=== PATIENT | female | born 1940 | race Caucasian/White ===

== ENCOUNTER 2016-12-29 12:46 | Inpatient (IN) | payer MEDICARE, OTHER ==
[2016-12-29] MEDS ORDERED: SODIUM CHLORIDE 0.9% 1,000 ML IV ONE ×2 (13:45→21:03)
--- NOTE | 2016-12-29 13:56 | ED Physician Documentation ---
PD HPI ALTERED MENTAL STATUS - Stated complaint Stated Complaint: WEAKNESS,SHAKEY - Chief complaint Chief Complaint: Neuro - History obtained from History obtained from: Patient, Family - History of Present Illness Timing - onset: Other (76-year-old woman with small cell lung cancer, recurrent and metastatic. Most recently she is on oral topotecan last taken December 13- .She presents with a week worth of worsening fatigue and breathlessnessNeutropenia, 100, and thrombocytopenia, 10,000 and they were concerned for potential infection. She does have hypotension on check-in, but these are close to her blood pressure numbers at home. There is no fever. No cough. No urinary complaints. No black or tarry stools.) Review of Systems Ten Systems: 10 systems reviewed and negative Constitutional: reports: Fatigue. denies: Fever, Chills Nose: denies: Rhinorrhea / runny nose, Congestion Cardiac: denies: Chest pain / pressure, Palpitations Respiratory: reports: Dyspnea. denies: Cough GI: denies: Abdominal Pain, Nausea, Vomiting, Diarrhea PD PAST MEDICAL HISTORY - Past Medical History Cardiovascular: Congestive heart failure, Hypertension Respiratory: Shortness of breath, Other Neuro: None Endocrine/Autoimmune: Type 2 diabetes GI: GERD, Other : None HEENT: Chronic vision loss Psych: None Musculoskeletal: Osteoarthritis, Osteoporosis, Chronic back pain Derm: None Other Past Medical History: Lung cancer - Past Surgical History Past Surgical History: Yes General: EGD, Colonoscopy Ortho: Other HEENT: Cataracts, Tonsil/Adenoidectomy - Present Medications Home Medications: Ambulatory Orders Medication Instructions Recorded Confirmed Metoprolol Tartrate [Lopressor] 25 mg PO BID 12/11/12 12/29/16 Acetaminophen [Tylenol] 650 mg PO BID PRN 12/10/13 12/29/16 Furosemide 20 mg PO DAILY 01/10/15 12/29/16 Lidocaine Patch 5% [Lidoderm Patch] 1 each TOP DAILY PRN 06/02/15 12/29/16 Cholecalciferol (Vitamin D3) 2,000 units PO DAILY 04/05/16 12/29/16 [Vitamin D3] Loperamide HCl [Imodium A-D] 2 mg PO QID PRN 04/12/16 12/29/16 Loratadine [Claritin] 10 mg PO QPM 08/30/16 12/29/16 - Allergies Allergies/Adverse Reactions: Allergies Allergy/AdvReac Type Severity Reaction Status Date / Time gluten Allergy Intermediate Cramps Verified 07/21/15 13:44 Sulfa (Sulfonamide Allergy Intermediate Rash Verified 07/21/15 13:44 Antibiotics) - Social History Does the pt smoke?: Yes Smoking Status: Current every day smoker Does the pt drink ETOH?: No Does the pt have substance abuse?: No - Immunizations Immunizations are current?: Yes - POLST Patient has POLST: No PD ED PE NORMAL - Vitals Vital signs reviewed: Yes - General General: Alert and oriented X 3, No acute distress - HEENT HEENT: PERRL, EOMI - Neck Neck: Supple, no meningeal sign, No bony TTP - Cardiac Cardiac: Other (Irregularly irregular, no murmur. There is a port in the left chest without tenderness or redness.) - Respiratory Respiratory: No respiratory distress, Clear bilaterally - Abdomen Abdomen: Non tender - Derm Derm: No rash - Extremities Extremities: No edema, No calf tenderness / cord - Neuro Neuro: Alert and oriented X 3, Normal speech - Psych Psych: Normal mood, Normal affect Results - Vitals Vitals: Vital Signs - 24 hr 12/29/16 12/29/16 12/29/16 12:52 14:53 15:44 Temperature 37.2 C Heart Rate 101 H 106 H 108 H Respiratory 18 14 16 Rate Blood Pressure 88/52 L 103/62 107/68 O2 Saturation 98 97 96 12/29/16 12/29/16 12/29/16 17:29 19:00 19:11 Temperature Heart Rate 104 H 110 H 104 H Respiratory 15 16 13 Rate Blood Pressure 141/61 H 85/67 L 110/52 L O2 Saturation 97 96 99 12/29/16 19:30 Temperature Heart Rate 114 H Respiratory 18 Rate Blood Pressure 128/61 O2 Saturation 97 Oxygen O2 Source [With Activity] Room air O2 Source [Without Activity] Room air O2 Source Room air - EKG (time done) 1410 Rate: Rate (enter#) (92) Rhythm: Atrial fibrillation [place]: Normal Ischemia: Normal ST segments. No: ST elevation c/w ischemia Computer interpretation: Agree with computer - Labs Labs: Laboratory Tests 12/29/16 12/29/16 12/29/16 13:58 13:58 13:58 WBC 0.4 L* RBC 2.89 L Hgb 9.9 L Hct 29.5 L MCV 101.9 H MCH 34.4 H MCHC 33.7 RDW 14.0 Plt Count 10 L* MPV 9.4 Neut # 0.1 L* Lymph # 0.2 L [place] # 0.1 Eos # 0.0 Baso # 0.0 Absolute Nucleated RBC 0.00 Band Neuts % (Manual) Not Reportable Neutrophils # (Manual) FARE COLLECTOR Nucleated RBCs 0.1 Differential Comment MANUAL=AUTO DIFF RBC Morph Micro Appear 1+ MACROCYTOSIS Sodium 134 L Potassium 3.8 Chloride 103 Carbon Dioxide 22 Anion Gap 9.0 BUN 28 H Creatinine 1.0 Estimated GFR (MDRD) 54 L Glucose 110 H Lactic Acid Calcium 8.9 Magnesium 1.4 L Total Bilirubin 0.4 AST 20 ALT 13 Alkaline Phosphatase 63 Troponin I < 0.04 Total Protein 6.4 L Albumin 3.1 L Globulin 3.3 Albumin/Globulin Ratio 0.9 L Lipase 17 L Urine Color Urine Clarity Urine pH Ur Specific [place] Urine Protein Urine Glucose (UA) Urine Ketones Urine Occult Blood Urine Nitrite Urine Bilirubin Urine Urobilinogen Ur Leukocyte Esterase Urine RBC Urine WBC Ur Squamous Epith Cells Urine Bacteria Ur Microscopic Review Urine Culture Comments Blood Type 12/29/16 12/29/16 12/29/16 13:58 14:19 16:40 WBC RBC Hgb Hct MCV MCH MCHC RDW Plt Count MPV Neut # Lymph # [place] # Eos # Baso # Absolute Nucleated RBC Band Neuts % (Manual) Neutrophils # (Manual) Nucleated RBCs Differential Comment RBC Morph Micro Appear Sodium Potassium Chloride Carbon Dioxide Anion Gap BUN Creatinine Estimated GFR (MDRD) Glucose Lactic Acid 1.6 Calcium Magnesium Total Bilirubin AST ALT Alkaline Phosphatase Troponin I Total Protein Albumin Globulin Albumin/Globulin Ratio Lipase Urine Color YELLOW Urine Clarity CLEAR Urine pH 5.5 Ur Specific [place] 1.010 Urine Protein NEGATIVE Urine Glucose (UA) NEGATIVE Urine Ketones NEGATIVE Urine Occult Blood SMALL H Urine Nitrite NEGATIVE Urine Bilirubin NEGATIVE Urine Urobilinogen 0.2 (NORMAL) Ur Leukocyte Esterase NEGATIVE Urine RBC 0-5 Urine WBC 0-3 Ur Squamous Epith Cells MANY Squamous H Urine Bacteria Moderate H Ur Microscopic Review INDICATED Urine Culture Comments NOT INDICATED Blood Type O NEGATIVE - Rads (name of study) CT PA Radiology: EMP read contemporaneously (No PE, chronic lung dz, lung base lensions, IVC reflux.) PD MEDICAL DECISION MAKING - ED course ED course: 76-year-old woman presents with fatigue and breathlessness undergoing oral chemotherapy for recurrent small cell lung cancer. She has new pancytopenia without evidence of bleeding and there is no clinical evidence of infection or fever. I was concerned for PE given active cancer and breathlessness, however this was not found on CT pulmonary angiogram. I spoke with Dr. Huizar, on- call for Dr. Almaguer who felt there was no specific need for admission but the patient was counseled on returning immediately for fever and I also spoke with the head of the [facility] (Lillie Orellana). It took some time to get platelets and they were transfused. About 8 PM she became more severely ill with heart rates up to 200 and A. fib with rigors and acute confusion. She was administered divided doses of metoprolol and then diltiazem IV with some borderline hypotensive episodes which were treated with fluids and calcium IV. At 9:30 PM she was noted to have a fever, 100.3, the blood cultures and lactate were repeated, and she was administered cefepime and vancomycin IV for now neutropenic fever. Spoke with Dr. Nolan for admission at 9:31 PM. - Critical Care Time(min): 52 Time Includes: Direct patient care, Review records, Reassess patient, Document care, Coordinate care, Medical consult, Family consult for tx dec Data interpretation: Labs Procedures included in critical care time: Peripheral IV Procedures excluded from critical care time: EKG Departure - Departure Disposition: 66 [facility] DC/Xfer Clinical Impression: Pancytopenia, Neutropenic fever Small cell lung cancer Qualifiers: Laterality: unspecified laterality Qualified Code(s): C34.90 - Malignant neoplasm of unspecified part of unspecified bronchus or lung Dyspnea Qualifiers: Dyspnea type: unspecified Qualified Code(s): R06.00 - Dyspnea, unspecified Fatigue Qualifiers: Fatigue type: unspecified Qualified Code(s): R53.83 - Other fatigue Condition: Stable Record reviewed to determine appropriate education?: Yes
[2016-12-29 14:21] LABS: ALBUMIN/GLOBULIN RATIO 0.9 (1.0-2.2); BILIRUBIN,TOTAL 0.4 mg/dL (0.2-1.0); CALCIUM 8.9 mg/dL (8.5-10.3); MAGNESIUM 1.4 mg/dL (1.7-2.8); POTASSIUM 3.8 mmol/L (3.5-5.0); TOTAL PROTEIN 6.4 g/dL (6.7-8.2)
[2016-12-29 14:26] LABS: BASOPHILS % (AUTO) 0.2 %; EOSINOPHILS % (AUTO) 0.3 %; HCT - HEMATOCRIT 29.5 % (37.0-47.0); HGB - HEMOGLOBIN 9.9 g/dL (12.0-16.0); LYMPHOCYTES # (AUTO) 0.2 10^3/uL (1.5-3.5); LYMPHOCYTES % (AUTO) 53.7 %; MEAN CORPUSCULAR HEMOGLOBIN 34.4 pg (27.0-31.0); MEAN CORPUSCULAR HGB CONC 33.7 g/dL (32.0-36.0); MEAN CORPUSCULAR VOLUME 101.9 fL (81.0-99.0); MEAN PLATELET VOLUME 9.4 fL (7.9-10.8); MONOCYTES # (AUTO) 0.1 10^3/uL (0.0-1.0); MONOCYTES % (AUTO) 14.4 %; NEUTROPHILS % (AUTO) 31.4 %; NUCLEATED RED BLOOD CELLS AUTO 0.1 /100WBC; RED BLOOD COUNT 2.89 10^6/uL (4.20-5.40); UNCORRECTED WHITE BLOOD COUNT 0.4 x10^3/uL
[2016-12-29 14:28] LABS: NEUTROPHILS # (AUTO) 0.1 10^3/uL (1.5-6.6); WHITE BLOOD COUNT 0.4 x10^3/uL (4.8-10.8)
[2016-12-29 14:51] LABS: NP AUTO DIFFERENTIAL? NO; NP MAN DIFFERENTIAL? YES
[2016-12-29] MEDS ORDERED: IOPAMIDOL-300 100 ML VIAL IVP ONE (15:41)
--- NOTE | 2016-12-29 16:00 | CT Preliminary Report ---
Exam: CT Chest Angio (PE) IMPRESSION: 1. Negative for pulmonary embolism at this time. Unremarkable aorta. 2. Localized rounded densities in both lung bases with associated infiltrative density and extensive underlying chronic lung disease. Inflammatory lesions are likely. Follow-up is recommended to confirm complete clearing. 3. Marked IVC reflux indicating right heart dysfunction. Dilation of right and left atria. [facility] SITE ID: [id number]
--- NOTE | 2016-12-29 16:02 | CT Report ---
EXAM: CT ANGIOGRAM CHEST EXAM DATE: 12/29/2016 03:40 PM. CLINICAL HISTORY: Dyspnea, [facility]. COMPARISON: 23 August 2016. TECHNIQUE: Routine helical imaging was performed through the chest in the pulmonary arterial phase. I V Contrast: 80 cc Isovue 300. Reconstructions: Sagittal, coronal, and 3-D MIP. In accordance with CT protocol optimization, one or more of the following dose reduction techniques w ere utilized for this exam: automated exposure control, adjustment of mA and/or KV based on patient s ize, or use of iterative reconstructive technique. FINDINGS: Pulmonary Arteries: Diagnostic quality: Adequate through the segmental arteries. No evidence for acute or chronic pulmona ry emboli. RV/LV is within normal limits. There is no interventricular septal bowing. There is marked reflux of contrast material in the IVC indicating right heart dysfunction. Lungs/Pleura: Diffuse emphysematous changes with numerous blebs and small bullae especially in the ap ices. Scarring and scattered fibrotic changes. Mild bronchiectasis. Continued decrease of left lower lobe nodule now measuring about 1.5 x 1.1 cm area of new posterior left lower lobe density measuring about 2.1 x 1.6 cm on series 5 image 107. Similar ill-defined density in right base measuring 1.2 cm in diameter on image 122. Mild hazy increased density in the same area. No effusion or pneumothorax. Mediastinum: Normal overall heart size. Enlarged right and left atria. No pericardial effusion. At le ast three-vessel coronary artery calcification. No lymphadenopathy. Thoracic Aorta: Unremarkable. Upper Abdomen: Unremarkable. Other: Osteopenia. Degenerative changes. Left Port-A-Cath. IMPRESSION: 1. Negative for pulmonary embolism at this time. Unremarkable aorta. 2. Localized rounded densities in both lung bases with associated infiltrative density and extensive underlying chronic lung disease. Inflammatory lesions are likely. Follow-up is recommended to confirm complete clearing. 3. Marked IVC reflux indicating right heart dysfunction. Dilation of right and left atria. [facility] Referring Provider Line: [phone] SITE ID: [id number]
[2016-12-29 16:54] LABS: BILIRUBIN,URINE NEGATIVE (NEGATIVE); PH,URINE 5.5 PH (5.0-7.5)
[2016-12-29 16:55] LABS: UA w/ MICROSCOPIC CHARGE YES
[2016-12-29 17:00] LABS: UR CULTURE IF IND NOT INDICATED; WBC,URINE 0-3 /HPF (0-5)
[2016-12-29] MEDS ORDERED: METOPROLOL 5 MG/5 ML VIAL IVP STA (20:39)
[2016-12-29] MEDS ORDERED: METOPROLOL TARTRATE 50 MG TABLET PO STA ×2 (20:39→22:59)
[2016-12-29] MEDS ORDERED: METOPROLOL TARTRATE 25 MG TABLET ONE ×2 (20:45→22:45)
[2016-12-29] MEDS ORDERED: METOPROLOL 5 MG/5 ML VIAL IVP ONE (20:45)
[2016-12-29] MEDS ORDERED: CALCIUM GLUCONATE 1000 MG/10 ML VIAL IVP STA (21:03)
[2016-12-29] MEDS ORDERED: diltiaZEM INJ 5 MG/ML VIAL IVP STA (21:03)
[2016-12-29] MEDS ORDERED: CALCIUM GLUCONATE 1000 MG/10 ML VIAL ONE (21:13)
[2016-12-29] MEDS ORDERED: diltiaZEM INJ 5 MG/ML VIAL ONE (21:14)
[2016-12-29] MEDS ORDERED: ACETAMINOPHEN 1,000 MG/100 ML 100 ML IV STA (21:32)
[2016-12-29] MEDS ORDERED: CEFEPIME 1 GM in SODIUM CHLORIDE 0.9% MINIBAG 100 ML IV STA (21:32)
[2016-12-29] MEDS ORDERED: VANCOMYCIN INJ 1 GM in SODIUM CHLORIDE 0.9% 250 ML IV STA (21:32)
[2016-12-29] MEDS ORDERED: ACETAMINOPHEN 1,000 MG/100 ML 100 ML IV ONE (21:40)
[2016-12-29] MEDS ORDERED: HYDROcod/ACETAM 5/325 MG TABLET PO PRN (22:00)
[2016-12-29] MEDS ORDERED: ONDANSETRON ODT 4 MG TABLET TL PRN (22:00)
[2016-12-29] MEDS ORDERED: ACETAMINOPHEN 325 MG TABLET PO PRN (22:00)
[2016-12-29] MEDS ORDERED: ONDANSETRON 4 MG/2 ML VIAL IVP PRN (22:00)
[2016-12-29] MEDS ORDERED: LOPERAMIDE 2 MG CAPSULE PO PRN (22:02)
[2016-12-29] MEDS ORDERED: LIDOCAINE PATCH 5% TOP PRN (22:02)
[2016-12-29] MEDS ORDERED: VANCOMYCIN 1 GM VIAL ONE (22:46)
[2016-12-29] MEDS ORDERED: VANCOMYCIN PER PHARMACY 1 GM in SODIUM CHLORIDE 0.9% 250 ML IV SCH (23:00)
--- NOTE | 2016-12-29 23:33 | ADVANCE CARE PLANNING NOTE ---
Advance Care Planning - Date/Time Date: 12/29/16 Time: 22:00 - Purpose of encounter Text: Establish wishes for ongoing treatment of potentially teminal cancer in the face of acute severe illness - Parties in attendance Parties in attendance: patient, , daughter and granddaughter with admitting Hospitalist - Decisional capacity Decisional capacity of: patient is impaired. 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 She didn't think she would live beyond 2014 and has been grateful and happy to be living now. she relies on her for everything and has an in home support person come by once a week to bath her. They also have someone help cleaning the house. Treatment was rough and she had two admission for pneumonia/infection in early 2013, a hip fracture after a fall, and an admit for a heart attack in 2014. After her treatment the first time ended in September 2013, she gained weight. Had energy for family gatherings and loved to visit and be visited by friends, family, temple acquaintances. She had definite memory problems but family and worked around those deficits and feel she's had a good quality of life. She was tolerating her first line chemotherapy well and had little side effects other that being more tired than usual and eating less. Food tasted good. No severe diarrhea and no mucositis. She describes still being very content with life. Then the tumor progressed and she was switched to second line chemotherapy early this month. She hasn't done well. Food tastes bad and she has no appetite whatsoever. weight loss is occurring and her fatigue has become severe. she is so short of breath that just getting out of bed to go the bathroom to urinate is completely exhausting. she's sad because she doesn't have the energy to talk to her visitors and she misses that. so sad, a little lonely without all the company. - Objective/Medical story Objective/Medical Story: Small cell lung cancer, limited, 03/2013, with 4 cycles of etoposide and cysplatinin. Treatment completed 09/2013 with prophylactic whole brain radiation. complications were neutropenic fever with 2 admits for pneumonia, iron deficiency requiring infusion, memory loss, mucositis, weight loss. But she recovered and stabilized and only other problems were the fall with hip fracture and the afib with RVR troponin to 5 and subsequent catheterization. Stable for 2 years until recurrent small cell to left lung diagnosed 03/2016. First line with iritotecan failed and progression of tumor occurred. Switched to topotecan early this month and has had 1 treatment with profound pancytopenia as a result. PMH: chronic atrial fib, no longer on coumadin HTN COPD and current smoker memory loss dependent on for bills, house, etc. prolapsed bladder and uterus with ongoing incontinence Type 2 DM diet controlled HPL allergic rhinitis - Goals of Care Goals of care determinations: She wants to live as long as possible but only if she can participate in life with friends and family. If she is reduced to being bed bound, can no longer visit, talk to people, she may want to consider treatment. But for now, her current quality of life even though she is completely dependent on , is good for her. If she has a cardiopulmonary arrest from ND, arrhythmia, respiratory failure: do not resuscitate and do not intubate. - Plan Plan: admit for current episode of sepsis and treat with IV antibiotics, IVF, pressors , blood products as necessary. If she stabilizes and leaves, will probably want to continue therapy as guided by Dr. Almaguer from Oncology as long as her quality of life defined by socialization continues. - Code Status Code Status: Do Not Attempt Resuscitation - Time Spent on Advance Care Planning Time spent on advance care plannin minutes
[2016-12-30] MEDS: METOPROLOL TARTRATE 50 MG TABLET PO SCH ×4 (00:37→20:47)
[2016-12-30] MEDS: SODIUM CHLORIDE FLUSH 0.9% 10 ML SYRINGE IVP SCH ×4 (00:38→22:42)
[2016-12-30] MEDS: SODIUM CHLORIDE 0.9% 1,000 ML IV SCH ×3 (00:39→16:07)
[2016-12-30] MEDS ORDERED: SODIUM CHLORIDE 0.9% 500 ML IV ONE (00:47)
[2016-12-30] MEDS ORDERED: SODIUM CHLORIDE 0.9% 500 ML IV SCH (01:51)
[2016-12-30 02:27] LABS: BILIRUBIN,URINE NEGATIVE (NEGATIVE); PH,URINE 5.5 PH (5.0-7.5)
[2016-12-30 02:33] LABS: UR CULTURE IF IND NOT INDICATED; WBC,URINE 0-3 /HPF (0-5)
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
[2016-12-30] MEDS ORDERED: CEFEPIME 1 GM in SODIUM CHLORIDE 0.9% MINIBAG 100 ML IV SCH (03:00)
[2016-12-30] MEDS: DOPamine 800 MG/500 ML 500 ML IV SCH (03:43)
[2016-12-30] MEDS: SODIUM CHLORIDE FLUSH 0.9% 10 ML SYRINGE IVP PRN ×3 (05:50→20:52)
[2016-12-30 06:17] LABS: CALCIUM 8.2 mg/dL (8.5-10.3); POTASSIUM 3.2 mmol/L (3.5-5.0)
[2016-12-30] MEDS ORDERED: POTASSIUM CHLORIDE 20 MEQ TABLET PO ONE (08:00)
[2016-12-30 08:28] LABS: BASOPHILS % (AUTO) 0.3 %; EOSINOPHILS % (AUTO) 0.5 %; HCT - HEMATOCRIT 28.8 % (37.0-47.0); HGB - HEMOGLOBIN 9.6 g/dL (12.0-16.0); LYMPHOCYTES # (AUTO) 0.1 10^3/uL (1.5-3.5); LYMPHOCYTES % (AUTO) 30.2 %; MEAN CORPUSCULAR HEMOGLOBIN 33.8 pg (27.0-31.0); MEAN CORPUSCULAR HGB CONC 33.2 g/dL (32.0-36.0); MEAN CORPUSCULAR VOLUME 101.7 fL (81.0-99.0); MEAN PLATELET VOLUME 8.1 fL (7.9-10.8); MONOCYTES % (AUTO) 8.5 %; NEUTROPHILS % (AUTO) 60.5 %; NUCLEATED RED BLOOD CELLS AUTO 1.4 /100WBC; RED BLOOD COUNT 2.83 10^6/uL (4.20-5.40); RED CELL DISTRIBUTION WIDTH 14.4 % (12.0-15.0); UNCORRECTED WHITE BLOOD COUNT 0.3 x10^3/uL
[2016-12-30 08:34] LABS: NEUTROPHILS # (AUTO) 0.2 10^3/uL (1.5-6.6); WHITE BLOOD COUNT 0.3 x10^3/uL (4.8-10.8)
[2016-12-30] MEDS: NEUTRA-PHOS 250 MG TABLET PO SCH ×2 (08:38→10:58)
[2016-12-30] MEDS: MAGNESIUM SULFATE 2 GRAM 50 ML IV SCH ×2 (08:38→09:51)
[2016-12-30 09:01] LABS: PLATELET ESTIMATE, MANUAL DECREASED (<130,000) (NORMAL)
[2016-12-30] MEDS: POLYETHYLENE GLYCOL 3350 17 GM PACKET PO SCH (09:02)
[2016-12-30] MEDS ORDERED: SODIUM CHLORIDE FLUSH 0.9% 10 ML SYRINGE IVP ONE (09:44)
[2016-12-30] MEDS ORDERED: SODIUM CHLORIDE 0.9% 1,000 ML IV ONE (15:09)
--- NOTE | 2016-12-30 15:22 | PROVIDER PROGRESS NOTE ---
Assessment/Plan - Problem List (1) Septic shock Assessment/Plan: Patient presented to the ER for a platelet transfusion but while in the ER she spiked a fever of 38.3 and was neutropenic with a ANC of 100 Work up showed possible pneumonia on CT chest Once patient arrived on floor she became hypotensive with BP down to 70/45 and tachycardic despite several liters of IVF Patient was then transferred to ICU and placed on a dobutamine drip Patients lactic acid was elevated to 8.4 Other possible source is infection of the port with bacteremia but port does not appear infected Plan: Wean off dopamine Echo to look for possible cardiogenic shock as patient has elevated troponin IVFs IV Vanco and cefepime Monitor lactic acid down to 1.9 this am Neutropenic percautions Monitor closely in ICU Blood cultures pending (2) Neutropenic fever Assessment/Plan: Patient presented with ANC of 100 as she is on chemo for recurrence of small cell lung ca and was found to have fever in ER up to 38.3 Patient went into septic shock and admitted to ICU on a dopamine drip Source appears to be pneumonia Plan: Monitor neutrophil count IV abx with Vanco and cefepime Monitor for fevers Awaiting blood cultures (3) HCAP (healthcare-associated pneumonia) Assessment/Plan: Neutropenic fever with septic shock likely secondary to HCAP as patient is on chemotherapy and CT chest shows rounded densities with associated infiltrative density which could be secondary to infectious process Patient is on 2 L of O2 Plan: IV vanco and cefepime Blood cx pending Supplemental O2 Monitor closely (4) Elevated troponin Assessment/Plan: Troponin elevated at 0.78 This is most likely secondary to septic shock with lactic acid also being 8.4 However Echo shows EF of 25% which is huge decline from past Echo in 2015 with 50% There is global hypokinesis without regional wall motion abnormalities Patient will need cardiology evaluation but currently is too sick to be evaluated Plan: Start lipitor, metoprolol and lisinopril Patient cannot get ASA as Plt count is only 18 No heparin as patients plts are 18K too high of a risk of bleeding Trend Trop (5) Systolic heart failure Qualifiers: Heart failure chronicity: unspecified heart failure chronicity Qualified Code(s): I50.20 - Unspecified systolic (congestive) heart failure Assessment/Plan: Echo shows EF of 25% which appears acute normal EF in 2015 Patient also with elevated Trop this could be secondary to stress from current infection or shock to the myocardium vs myocardial ischemia from [place] which is unlikely given lack of chest pain or EKG changes Patient hypoxic but does not appear volume overloaded on exam or on CT Patients hypotension maybe a result of new onset heart failure or shock to the myocardium Plan: Optimal treatment for systolic heart failure Metoprolol, lisinopril and consider aldactone once patient more stable and off pressors Will need cardiology evaluation once more stable Monitor Tele (6) Pancytopenia Assessment/Plan: Secondary to chemotherapy Patients neutropenic with ANC of 100, anemic with Hb of 9.9 and thrombocytopenic with Plt count of 18 Patient presented with plt count of 10 and received 6 pack Plt transfusion Monitor CBC daily Transfuse if hb less than 7 plts less than 10 or bleeding (7) Small cell lung cancer Qualifiers: Laterality: unspecified laterality Qualified Code(s): C34.90 - Malignant neoplasm of unspecified part of unspecified bronchus or lung Assessment/Plan: Recurrent Small Cell Lung Ca On chemo Pancytopenic Has a port Will need to hold off on chemo till she is over current infection (8) Hypokalemia Assessment/Plan: Replace K Monitor (9) Hypophosphatemia Assessment/Plan: Replace Phos Monitor (10) Hypomagnesemia Assessment/Plan: Replace Mg Monitor (11) Chronic atrial fibrillation Assessment/Plan: In a fib on EKG Rate is elevated secondary to sepsis Not on coumadin Monitor on tele Will start metoprolol once patients BP is improved and no longer in shock - Current Meds Current Meds: Current Medications Generic Name Dose Route Start Last Admin Trade Name Freq PRN Reason Stop Dose Admin Sodium Chloride 1,000 mls @ 100 mls/hr 12/29/16 22:00 12/30/16 05:49 Normal Saline 0.9% IV 100 mls/hr .Q10H HENRIETTA Administration Dopamine HCl/Dextrose 500 mls @ 2.753 mls/hr 12/30/16 03:00 12/30/16 08:30 Dopamine IV 0 mcg/kg/min .Q72H HENRIETTA Titration Protocol 2 MCG/KG/MIN Metoprolol Tartrate 25 mg 12/29/16 23:00 12/30/16 09:02 Lopressor PO Not Given BID HENRIETTA Polyethylene Glycol 17 gm 12/30/16 09:00 12/30/16 09:02 Miralax PO Not Given DAILY HENRIETTA Sodium Chloride 10 ml 12/29/16 22:00 12/30/16 05:50 Normal Saline Flush 0.9% IVP 10 ml Q8HR HENRIETTA Administration Sodium Chloride 10 ml 12/29/16 22:00 12/30/16 11:03 Normal Saline Flush 0.9% IVP 10 ml PRN PRN Administration NEEDED PER PROVIDER ORDERS - Lab Result Lab results reviewed: Yes Fish Bone Diagrams: 12/30/16 08:17 12/30/16 05:42 Other Lab Results: Laboratory Results WBC 0.3 x10^3/uL (4.8-10.8) L* 12/30/16 08: RBC 2.83 10^6/uL (4.20-5.40) L 12/30/16 08: Hgb 9.6 g/dL (12.0-16.0) L 12/30/16 08:17 Hct 28.8 % (37.0-47.0) L 12/30/16 08:17 MCV 101.7 fL (81.0-99.0) H 12/30/16 08:17 MCH 33.8 pg (27.0-31.0) H 12/30/16 08: MCHC 33.2 g/dL (32.0-36.0) 12/30/16 08: RDW 14.4 % (12.0-15.0) 12/30/16 08:17 Plt Count 18 10^3/uL (130-450) L* 12/30/16 08: MPV 8.1 fL (7.9-10.8) 12/30/16 08:17 Neut # 0.2 10^3/uL (1.5-6.6) L* 12/30/16 08:17 Lymph # 0.1 10^3/uL (1.5-3.5) L 12/30/16 08:17 Tucker # 0.0 10^3/uL (0.0-1.0) 12/30/16 08:17 Eos # 0.0 10^3/uL (0.0-0.7) 12/30/16 08: Baso # 0.0 10^3/uL (0.0-0.1) 12/30/16 08:17 Absolute Nucleated RBC 0.00 x10^3/uL 12/30/16 08:17 Band Neuts % (Manual) Not Reportable 12/29/16 13:58 Neutrophils # (Manual) CUSTOMER QUALITY ENGINEER 12/29/16 13:58 Nucleated RBCs 1.4 /100WBC 12/30/16 08:17 Differential Comment MANUAL=AUTO DIFF 12/29/16 13:58 Manual Slide Review Indicated 12/30/16 08: Platelet Estimate DECREASED (<130,000) (NORMAL) 12/30/16 08:17 RBC Morph Micro Appear 2+ ANISOCYTOSIS (NORMAL) 1+ MACROCYTOSIS (NORMAL) 12/30/16 08: RBC Morph Micro Appear 2+ ANISOCYTOSIS (NORMAL) 1+ MACROCYTOSIS (NORMAL) 12/30/16 08:17 Sodium 137 mmol/L (135-145) 12/30/16 05:42 Potassium 3.2 mmol/L (3.5-5.0) L 12/30/16 05:42 Chloride 109 mmol/L (101-111) 12/30/16 05:42 Carbon Dioxide 19 mmol/L (21-32) L 12/30/16 05:42 Anion Gap 9.0 (6-13) 12/30/16 05:42 BUN 26 mg/dL (6-20) H 12/30/16 05:42 Creatinine 1.0 mg/dL (0.4-1.0) 12/30/16 05:42 Estimated GFR (MDRD) 54 (>89) L 12/30/16 05:42 Glucose 111 mg/dL (70-100) H 12/30/16 05:42 Lactic Acid 1.9 mmol/L (0.5-2.2) 12/30/16 08:17 Calcium 8.2 mg/dL (8.5-10.3) L 12/30/16 05:42 Phosphorus 2.4 mg/dL (2.5-4.6) L 12/30/16 05:42 Magnesium 2.7 mg/dL (1.7-2.8) 12/30/16 14:35 Total Bilirubin 0.4 mg/dL (0.2-1.0) 12/29/16 13:58 AST 20 IU/L (10-42) 12/29/16 13:58 ALT 13 IU/L (10-60) 12/29/16 13:58 Alkaline Phosphatase 63 IU/L (42-121) 12/29/16 13:58 Troponin I 0.55 ng/mL (<0.49) H* 12/30/16 14:35 Total Protein 6.4 g/dL (6.7-8.2) L 12/29/16 13:58 Albumin 3.1 g/dL (3.2-5.5) L 12/30/16 08:17 Globulin 3.3 g/dL (2.1-4.2) 12/29/16 13:58 Albumin/Globulin Ratio 0.9 (1.0-2.2) L 12/29/16 13:58 Lipase 17 U/L (22-51) L 12/29/16 13:58 Urine Color YELLOW 12/30/16 02:10 Urine Clarity CLEAR (CLEAR) 12/30/16 02:10 Urine pH 5.5 PH (5.0-7.5) 12/30/16 02:10 Ur Specific [place] <=1.005 (1.002-1.030) 12/30/16 02:10 Urine Protein NEGATIVE mg/dL (NEGATIVE) 12/30/16 02:10 Urine Glucose (UA) NEGATIVE mg/dL (NEGATIVE) 12/30/16 02:10 Urine Ketones NEGATIVE mg/dL (NEGATIVE) 12/30/16 02:10 Urine Occult Blood SMALL (NEGATIVE) H 12/30/16 02:10 Urine Nitrite NEGATIVE (NEGATIVE) 12/30/16 02:10 Urine Bilirubin NEGATIVE (NEGATIVE) 12/30/16 02:10 Urine Urobilinogen 0.2 (NORMAL) E.U./dL (NORMAL) 12/30/16 02:10 Ur Leukocyte Esterase NEGATIVE (NEGATIVE) 12/30/16 02:10 Urine RBC 0-5 /HPF (0-5) 12/30/16 02:10 Urine WBC 0-3 /HPF (0-5) 12/30/16 02:10 Ur Squamous Epith Cells FEW Squamous (<= Few) 12/30/16 02:10 Urine Bacteria Few /HPF (None Seen) 12/30/16 02:10 Ur Microscopic Review INDICATED 12/29/16 16:40 Urine Culture Comments NOT INDICATED 12/30/16 02:10 Last Dose Date UNK 12/29/16 22:02 Last Dose Time UNK 12/29/16 22:02 Digoxin < 0.2 ng/mL 12/29/16 22:02 Blood Type O NEGATIVE 12/29/16 14:19 - EKG Results EKG Interpreted Independently: Yes EKG Findings: Atrial fibrillation - Diagnostic Imaging Results Diagnostic Imaging Results: Final report reviewed - Additional Planning Condition/Complexity: Critical My Orders: My Active Orders 12/30/16 11:00 Echo Transthoracic Complete [ECHO] Stat 12/30/16 15:09 Sodium Chloride 0.9% [Normal Saline 0.9%] 1,000 ml IV ONCE 12/30/16 20:30 TROPONIN I [IAI] Q6H 12/30/16 Lunch Regular Diet [DIET] 01/03/17 03:30 VANCOMYCIN TROUGH [CHEM] Timed Plan Discussed with:: Patient, Family Time Spent: 31-60 minutes Subjective - Subjective Patient Reports: Feeling Better (She feels better this morning. No fever since last night. She was eating states her appetite is not bad. She is not nauseated or vomiting. She denies any chest pain. She denies any cough.) Nursing Reports: No Complaints Objective Vital Signs: Vital Signs - 24 hr 12/29/16 12/29/16 12/29/16 22:06 22:30 23:00 Temperature 100.1 C H 38.2 C H Heart Rate 128 H 130 H Heart Rate [ Brachial] Heart Rate [ Monitoring electrodes] Respiratory 16 27 H Rate Blood Pressure 108/51 L 98/57 L Blood Pressure [Left Brachial artery] Blood Pressure [Right Brachial artery] O2 Saturation 94 95 12/29/16 12/29/16 12/30/16 23:01 23:30 00:35 Temperature 38.3 C H Heart Rate Heart Rate [ 72 115 H Brachial] Heart Rate [ Monitoring electrodes] Respiratory 20 Rate Blood Pressure 98/57 L Blood Pressure 86/70 L [Left Brachial artery] Blood Pressure 70/45 L [Right Brachial artery] O2 Saturation 95 12/30/16 12/30/16 12/30/16 00:37 01:24 02:21 Temperature Heart Rate Heart Rate [ 113 H 93 Brachial] Heart Rate [ Monitoring electrodes] Respiratory Rate Blood Pressure 70/45 L Blood Pressure 78/51 L [Left Brachial artery] Blood Pressure 77/42 L 75/49 L [Right Brachial artery] O2 Saturation 12/30/16 12/30/16 12/30/16 03:08 03:32 03:40 Temperature 36.9 C Heart Rate Heart Rate [ 94 110 H 121 H Brachial] Heart Rate [ Monitoring electrodes] Respiratory 20 18 Rate Blood Pressure Blood Pressure [Left Brachial artery] Blood Pressure 87/49 L 97/58 L 90/64 [Right Brachial artery] O2 Saturation 96 98 12/30/16 12/30/16 12/30/16 03:45 03:50 03:55 Temperature Heart Rate Heart Rate [ 107 H 113 H 114 H Brachial] Heart Rate [ Monitoring electrodes] Respiratory Rate Blood Pressure Blood Pressure [Left Brachial artery] Blood Pressure 88/57 L 96/47 L 93/59 L [Right Brachial artery] O2 Saturation 12/30/16 12/30/16 12/30/16 04:00 04:15 04:30 Temperature Heart Rate Heart Rate [ 105 H 103 H 104 H Brachial] Heart Rate [ Monitoring electrodes] Respiratory 14 Rate Blood Pressure Blood Pressure [Left Brachial artery] Blood Pressure 105/72 93/58 L 89/52 L [Right Brachial artery] O2 Saturation 91 L 12/30/16 12/30/16 12/30/16 04:37 04:40 04:45 Temperature Heart Rate Heart Rate [ Brachial] Heart Rate [ 96 98 106 H Monitoring electrodes] Respiratory Rate Blood Pressure Blood Pressure [Left Brachial artery] Blood Pressure 102/50 L 94/57 L 114/63 [Right Brachial artery] O2 Saturation 12/30/16 12/30/16 12/30/16 04:50 04:55 05:00 Temperature Heart Rate Heart Rate [ Brachial] Heart Rate [ 92 90 99 Monitoring electrodes] Respiratory 18 Rate Blood Pressure Blood Pressure [Left Brachial artery] Blood Pressure 110/58 L 113/65 120/60 [Right Brachial artery] O2 Saturation 95 12/30/16 12/30/16 12/30/16 05:15 05:30 06:00 Temperature Heart Rate Heart Rate [ Brachial] Heart Rate [ 93 97 124 H Monitoring electrodes] Respiratory 20 Rate Blood Pressure Blood Pressure [Left Brachial artery] Blood Pressure 125/63 128/73 107/85 H [Right Brachial artery] O2 Saturation 98 12/30/16 12/30/16 12/30/16 06:05 06:10 06:15 Temperature Heart Rate Heart Rate [ Brachial] Heart Rate [ 130 H 133 H 136 H Monitoring electrodes] Respiratory Rate Blood Pressure Blood Pressure [Left Brachial artery] Blood Pressure 120/93 H 107/75 109/61 [Right Brachial artery] O2 Saturation 12/30/16 12/30/16 12/30/16 06:30 07:00 07:30 Temperature 36.5 C Heart Rate Heart Rate [ Brachial] Heart Rate [ 105 H 100 101 H Monitoring electrodes] Respiratory 28 H 23 Rate Blood Pressure Blood Pressure [Left Brachial artery] Blood Pressure 110/61 127/69 128/68 [Right Brachial artery] O2 Saturation 100 96 12/30/16 12/30/16 12/30/16 08:00 08:51 09:02 Temperature 36.2 C L Heart Rate Heart Rate [ Brachial] Heart Rate [ 150 H 118 H Monitoring electrodes] Respiratory 25 H 21 Rate Blood Pressure 118/72 Blood Pressure [Left Brachial artery] Blood Pressure 110/68 109/72 [Right Brachial artery] O2 Saturation 98 100 12/30/16 12/30/16 12/30/16 10:00 10:47 11:05 Temperature 36.3 C L Heart Rate Heart Rate [ Brachial] Heart Rate [ 94 92 108 H Monitoring electrodes] Respiratory 19 14 16 Rate Blood Pressure Blood Pressure [Left Brachial artery] Blood Pressure 103/73 111/62 105/91 H [Right Brachial artery] O2 Saturation 98 100 99 12/30/16 12/30/16 12/30/16 11:51 12:00 12:55 Temperature 36.8 C 37.4 C Heart Rate Heart Rate [ Brachial] Heart Rate [ 100 100 104 H Monitoring electrodes] Respiratory 17 18 15 Rate Blood Pressure Blood Pressure [Left Brachial artery] Blood Pressure 97/57 L 93/65 99/57 L [Right Brachial artery] O2 Saturation 100 98 96 12/30/16 12/30/16 12/30/16 13:44 13:55 14:56 Temperature Heart Rate Heart Rate [ Brachial] Heart Rate [ 97 91 111 H Monitoring electrodes] Respiratory 15 17 19 Rate Blood Pressure Blood Pressure [Left Brachial artery] Blood Pressure 98/60 98/60 114/84 H [Right Brachial artery] O2 Saturation 100 98 93 12/30/16 15:00 Temperature Heart Rate Heart Rate [ Brachial] Heart Rate [ 114 H Monitoring electrodes] Respiratory 17 Rate Blood Pressure Blood Pressure [Left Brachial artery] Blood Pressure 117/82 H [Right Brachial artery] O2 Saturation 98 Oxygen O2 Source Nasal cannula I&O (Last 24 Hrs): Intake and Output Totals x24h 12/28/16 12/29/16 12/30/16 23:59 23:59 23:59 Intake Total 500 1540 Output Total 1100 Balance 500 440 General: Alert, Oriented x3, Cooperative, Other (Cachectic looking female with alopecia) HEENT: Atraumatic, PERRLA, EOMI, Other (Very dry mucus membranes) Neck: Supple, No JVD, No thyromegaly, +2 carotid pulse wo bruit, No LAD Lymphatic: no adenopathy Neuro: Alert, Non Focal, CN 2-12 Grossly Intact, Oriented Times 3 Cardiovascular: Other (Irregular, tachycardic, S3) Respiratory: Chest non-tender, Rhonchi (Coarse breath sounds bilaterally) Abdomen: Normal bowel sounds, Soft, No tenderness Extremities: No clubbing, No cyanosis, No edema, Normal pulses Skin: No rashes, No breakdown - Results Results: Laboratory Results WBC 0.3 x10^3/uL (4.8-10.8) L* 12/30/16 08: RBC 2.83 10^6/uL (4.20-5.40) L 12/30/16 08:17 Hgb 9.6 g/dL (12.0-16.0) L 12/30/16 08: Hct 28.8 % (37.0-47.0) L 12/30/16 08:17 MCV 101.7 fL (81.0-99.0) H 12/30/16 08:17 MCH 33.8 pg (27.0-31.0) H 12/30/16 08:17 MCHC 33.2 g/dL (32.0-36.0) 12/30/16 08:17 RDW 14.4 % (12.0-15.0) 12/30/16 08:17 Plt Count 18 10^3/uL (130-450) L* 12/30/16 08:17 MPV 8.1 fL (7.9-10.8) 12/30/16 08:17 Neut # 0.2 10^3/uL (1.5-6.6) L* 12/30/16 08:17 Lymph # 0.1 10^3/uL (1.5-3.5) L 12/30/16 08:17 Tucker # 0.0 10^3/uL (0.0-1.0) 12/30/16 08:17 Eos # 0.0 10^3/uL (0.0-0.7) 12/30/16 08:17 Baso # 0.0 10^3/uL (0.0-0.1) 12/30/16 08:17 Absolute Nucleated RBC 0.00 x10^3/uL 12/30/16 08:17 Band Neuts % (Manual) Not Reportable 12/29/16 13:58 Neutrophils # (Manual) CUSTOMER QUALITY ENGINEER 12/29/16 13:58 Nucleated RBCs 1.4 /100WBC 12/30/16 08:17 Differential Comment MANUAL=AUTO DIFF 12/29/16 13:58 Manual Slide Review Indicated 12/30/16 08: Platelet Estimate DECREASED (<130,000) (NORMAL) 12/30/16 08:17 RBC Morph Micro Appear 2+ ANISOCYTOSIS (NORMAL) 1+ MACROCYTOSIS (NORMAL) 12/30/16 08:17 RBC Morph Micro Appear 2+ ANISOCYTOSIS (NORMAL) 1+ MACROCYTOSIS (NORMAL) 12/30/16 08:17 Sodium 137 mmol/L (135-145) 12/30/16 05:42 Potassium 3.2 mmol/L (3.5-5.0) L 12/30/16 05:42 Chloride 109 mmol/L (101-111) 12/30/16 05:42 Carbon Dioxide 19 mmol/L (21-32) L 12/30/16 05:42 Anion Gap 9.0 (6-13) 12/30/16 05:42 BUN 26 mg/dL (6-20) H 12/30/16 05:42 Creatinine 1.0 mg/dL (0.4-1.0) 12/30/16 05:42 Estimated GFR (MDRD) 54 (>89) L 12/30/16 05:42 Glucose 111 mg/dL (70-100) H 12/30/16 05:42 Lactic Acid 1.9 mmol/L (0.5-2.2) 12/30/16 08:17 Calcium 8.2 mg/dL (8.5-10.3) L 12/30/16 05:42 Phosphorus 2.4 mg/dL (2.5-4.6) L 12/30/16 05:42 Magnesium 2.7 mg/dL (1.7-2.8) 12/30/16 14:35 Total Bilirubin 0.4 mg/dL (0.2-1.0) 12/29/16 13:58 AST 20 IU/L (10-42) 12/29/16 13:58 ALT 13 IU/L (10-60) 12/29/16 13:58 Alkaline Phosphatase 63 IU/L (42-121) 12/29/16 13:58 Troponin I 0.55 ng/mL (<0.49) H* 12/30/16 14:35 Total Protein 6.4 g/dL (6.7-8.2) L 12/29/16 13:58 Albumin 3.1 g/dL (3.2-5.5) L 12/30/16 08:17 Globulin 3.3 g/dL (2.1-4.2) 12/29/16 13:58 Albumin/Globulin Ratio 0.9 (1.0-2.2) L 12/29/16 13:58 Lipase 17 U/L (22-51) L 12/29/16 13:58 Urine Color YELLOW 12/30/16 02:10 Urine Clarity CLEAR (CLEAR) 12/30/16 02:10 Urine pH 5.5 PH (5.0-7.5) 12/30/16 02:10 Ur Specific [place] <=1.005 (1.002-1.030) 12/30/16 02:10 Urine Protein NEGATIVE mg/dL (NEGATIVE) 12/30/16 02:10 Urine Glucose (UA) NEGATIVE mg/dL (NEGATIVE) 12/30/16 02:10 Urine Ketones NEGATIVE mg/dL (NEGATIVE) 12/30/16 02:10 Urine Occult Blood SMALL (NEGATIVE) H 12/30/16 02:10 Urine Nitrite NEGATIVE (NEGATIVE) 12/30/16 02:10 Urine Bilirubin NEGATIVE (NEGATIVE) 12/30/16 02:10 Urine Urobilinogen 0.2 (NORMAL) E.U./dL (NORMAL) 12/30/16 02:10 Ur Leukocyte Esterase NEGATIVE (NEGATIVE) 12/30/16 02:10 Urine RBC 0-5 /HPF (0-5) 12/30/16 02:10 Urine WBC 0-3 /HPF (0-5) 12/30/16 02:10 Ur Squamous Epith Cells FEW Squamous (<= Few) 12/30/16 02:10 Urine Bacteria Few /HPF (None Seen) 12/30/16 02:10 Ur Microscopic Review INDICATED 12/29/16 16:40 Urine Culture Comments NOT INDICATED 12/30/16 02:10 Last Dose Date UNK 12/29/16 22:02 Last Dose Time UNK 12/29/16 22:02 Digoxin < 0.2 ng/mL 12/29/16 22:02 Blood Type O NEGATIVE 12/29/16 14:19 - Procedures Procedures: Procedures INSERTION OF TOTALLY IMPLANTABLE VASC ACCESS DEVIC (05/21/13) PACKED CELL TRANSFUSION (01/10/15) PARTIAL HIP REPLACEMENT (01/10/15) REPLACEMENT OF LEFT LENS WITH SYNTH SUB, PERC APPROACH (08/12/15) REPLACEMENT OF RIGHT LENS WITH SYNTH SUB, PERC APPROACH (07/22/15)
[2016-12-30] MEDS: LORATADINE 10 MG TABLET PO SCH (20:51)
[2016-12-30] MEDS: ATORVASTATIN 40 MG TABLET PO SCH (20:51)
[2016-12-30] MEDS: CEFEPIME 1 GM in SODIUM CHLORIDE 0.9% MINIBAG 100 ML IV SCH (22:42)
[2016-12-31] MEDS: METOPROLOL 5 MG/5 ML VIAL IVP PRN ×3 (01:59→10:50)
[2016-12-31] MEDS: SODIUM CHLORIDE 0.9% 1,000 ML IV SCH ×2 (02:33→13:39)
[2016-12-31] MEDS: VANCOMYCIN INJ 500 MG in SODIUM CHLORIDE 0.9% MINIBAG 100 ML IV SCH (04:09)
[2016-12-31 06:37] LABS: BASOPHILS % (AUTO) 0.2 %; EOSINOPHILS % (AUTO) 1.3 %; HGB - HEMOGLOBIN 8.2 g/dL (12.0-16.0); LYMPHOCYTES % (AUTO) 46.5 %; MEAN CORPUSCULAR HEMOGLOBIN 33.6 pg (27.0-31.0); MEAN CORPUSCULAR HGB CONC 32.6 g/dL (32.0-36.0); MEAN PLATELET VOLUME 9.1 fL (7.9-10.8); MONOCYTES % (AUTO) 13.9 %; NEUTROPHILS % (AUTO) 38.1 %; RED BLOOD COUNT 2.43 10^6/uL (4.20-5.40); RED CELL DISTRIBUTION WIDTH 14.3 % (12.0-15.0); UNCORRECTED WHITE BLOOD COUNT 0.8 x10^3/uL
[2016-12-31] MEDS: SODIUM CHLORIDE FLUSH 0.9% 10 ML SYRINGE IVP SCH ×3 (06:42→22:12)
[2016-12-31 06:50] LABS: CALCIUM 7.6 mg/dL (8.5-10.3)
[2016-12-31 06:53] LABS: CALCIUM 7.8 mg/dL (8.5-10.3); CREATININE 0.6 mg/dL (0.4-1.0); PHOSPHORUS 2.5 mg/dL (2.5-4.6)
[2016-12-31 07:03] LABS: CALCIUM, IONIZED 1.11 mmol/L (1.15-1.33); VBG PH 7.28 (7.31-7.41)
[2016-12-31 07:09] LABS: WHITE BLOOD COUNT 0.8 x10^3/uL (4.8-10.8)
[2016-12-31 07:24] LABS: BAND NEUTROPHILS % (MANUAL) 6 %; LYMPHOCYTES % (MANUAL) 52 %; NEUTROPHILS % (MANUAL) 27 %; TOTAL CELLS COUNTED 33
[2016-12-31 07:25] LABS: PLATELET ESTIMATE, MANUAL DECREASED (<130,000) (NORMAL); PLATELET MORPHOLOGY NORMAL APPEARANCE (NORMAL)
[2016-12-31 07:26] LABS: NP AUTO DIFFERENTIAL? YES; NP MAN DIFFERENTIAL? NO
[2016-12-31] MEDS ORDERED: METOPROLOL TARTRATE 50 MG TABLET PO SCH ×2 (07:54→21:00)
[2016-12-31] MEDS ORDERED: DIGOXIN 500 MCG/2 ML AMP IVP ONE (08:25)
[2016-12-31] MEDS: DIGOXIN 125 MCG TABLET PO SCH (09:27)
[2016-12-31] MEDS: LISINOPRIL 5 MG TABLET PO SCH (09:27)
[2016-12-31] MEDS: POLYETHYLENE GLYCOL 3350 17 GM PACKET PO SCH (09:29)
[2016-12-31] MEDS: NEUTRA-PHOS 250 MG TABLET PO SCH ×2 (11:24→14:42)
[2016-12-31] MEDS ORDERED: diltiaZEM INJ 5 MG/ML VIAL IVP ONE (13:15)
[2016-12-31] MEDS: FUROSEMIDE 20 MG/2 ML VIAL IVP ONE ×2 (14:28→18:52)
--- NOTE | 2016-12-31 15:06 | XRAY Preliminary Report ---
Exam: XR Chest 1 View IMPRESSION: Developing infiltrate seen in the right mid/upper lung and addition to the lung bases, in a possible pulmonary edema pattern. Developing small bilateral effusions. [facility] SITE ID: [id number]
--- NOTE | 2016-12-31 15:09 | XRAY Report ---
EXAM: CHEST RADIOGRAPHY EXAM DATE: 12/31/2016 02:40 PM. CLINICAL HISTORY: Hypoxia, tachycardia, respiratory distress. COMPARISON: Chest CT from 12/29/2016. TECHNIQUE: 1 view. FINDINGS: Lungs/Pleura: There are developing infiltrates seen in the right mid/upper lung, in addition to the l blake bases. Possible pulmonary edema pattern. Small bilateral effusions seen. Mediastinum: Within exam limitations, cardiomediastinal contour is normal. Port-A-Cath catheter is in place, terminating in the distal SVC. Other: None. IMPRESSION: Developing infiltrate seen in the right mid/upper lung and addition to the lung bases, in a possible pulmonary edema pattern. Developing small bilateral effusions. [facility] Referring Provider Line: [phone] SITE ID: [id number]
[2016-12-31] MEDS: DIGOXIN 500 MCG/2 ML AMP IVP SCH (16:45)
--- NOTE | 2016-12-31 17:27 | PROVIDER PROGRESS NOTE ---
Assessment/Plan - Problem List (1) Septic shock Assessment/Plan: Patient presented to the ER for a platelet transfusion but while in the ER she spiked a fever of 38.3 and was neutropenic with a ANC of 100 Work up showed possible pneumonia on CT chest Once patient arrived on floor she became hypotensive with BP down to 70/45 and tachycardic despite several liters of IVF Patient was then transferred to ICU and placed on a dobutamine drip Patients lactic acid was elevated to 8.4 Other possible source is infection of the port with bacteremia but port does not appear infected Off dopamine since yesterday with stable BPs No more fevers Blood cx negative Continue IV Vanco and Cefepime day 2 Lactic acid now normal Echo to look for possible cardiogenic shock as patient has elevated troponin Resolved (2) Atrial fibrillation with rapid ventricular rate Assessment/Plan: Patient went into a fib with rvr last night with HR in the 160s up to 180s this am Patient given IV metoprolol overnight Restarted on PO metoprolol yesterday Started a digoxin load this am Patient became hypoxic, tachypnic and had respiratory distress this afternoon likely secondary to pulmonary edema due to rapid a fib in conjunction with her systolic HF with reduced EF Patient give lasix and improved Patient given Dilt 20 mg IV and HR improved Will continue Dig load IV and start PO dig in am and continue PO metoprolol which was increased to 50 mg this am Monitor closely on tele will consider dilt drip if HR goes back up and will continue to titrate PO metoprolol Tele monitoring (3) Systolic heart failure with exacerbation Qualifiers: Heart failure chronicity: unspecified heart failure chronicity Qualified Code(s): I50.20 - Unspecified systolic (congestive) heart failure Assessment/Plan: Echo shows EF of 25% which appears acute normal EF in 2015 Patient also with elevated Trop this could be secondary to stress from current infection or shock to the myocardium vs myocardial ischemia from [place] which is unlikely given lack of chest pain or EKG changes Today patient went into CHF exacerbation likely secondary to rapid a fib with HR in the 160s to 180s despite IV metoprolol and digoxin IV Chest xray showed pulmonary edema Patient given IV lasix with some improvement Will continue to monitor as patient may need more lasix tonight Repeat CXR in the morning monitor BNP daily Strict I and O Tele monitoring Discontinue IVFs (4) Neutropenic fever Assessment/Plan: Patient presented with ANC of 100 as she is on chemo for recurrence of small cell lung ca and was found to have fever in ER up to 38.3 Patient went into septic shock and admitted to ICU on a dopamine drip Source appears to be pneumonia On IV vanco and cefepime day 2 No fevers last 24 hours ANC improved to 300 this am Improving (5) HCAP (healthcare-associated pneumonia) Assessment/Plan: Neutropenic fever with septic shock likely secondary to HCAP as patient is on chemotherapy and CT chest shows rounded densities with associated infiltrative density which could be secondary to infectious process Patient is on 3 L of O2 but developed pulmonary edema with a fib rvr and required lasix Continue IV vanco and cefepime day 2 ANC improved to 300 no fevers last 24 hours Blood cx negative Continue supplemental O2 Monitor closely (6) Elevated troponin Assessment/Plan: Troponin elevated at 0.78 This is most likely secondary to septic shock with lactic acid also being 8.4 However Echo shows EF of 25% which is huge decline from past Echo in 2015 with 50% There is global hypokinesis without regional wall motion abnormalities Patient will need cardiology evaluation but currently is too sick to be evaluated Continue lipitor, metoprolol and lisinopril Patient cannot get ASA as Plt count is only 12 No heparin as patients plts are 12K too high of a risk of bleeding Troponin trended down to 0.43 Will talk to patients staffing assistant Dr Mahajan prior to discharge (7) Pancytopenia Assessment/Plan: Secondary to chemotherapy Patients neutropenic with ANC up to 300, anemic with Hb down 8.2 and thrombocytopenic with Plt count of 12 Patient presented with plt count of 10 and received 6 pack Plt transfusion Monitor CBC daily Transfuse if hb less than 7 plts less than 10 or bleeding (8) Small cell lung cancer Qualifiers: Laterality: unspecified laterality Qualified Code(s): C34.90 - Malignant neoplasm of unspecified part of unspecified bronchus or lung Assessment/Plan: Recurrent Small Cell Lung Ca On chemo Pancytopenic Has a port Will need to hold off on chemo till she is over current infection (9) Hypokalemia Assessment/Plan: Resolved (10) Hypophosphatemia Assessment/Plan: Resolved (11) Hypomagnesemia Assessment/Plan: Resolved (11) Hypocalcemia Assessment/Plan: Ionized calcium 1.11 Replace with IV calcium - Current Meds Current Meds: Current Medications Generic Name Dose Route Start Last Admin Trade Name Daltonq PRN Reason Stop Dose Admin Atorvastatin Calcium 40 mg 12/30/16 21:00 12/30/16 20:51 Lipitor PO 40 mg QPM HENRIETTA Administration Digoxin 100 mcg 12/31/16 17:00 12/31/16 16:45 Lanoxin Inj IVP 01/01/17 01:01 100 mcg Q8H HENRIETTA Administration Digoxin 125 mcg 12/31/16 09:00 12/31/16 09:27 Lanoxin PO 125 mcg DAILY HENRIETTA Administration Sodium Chloride 1,000 mls @ 100 mls/hr 12/29/16 22:00 12/31/16 13:39 Normal Saline 0.9% IV 100 mls/hr .Q10H HENRIETTA Administration Cefepime HCl 1 gm/ Sodium 100 mls @ 200 mls/hr 12/30/16 22:00 12/30/16 22:42 Chloride IV 200 mls/hr Q24H HENRIETTA Administration Vancomycin HCl 500 mg/ Sodium 100 mls @ 100 mls/hr 12/31/16 04:00 12/31/16 04: 09 Chloride IV 100 mls/hr Q36H HENRIETTA Administration Dopamine HCl/Dextrose 500 mls @ 2.753 mls/hr 12/30/16 03:00 12/30/16 08:30 Dopamine IV 0 mcg/kg/min .Q72H HENRIETTA Titration Protocol 2 MCG/KG/MIN Lisinopril 5 mg 12/31/16 09:00 12/31/16 09:27 Zestril PO 5 mg DAILY HENRIETTA Administration Loratadine 10 mg 12/30/16 21:00 12/30/16 20:51 Claritin PO 10 mg QPM HENRIETTA Administration Metoprolol Tartrate 5 mg 12/31/16 01:51 12/31/16 10:50 Lopressor Inj IVP 5 mg BID PRN Administration HR >120 Metoprolol Tartrate 50 mg 12/31/16 07:54 12/31/16 09:29 Lopressor PO 50 mg BID HENRIETTA Administration Polyethylene Glycol 17 gm 12/30/16 09:00 12/31/16 09:29 Miralax PO Not Given DAILY HENRIETTA Sodium Chloride 10 ml 12/29/16 22:00 12/31/16 16:50 Normal Saline Flush 0.9% IVP 10 ml Q8HR HENRIETTA Administration Sodium Chloride 10 ml 12/29/16 22:00 12/30/16 20:52 Normal Saline Flush 0.9% IVP 30 ml PRN PRN Administration NEEDED PER PROVIDER ORDERS - Lab Result Lab results reviewed: Yes Fish Bone Diagrams: 12/31/16 05:12 12/31/16 05:12 - EKG Results EKG Interpreted Independently: Yes - Diagnostic Imaging Results Diagnostic Imaging Results: Final report reviewed - Additional Planning Condition/Complexity: Critical My Orders: My Active Orders 12/30/16 21:00 Atorvastatin [Lipitor] 40 mg PO QPM 12/31/16 07:54 Metoprolol Tartrate [Lopressor] 50 mg PO BID 12/31/16 09:00 Digoxin [Lanoxin] 125 mcg PO DAILY Lisinopril [Zestril] 5 mg PO DAILY 12/31/16 13:00 Dextrose 5% [D5w] 100 ml [id number] INJ [Cardizem Inj] 125 mg IV 5 mg/hr 12/31/16 17:00 Digoxin Inj [Lanoxin Inj] 100 mcg IVP Q8H 01/01/17 05:00 DIGOXIN [CHEM] DAILYLAB 01/02/17 05:00 DIGOXIN [CHEM] DAILYLAB 01/03/17 03:30 VANCOMYCIN TROUGH [CHEM] Timed 01/03/17 05:00 DIGOXIN [CHEM] DAILYLAB 01/04/17 05:00 DIGOXIN [CHEM] DAILYLAB Plan Discussed with:: Patient, Family Time Spent: Greater than 60 minutes Subjective - Subjective Patient Reports: Other (Patient always states she is feeling well. She did get very short of breath and had respiratory distress when she got up in the afternoon. She denies any chest pain or cough. She denies any fevers. She has poor appetite but eating as much as she can.) Nursing Reports: Shortness of Breath Objective Vital Signs: Vital Signs - 24 hr 12/30/16 12/30/16 12/30/16 18:00 19:11 20:05 Temperature 36.4 C L Heart Rate Heart Rate [ 90 105 H 98 Monitoring electrodes] Respiratory 17 21 20 Rate Blood Pressure Blood Pressure 106/74 118/78 102/89 H [Right Brachial artery] O2 Saturation 93 96 97 12/30/16 12/30/16 12/30/16 20:47 21:14 22:04 Temperature 36.5 C Heart Rate Heart Rate [ 121 H 101 H Monitoring electrodes] Respiratory 20 21 Rate Blood Pressure 117/100 H Blood Pressure 117/100 H 118/91 H [Right Brachial artery] O2 Saturation 97 98 12/30/16 12/30/16 12/31/16 23:08 23:54 01:00 Temperature 36.6 C Heart Rate Heart Rate [ 113 H 107 H 131 H Monitoring electrodes] Respiratory 21 19 18 Rate Blood Pressure Blood Pressure 122/78 119/73 131/78 H [Right Brachial artery] O2 Saturation 97 98 97 12/31/16 12/31/16 12/31/16 01:59 02:00 02:29 Temperature Heart Rate Heart Rate [ 155 H Monitoring electrodes] Respiratory 20 Rate Blood Pressure 115/91 H 126/88 H Blood Pressure 115/91 H [Right Brachial artery] O2 Saturation 97 12/31/16 12/31/16 12/31/16 03:00 04:00 05:00 Temperature 36.7 C Heart Rate Heart Rate [ 116 H 127 H 126 H Monitoring electrodes] Respiratory 16 18 20 Rate Blood Pressure Blood Pressure 116/78 121/86 H 131/99 H [Right Brachial artery] O2 Saturation 98 97 96 12/31/16 12/31/16 12/31/16 06:00 06:57 07:29 Temperature 37 C Heart Rate Heart Rate [ 132 H 128 H 163 H Monitoring electrodes] Respiratory 20 22 20 Rate Blood Pressure Blood Pressure 119/85 H 120/74 [Right Brachial artery] O2 Saturation 97 98 92 12/31/16 12/31/16 12/31/16 07:32 07:38 07:45 Temperature 37.4 C Heart Rate Heart Rate [ 165 H 153 H Monitoring electrodes] Respiratory 25 H 20 Rate Blood Pressure Blood Pressure 134/84 H 134/84 H 133/81 H [Right Brachial artery] O2 Saturation 97 94 96 12/31/16 12/31/16 12/31/16 07:47 07:50 07:55 Temperature Heart Rate Heart Rate [ 144 H 130 H Monitoring electrodes] Respiratory 22 20 Rate Blood Pressure 133/81 H Blood Pressure 121/79 121/73 [Right Brachial artery] O2 Saturation 98 97 12/31/16 12/31/16 12/31/16 08:00 08:17 08:20 Temperature Heart Rate 128 H Heart Rate [ 121 H Monitoring electrodes] Respiratory 20 Rate Blood Pressure 110/73 Blood Pressure 114/101 H [Right Brachial artery] O2 Saturation 97 12/31/16 12/31/16 12/31/16 08:58 09:29 09:57 Temperature Heart Rate Heart Rate [ 144 H 144 H Monitoring electrodes] Respiratory 22 22 Rate Blood Pressure 130/79 Blood Pressure 123/75 131/85 H [Right Brachial artery] O2 Saturation 99 98 12/31/16 12/31/16 12/31/16 10:50 10:51 11:20 Temperature 37.0 C Heart Rate Heart Rate [ 126 H Monitoring electrodes] Respiratory 23 Rate Blood Pressure 119/80 124/54 L Blood Pressure 119/80 [Right Brachial artery] O2 Saturation 96 12/31/16 12/31/16 12/31/16 11:51 12:00 13:00 Temperature Heart Rate Heart Rate [ 121 H 110 H 131 H Monitoring electrodes] Respiratory 23 23 20 Rate Blood Pressure Blood Pressure 122/73 116/96 H 129/74 [Right Brachial artery] O2 Saturation 97 98 98 12/31/16 12/31/16 12/31/16 13:07 13:18 14:00 Temperature Heart Rate Heart Rate [ 67 70 Monitoring electrodes] Respiratory 29 H 27 H Rate Blood Pressure 127/88 H Blood Pressure 113/54 L 144/55 H [Right Brachial artery] O2 Saturation 93 93 12/31/16 12/31/16 12/31/16 15:00 16:00 17:00 Temperature 37.4 C 36.7 C Heart Rate Heart Rate [ 83 103 H 105 H Monitoring electrodes] Respiratory 25 H 25 H 23 Rate Blood Pressure Blood Pressure 135/66 H 119/73 142/73 H [Right Brachial artery] O2 Saturation 93 93 95 12/31/16 17:02 Temperature Heart Rate Heart Rate [ 95 Monitoring electrodes] Respiratory 25 H Rate Blood Pressure Blood Pressure 142/73 H [Right Brachial artery] O2 Saturation 96 Oxygen O2 Source Nasal cannula I&O (Last 24 Hrs): Intake and Output Totals x24h 12/29/16 12/30/16 12/31/16 23:59 23:59 23:59 Intake Total 500 3725 2122 Output Total 1100 1891 Balance 500 2625 231 General: Alert, Oriented x3, Cooperative, Moderate distress (tachypnic, respiratory distress), Other (Elderly, frail, cachectic with alopecia) HEENT: Atraumatic, PERRLA, EOMI, Mucous membr. moist/pink Neck: Supple, No thyromegaly, +2 carotid pulse wo bruit, No LAD, Other ( Positive JVD) Lymphatic: no adenopathy Neuro: Alert, Non Focal, CN 2-12 Grossly Intact, Oriented Times 3 Cardiovascular: No murmurs, Other (Irregular and tachycardic) Respiratory: Rales (BIlateral up 1/3 of the lung), Rhonchi (Right lung) Abdomen: Normal bowel sounds, Soft, No tenderness, No hepatospenomegaly Extremities: No clubbing, No cyanosis, Normal pulses, Other (BIlateral LE edema) Skin: No rashes, No breakdown - Results Results: Laboratory Results WBC 0.8 x10^3/uL (4.8-10.8) L* 12/31/16 05:12 RBC 2.43 10^6/uL (4.20-5.40) L 12/31/16 05:12 Hgb 8.2 g/dL (12.0-16.0) L 12/31/16 05:12 Hct 25.0 % (37.0-47.0) L 12/31/16 05:12 MCV 103.0 fL (81.0-99.0) H 12/31/16 05:12 MCH 33.6 pg (27.0-31.0) H 12/31/16 05:12 MCHC 32.6 g/dL (32.0-36.0) 12/31/16 05:12 RDW 14.3 % (12.0-15.0) 12/31/16 05:12 Plt Count 12 10^3/uL (130-450) L* 12/31/16 05:12 MPV 9.1 fL (7.9-10.8) 12/31/16 05:12 Neut # P[employer]TE[employer]CE [employer] 12/31/16 05:12 Lymph # Not Reportable 12/31/16 05:12 [place] # Not Reportable 12/31/16 05:12 Eos # Not Reportable 12/31/16 05:12 Baso # Not Reportable 12/31/16 05:12 Absolute Nucleated RBC Not Reportable 12/31/16 05:12 Total Counted 33 12/31/16 05:12 Band Neuts % (Manual) 6 % (0-10) 12/31/16 05:12 Reactive Lymphs % (Man) 9 % 12/31/16 05:12 Neutrophils # (Manual) 0.3 10^3/uL (1.5-6.6) L* 12/31/16 05:12 Lymphocytes # (Manual) 0.5 10^3/uL (1.5-3.5) L 12/31/16 05:12 Monocytes # (Manual) 0.0 10^3/uL (0.0-1.0) 12/31/16 05:12 Nucleated RBCs Not Reportable 12/31/16 05:12 Differential Comment MANUAL DIFFERENTIAL 12/31/16 05:12 Manual Slide Review Indicated 12/30/16 08: Platelet Estimate DECREASED (<130,000) (NORMAL) 12/31/16 05:12 Platelet Morphology NORMAL APPEARANCE (NORMAL) 12/31/16 05:12 RBC Morph Micro Appear 2+ ANISOCYTOSIS (NORMAL) 1+ MACROCYTOSIS (NORMAL) 12/30/16 08:17 RBC Morph Micro Appear 1+ MACROCYTOSIS (NORMAL) 12/31/16 05:12 VBG pH 7.280 (7.31-7.41) L 12/31/16 05:12 Ionized Calcium 1.11 mmol/L (1.15-1.33) L 12/31/16 05:12 Sodium 139 mmol/L (135-145) 12/31/16 05:12 Potassium 4.0 mmol/L (3.5-5.0) 12/31/16 05:12 Chloride 114 mmol/L (101-111) H 12/31/16 05:12 Carbon Dioxide 18 mmol/L (21-32) L 12/31/16 05:12 Anion Gap 7.0 (6-13) 12/31/16 05:12 BUN 18 mg/dL (6-20) 12/31/16 05:12 Creatinine 0.6 mg/dL (0.4-1.0) 12/31/16 05:12 Estimated GFR (MDRD) 97 (>89) 12/31/16 05:12 Glucose 111 mg/dL (70-100) H 12/31/16 05:12 Lactic Acid 1.9 mmol/L (0.5-2.2) 12/30/16 08:17 Calcium 7.6 mg/dL (8.5-10.3) L 12/31/16 05:12 Ionized Calcium YES 12/31/16 05:12 Phosphorus 2.5 mg/dL (2.5-4.6) 12/31/16 05:12 Magnesium 2.0 mg/dL (1.7-2.8) 12/31/16 05:12 Total Bilirubin 0.4 mg/dL (0.2-1.0) 12/29/16 13:58 AST 20 IU/L (10-42) 12/29/16 13:58 ALT 13 IU/L (10-60) 12/29/16 13:58 Alkaline Phosphatase 63 IU/L (42-121) 12/29/16 13:58 Troponin I 0.43 ng/mL (<0.49) 12/30/16 20:45 Total Protein 6.4 g/dL (6.7-8.2) L 12/29/16 13:58 Albumin 2.6 g/dL (3.2-5.5) L 12/31/16 05:12 Globulin 3.3 g/dL (2.1-4.2) 12/29/16 13:58 Albumin/Globulin Ratio 0.9 (1.0-2.2) L 12/29/16 13:58 Lipase 17 U/L (22-51) L 12/29/16 13:58 Urine Color YELLOW 12/30/16 02:10 Urine Clarity CLEAR (CLEAR) 12/30/16 02:10 Urine pH 5.5 PH (5.0-7.5) 12/30/16 02:10 Ur Specific Cable <=1.005 (1.002-1.030) 12/30/16 02:10 Urine Protein NEGATIVE mg/dL (NEGATIVE) 12/30/16 02:10 Urine Glucose (UA) NEGATIVE mg/dL (NEGATIVE) 12/30/16 02:10 Urine Ketones NEGATIVE mg/dL (NEGATIVE) 12/30/16 02:10 Urine Occult Blood SMALL (NEGATIVE) H 12/30/16 02:10 Urine Nitrite NEGATIVE (NEGATIVE) 12/30/16 02:10 Urine Bilirubin NEGATIVE (NEGATIVE) 12/30/16 02:10 Urine Urobilinogen 0.2 (NORMAL) E.U./dL (NORMAL) 12/30/16 02:10 Ur Leukocyte Esterase NEGATIVE (NEGATIVE) 12/30/16 02:10 Urine RBC 0-5 /HPF (0-5) 12/30/16 02:10 Urine WBC 0-3 /HPF (0-5) 12/30/16 02:10 Ur Squamous Epith Cells FEW Squamous (<= Few) 12/30/16 02:10 Urine Bacteria Few /HPF (None Seen) 12/30/16 02:10 Ur Microscopic Review INDICATED 12/29/16 16:40 Urine Culture Comments NOT INDICATED 12/30/16 02:10 Last Dose Date UNK 12/29/16 22:02 Last Dose Time UNK 12/29/16 22:02 Digoxin < 0.2 ng/mL 12/29/16 22:02 Blood Type O NEGATIVE 12/29/16 14:19 - Procedures Procedures: Procedures INSERTION OF TOTALLY IMPLANTABLE VASC ACCESS DEVIC (05/21/13) PACKED CELL TRANSFUSION (01/10/15) PARTIAL HIP REPLACEMENT (01/10/15) REPLACEMENT OF LEFT LENS WITH SYNTH SUB, PERC APPROACH (08/12/15) REPLACEMENT OF RIGHT LENS WITH SYNTH SUB, PERC APPROACH (07/22/15)
[2016-12-31] MEDS: diltiaZEM INJ 125 MG in DEXTROSE 5% 100 ML IV SCH (18:49)
[2016-12-31] MEDS: ATORVASTATIN 40 MG TABLET PO SCH (21:02)
[2016-12-31] MEDS: LORATADINE 10 MG TABLET PO SCH (21:02)
[2016-12-31] MEDS: CEFEPIME 1 GM in SODIUM CHLORIDE 0.9% MINIBAG 100 ML IV SCH (22:12)
[2017-01-01] MEDS ORDERED: DIGOXIN 500 MCG/2 ML AMP IVP SCH (01:00)
[2017-01-01] MEDS: DIGOXIN 500 MCG/2 ML AMP IVP SCH (01:08)
[2017-01-01] MEDS: SODIUM CHLORIDE FLUSH 0.9% 10 ML SYRINGE IVP PRN ×4 (01:09→21:12)
[2017-01-01] MEDS: SODIUM CHLORIDE FLUSH 0.9% 10 ML SYRINGE IVP SCH ×3 (05:30→21:12)
[2017-01-01 06:43] LABS: BASOPHILS % (AUTO) 0.2 %; EOSINOPHILS % (AUTO) 0.5 %; HCT - HEMATOCRIT 23.7 % (37.0-47.0); HGB - HEMOGLOBIN 7.9 g/dL (12.0-16.0); LYMPHOCYTES % (AUTO) 36.2 %; MEAN CORPUSCULAR HEMOGLOBIN 34.1 pg (27.0-31.0); MEAN CORPUSCULAR HGB CONC 33.4 g/dL (32.0-36.0); MEAN CORPUSCULAR VOLUME 102.1 fL (81.0-99.0); MEAN PLATELET VOLUME 8.4 fL (7.9-10.8); MONOCYTES % (AUTO) 22.4 %; NEUTROPHILS % (AUTO) 40.7 %; RED BLOOD COUNT 2.32 10^6/uL (4.20-5.40); RED CELL DISTRIBUTION WIDTH 14.2 % (12.0-15.0); UNCORRECTED WHITE BLOOD COUNT 1.4 x10^3/uL
[2017-01-01 06:51] LABS: CALCIUM 7.9 mg/dL (8.5-10.3)
[2017-01-01 06:53] LABS: CALCIUM 7.9 mg/dL (8.5-10.3); CREATININE 0.8 mg/dL (0.4-1.0); MAGNESIUM 1.5 mg/dL (1.7-2.8); PHOSPHORUS 2.6 mg/dL (2.5-4.6)
[2017-01-01 07:02] LABS: WHITE BLOOD COUNT 1.4 x10^3/uL (4.8-10.8)
[2017-01-01 07:07] LABS: CALCIUM, IONIZED 1.11 mmol/L (1.15-1.33); VBG PH 7.373 (7.31-7.41)
[2017-01-01 07:24] LABS: BAND NEUTROPHILS % (MANUAL) 8 %; LYMPHOCYTES % (MANUAL) 42 %; NEUTROPHILS % (MANUAL) 36 %; TOTAL CELLS COUNTED 50
[2017-01-01 07:25] LABS: PLATELET ESTIMATE, MANUAL DECREASED (<130,000) (NORMAL)
[2017-01-01 07:26] LABS: NP AUTO DIFFERENTIAL? YES; NP MAN DIFFERENTIAL? NO
[2017-01-01] MEDS ORDERED: POTASSIUM CHLORIDE 20 MEQ TABLET PO ONE (08:00)
[2017-01-01] MEDS ORDERED: MAGNESIUM SULFATE 2 GRAM 50 ML IV ONE ×2 (08:30→13:00)
[2017-01-01] MEDS: FUROSEMIDE 40 MG/4 ML VIAL IVP SCH ×2 (08:50→14:33)
[2017-01-01] MEDS: METOPROLOL TARTRATE 50 MG TABLET PO SCH ×2 (08:51→21:12)
[2017-01-01] MEDS: LISINOPRIL 5 MG TABLET PO SCH (08:52)
[2017-01-01] MEDS: DIGOXIN 125 MCG TABLET PO SCH (09:03)
--- NOTE | 2017-01-01 09:59 | XRAY Report ---
EXAM: CHEST RADIOGRAPHY EXAM DATE: 01/01/2017 09:00 AM. CLINICAL HISTORY: Pulmonary edema and pneumonia . COMPARISON: 12/31/2016. 12/29/2016. TECHNIQUE: 1 view. FINDINGS: Lungs/Pleura: The costophrenic angles are blunted. There are persistent opacities in the mid and lowe r right lung. No pneumothorax. There are chronic lung opacities. Mediastinum: Within exam limitations, cardiomediastinal contour is normal. There is atherosclerotic c alcification in the aortic arch. Other: Left chest port. IMPRESSION: 1. Persistent opacities in the right lung superimposed on chronic lung disease. 2. Suspect small bilateral pleural effusions. [facility] Referring Provider Line: [phone] SITE ID: [id number]
--- NOTE | 2017-01-01 12:25 | PROVIDER PROGRESS NOTE ---
Assessment/Plan - Problem List (1) Septic shock Assessment/Plan: Patient presented to the ER for a platelet transfusion but while in the ER she spiked a fever of 38.3 and was neutropenic with a ANC of 100 Work up showed possible pneumonia on CT chest Once patient arrived on floor she became hypotensive with BP down to 70/45 and tachycardic despite several liters of IVF Patient was then transferred to ICU and placed on a dobutamine drip Patients lactic acid was elevated to 8.4 Other possible source is infection of the port with bacteremia but port does not appear infected Off dopamine since yesterday with stable BPs No more fevers Blood cx negative Continue IV Vanco and Cefepime day 3 Lactic acid now normal Resolved (2) Atrial fibrillation with rapid ventricular rate Assessment/Plan: Patient went into a fib with rvr with HR in the 160s up to 180s yesterday morning Patient given IV metoprolol, IV dilt and started on digoxin load yesterday Restarted on PO metoprolol and titrated up on dose to 100 mg BID Patient became hypoxic, tachypnic and had respiratory distress yesterday likely secondary to pulmonary edema due to rapid a fib in conjunction with her systolic HF with reduced EF Patient given lasix and improved Dig level slightly elevated this am will start PO dig today and continue to monitor level may need to adjust PO dose tomorrow if still elevated Tele monitoring HR better controlled today Continue to adjust metoprolol and digoxin as needed (3) Systolic heart failure Qualifiers: Heart failure chronicity: unspecified heart failure chronicity Qualified Code(s): I50.20 - Unspecified systolic (congestive) heart failure Assessment/Plan: Echo shows EF of 25% which appears acute normal EF in 2014 Patient also with elevated Trop this could be secondary to stress from current infection or shock to the myocardium vs myocardial ischemia from [place] which is unlikely given lack of chest pain or EKG changes Yesterday patient went into CHF exacerbation likely secondary to rapid a fib with HR in the 160s to 180s not allowing for adequate filling of LV in setting of decreased LV function Chest xray showed pulmonary edema and continues to show bilateral opacities today Patient given IV lasix with improvement Will continue IV lasix 40 mg BID for 1-2 more days as we wean patient off O2 BNP elevated to 3704 today will continue to monitor daily Strict I and O Tele monitoring (4) Neutropenic fever Assessment/Plan: Patient presented with ANC of 100 as she is on chemo for recurrence of small cell lung ca and was found to have fever in ER up to 38.3 Patient went into septic shock and admitted to ICU on a dopamine drip Source appears to be pneumonia On IV vanco and cefepime day 3 No fevers last 48 hours ANC improved to 600 this am Improving Will change to PO abx if patient continues to be afebrile with ANC greater than 500 tomorrow (5) HCAP (healthcare-associated pneumonia) Assessment/Plan: Neutropenic fever with septic shock likely secondary to HCAP as patient is on chemotherapy and CT chest shows rounded densities with associated infiltrative density which could be secondary to infectious process Patient is on 3 L of O2 but developed pulmonary edema with a fib rvr and required lasix Continue IV vanco and cefepime day 3 ANC improved to 600 no fevers last 48 hours Blood cx negative Continue supplemental O2 Monitor closely (6) Elevated troponin Assessment/Plan: Troponin elevated at 0.78 This is most likely secondary to septic shock with lactic acid also being 8.4 However Echo shows EF of 25% which is huge decline from past Echo in 2015 with 50% There is global hypokinesis without regional wall motion abnormalities Patient will need cardiology evaluation but currently is too sick to be evaluated Continue lipitor, metoprolol and lisinopril Patient cannot get ASA as Plt count is only 12 No heparin as patients plts are 12K too high of a risk of bleeding Troponin trended down to 0.43 Will talk to patients turbine room attendant Dr Mahajan prior to discharge (7) Pancytopenia Assessment/Plan: Secondary to chemotherapy Patients neutropenic with ANC up to 600, anemic with Hb down 7.9 and thrombocytopenic with Plt count of 17 Patient presented with plt count of 10 and received 6 pack Plt transfusion Monitor CBC daily Transfuse if hb less than 7 plts less than 10 or bleeding (8) Small cell lung cancer Qualifiers: Laterality: unspecified laterality Qualified Code(s): C34.90 - Malignant neoplasm of unspecified part of unspecified bronchus or lung Assessment/Plan: Recurrent Small Cell Lung Ca On chemo Pancytopenic Has a port Will need to hold off on chemo till she is over current infection (9) Hypokalemia Assessment/Plan: Resolved (10) Hypophosphatemia Assessment/Plan: Resolved (11) Hypomagnesemia Assessment/Plan: Mg 1.5 today Replace (12) Hypocalcemia Assessment/Plan: Ionized calcium 1.11 Replace with IV calcium - Current Meds Current Meds: Current Medications Generic Name Dose Route Start Last Admin Trade Name Daltonq PRN Reason Stop Dose Admin Atorvastatin Calcium 40 mg 12/30/16 21:00 12/31/16 21:02 Lipitor PO 40 mg QPM HENRIETTA Administration Digoxin 125 mcg 12/31/16 09:00 01/01/17 09:03 Lanoxin PO 125 mcg DAILY HENRIETTA Administration Furosemide 40 mg 01/01/17 08:00 01/01/17 08:50 Lasix Inj 40 Mg Vial IVP 40 mg BIDDIURETIC HENRIETTA Administration Heparin Sodium (Beef Lung) 30 - 50 unit 12/31/16 19:07 12/31/16 19:15 IVP 01/30/17 19:08 50 unit ONCE PRN Administration Port Protocol (<24 hours) Cefepime HCl 1 gm/ Sodium 100 mls @ 200 mls/hr 12/30/16 22:00 12/31/16 22:12 Chloride IV 200 mls/hr Q24H HENRIETTA Administration Vancomycin HCl 500 mg/ Sodium 100 mls @ 100 mls/hr 12/31/16 04:00 12/31/16 04: 09 Chloride IV 100 mls/hr Q36H HENRIETTA Administration Dopamine HCl/Dextrose 500 mls @ 2.753 mls/hr 12/30/16 03:00 12/30/16 08:30 Dopamine IV 0 mcg/kg/min .Q72H HENRIETTA Titration Protocol 2 MCG/KG/MIN Diltiazem HCl 125 mg/ Dextrose 125 mls @ 5 mls/hr 12/31/16 13:00 12/31/16 18:49 IV Not Given .Q25H HENRIETTA Protocol 5 MG/HR Lisinopril 5 mg 12/31/16 09:00 01/01/17 08:52 Zestril PO 5 mg DAILY HENRIETTA Administration Loratadine 10 mg 12/30/16 21:00 12/31/16 21:02 Claritin PO 10 mg QPM HENRIETTA Administration Metoprolol Tartrate 5 mg 12/31/16 01:51 12/31/16 10:50 Lopressor Inj IVP 5 mg BID PRN Administration HR >120 Metoprolol Tartrate 100 mg 01/01/17 08:15 01/01/17 08:51 Lopressor PO 100 mg BID HENRIETTA Administration Polyethylene Glycol 17 gm 12/30/16 09:00 12/31/16 09:29 Miralax PO Not Given DAILY HENRIETTA Sodium Chloride 10 ml 12/29/16 22:00 01/01/17 05:30 Normal Saline Flush 0.9% IVP 10 ml Q8HR HENRIETTA Administration Sodium Chloride 10 ml 12/29/16 22:00 01/01/17 08:52 Normal Saline Flush 0.9% IVP 10 ml PRN PRN Administration NEEDED PER PROVIDER ORDERS - Lab Result Lab results reviewed: Yes Fish Bone Diagrams: 01/01/17 05:28 01/01/17 05:28 - EKG Results EKG Interpreted Independently: Yes - Diagnostic Imaging Results Diagnostic Imaging Results: Final report reviewed - Additional Planning Condition/Complexity: Improved My Orders: My Active Orders 12/31/16 13:00 Dextrose 5% [D5w] 100 ml diltiaZEM INJ [Cardizem Inj] 125 mg IV 5 mg/hr 01/01/17 Evaluate and Treat PT [PT] Routine 01/01/17 08:00 FUROSEMIDE INJ 40mg VIAL [LASIX INJ 40 mg VIAL] 40 mg IVP BIDDIURETIC 01/01/17 08:15 Metoprolol Tartrate [Lopressor] 100 mg PO BID 01/02/17 05:00 BNP - B-NATRIURETIC PEPTIDE [IAI] DAILYLAB DIGOXIN [CHEM] DAILYLAB 01/02/17 08:00 Potassium Chloride [K-Dur] 40 meq PO DAILYWM 01/03/17 03:30 VANCOMYCIN TROUGH [CHEM] Timed 01/03/17 05:00 BNP - B-NATRIURETIC PEPTIDE [IAI] DAILYLAB DIGOXIN [CHEM] DAILYLAB 01/04/17 05:00 BNP - B-NATRIURETIC PEPTIDE [IAI] DAILYLAB DIGOXIN [CHEM] DAILYLAB 01/05/17 05:00 BNP - B-NATRIURETIC PEPTIDE [IAI] DAILYLAB Consult/Specialty: PT Plan Discussed with:: Patient, Family Time Spent: 31-60 minutes Subjective - Subjective Patient Reports: Feeling Better (She feels much better than yesterday. She states that her shortness of breath is improved. She denies any fevers. She has a better appetite. She denies any chest pain or cough. She is asking when she can go home. She still gets short of breath with exertion and is requiring 3L of oxygen.), Resting Comfortably Nursing Reports: No Complaints Objective Vital Signs: Vital Signs - 24 hr 12/31/16 12/31/16 12/31/16 13:00 13:07 13:18 Temperature Heart Rate [ 131 H 67 Monitoring electrodes] Respiratory 20 29 H Rate Blood Pressure 127/88 H Blood Pressure 129/74 113/54 L [Right Brachial artery] O2 Saturation 98 93 12/31/16 12/31/16 12/31/16 14:00 15:00 16:00 Temperature 37.4 C Heart Rate [ 70 83 103 H Monitoring electrodes] Respiratory 27 H 25 H 25 H Rate Blood Pressure Blood Pressure 144/55 H 135/66 H 119/73 [Right Brachial artery] O2 Saturation 93 93 93 12/31/16 12/31/16 12/31/16 17:00 17:02 18:06 Temperature 36.7 C Heart Rate [ 105 H 95 106 H Monitoring electrodes] Respiratory 23 25 H 24 Rate Blood Pressure Blood Pressure 142/73 H 142/73 H 138/81 H [Right Brachial artery] O2 Saturation 95 96 94 12/31/16 12/31/16 12/31/16 19:07 19:16 20:05 Temperature 37.2 C Heart Rate [ 104 H 112 H Monitoring electrodes] Respiratory 21 21 Rate Blood Pressure Blood Pressure 139/77 H 126/64 [Right Brachial artery] O2 Saturation 95 96 12/31/16 12/31/16 12/31/16 21:03 21:11 22:07 Temperature Heart Rate [ 94 98 Monitoring electrodes] Respiratory 22 16 Rate Blood Pressure 136/73 H Blood Pressure 136/73 H 139/72 H [Right Brachial artery] O2 Saturation 93 93 12/31/16 01/01/17 01/01/17 23:34 00:12 01:00 Temperature 36.8 C Heart Rate [ 80 85 103 H Monitoring electrodes] Respiratory 21 20 22 Rate Blood Pressure Blood Pressure 139/65 H 129/73 142/87 H [Right Brachial artery] O2 Saturation 93 93 94 01/01/17 01/01/17 01/01/17 02:00 03:00 04:00 Temperature 36.7 C Heart Rate [ 83 90 94 Monitoring electrodes] Respiratory 18 20 21 Rate Blood Pressure Blood Pressure 138/76 H 133/70 H 135/62 H [Right Brachial artery] O2 Saturation 93 94 93 08/01/01/17 01/01/17 05:00 05:59 07:00 Temperature Heart Rate [ 79 90 87 Monitoring electrodes] Respiratory 19 20 17 Rate Blood Pressure Blood Pressure 133/78 H 135/87 H 146/79 H [Right Brachial artery] O2 Saturation 94 94 93 01/01/17 01/01/17 01/01/17 07:55 08:00 08:51 Temperature Heart Rate [ 84 84 Monitoring electrodes] Respiratory 17 17 Rate Blood Pressure 125/67 Blood Pressure 132/74 H 122/75 [Right Brachial artery] O2 Saturation 91 L 93 01/01/17 01/01/17 01/01/17 09:00 10:00 11:00 Temperature 36.9 C Heart Rate [ 96 75 63 Monitoring electrodes] Respiratory 22 20 15 Rate Blood Pressure Blood Pressure 140/84 H 118/68 120/47 L [Right Brachial artery] O2 Saturation 100 92 93 01/01/17 11:55 Temperature 37.1 C Heart Rate [ 78 Monitoring electrodes] Respiratory 22 Rate Blood Pressure Blood Pressure 127/67 [Right Brachial artery] O2 Saturation 97 Oxygen O2 Source Nasal cannula I&O (Last 24 Hrs): Intake and Output Totals x24h 12/30/16 12/31/16 01/01/17 23:59 23:59 23:59 Intake Total 3725 2492 350 Output Total 1100 3276 0841 Balance 3762 -359 -1096 General: Alert, Oriented x3, Cooperative, No acute distress, Other (Elderly, cachectic female with alopecia) HEENT: Atraumatic, PERRLA, EOMI, Mucous membr. moist/pink Neck: Supple, No JVD, No thyromegaly, +2 carotid pulse wo bruit, No LAD Lymphatic: no adenopathy Neuro: Alert, Non Focal, CN 2-12 Grossly Intact, Oriented Times 3 Cardiovascular: Other (S3, irregular) Respiratory: Chest non-tender, No respiratory distress, Rales (Bilateral crackles slightly improved), Rhonchi (right lung) Abdomen: Normal bowel sounds, Soft, No tenderness Extremities: No clubbing, No cyanosis, No edema, Normal pulses Skin: No rashes, No breakdown - Results Results: Laboratory Results WBC 1.4 x10^3/uL (4.8-10.8) L* 01/01/17 05:28 RBC 2.32 10^6/uL (4.20-5.40) L 01/01/17 05:28 Hgb 7.9 g/dL (12.0-16.0) L 01/01/17 05:28 Hct 23.7 % (37.0-47.0) L 01/01/17 05:28 MCV 102.1 fL (81.0-99.0) H 01/01/17 05:28 MCH 34.1 pg (27.0-31.0) H 01/01/17 05:28 MCHC 33.4 g/dL (32.0-36.0) 01/01/17 05:28 RDW 14.2 % (12.0-15.0) 01/01/17 05:28 Plt Count 17 10^3/uL (130-450) L* 01/01/17 05:28 MPV 8.4 fL (7.9-10.8) 01/01/17 05:28 Neut # Not Reportable 01/01/17 05:28 Lymph # Not Reportable 01/01/17 05:28 [place] # Not Reportable 01/01/17 05:28 Eos # Not Reportable 01/01/17 05:28 Baso # Not Reportable 01/01/17 05:28 Absolute Nucleated RBC Not Reportable 01/01/17 05:28 Total Counted 50 01/01/17 05:28 Band Neuts % (Manual) 8 % (0-10) 01/01/17 05:28 Reactive Lymphs % (Man) 2 % 01/01/17 05:28 Neutrophils # (Manual) 0.6 10^3/uL (1.5-6.6) L 01/01/17 05:28 Lymphocytes # (Manual) 0.6 10^3/uL (1.5-3.5) L 01/01/17 05:28 Monocytes # (Manual) 0.2 10^3/uL (0.0-1.0) 01/01/17 05:28 Nucleated RBCs 2 % 01/01/17 05:28 Differential Comment MANUAL DIFFERENTIAL 01/01/17 05:28 Manual Slide Review Indicated 12/30/16 08:17 Platelet Estimate DECREASED (<130,000) (NORMAL) 01/01/17 05:28 Platelet Morphology NORMAL APPEARANCE (NORMAL) 12/31/16 05:12 RBC Morph Micro Appear 1+ MACROCYTOSIS (NORMAL) 12/31/16 05:12 RBC Morph Micro Appear 1+ MACROCYTOSIS (NORMAL) 01/01/17 05:28 VBG pH 7.373 (7.31-7.41) 01/01/17 05:28 Ionized Calcium 1.11 mmol/L (1.15-1.33) L 01/01/17 05:28 Sodium 138 mmol/L (135-145) 01/01/17 05:28 Potassium 3.0 mmol/L (3.5-5.0) L 01/01/17 05:28 Chloride 109 mmol/L (101-111) 01/01/17 05:28 Carbon Dioxide 21 mmol/L (21-32) 01/01/17 05:28 Anion Gap 8.0 (6-13) 01/01/17 05:28 BUN 18 mg/dL (6-20) 01/01/17 05:28 Creatinine 0.8 mg/dL (0.4-1.0) 01/01/17 05:28 Estimated GFR (MDRD) 69 (>89) L 01/01/17 05:28 Glucose 91 mg/dL (70-100) 01/01/17 05:28 Lactic Acid 1.9 mmol/L (0.5-2.2) 12/30/16 08: Calcium 7.9 mg/dL (8.5-10.3) L 01/01/17 05:28 Ionized Calcium YES 01/01/17 05:28 Phosphorus 2.6 mg/dL (2.5-4.6) 01/01/17 05:28 Magnesium 1.5 mg/dL (1.7-2.8) L 01/01/17 05:28 Total Bilirubin 0.4 mg/dL (0.2-1.0) 12/29/16 13:58 AST 20 IU/L (10-42) 12/29/16 13:58 ALT 13 IU/L (10-60) 12/29/16 13:58 Alkaline Phosphatase 63 IU/L (42-121) 12/29/16 13:58 Troponin I 0.43 ng/mL (<0.49) 12/30/16 20:45 B-Natriuretic Peptide 3704 pg/mL (5-100) H 01/01/17 05:28 Total Protein 6.4 g/dL (6.7-8.2) L 12/29/16 13:58 Albumin 2.6 g/dL (3.2-5.5) L 12/31/16 05:12 Globulin 3.3 g/dL (2.1-4.2) 12/29/16 13:58 Albumin/Globulin Ratio 0.9 (1.0-2.2) L 12/29/16 13:58 Lipase 17 U/L (22-51) L 12/29/16 13:58 Urine Color YELLOW 12/30/16 02:10 Urine Clarity CLEAR (CLEAR) 12/30/16 02:10 Urine pH 5.5 PH (5.0-7.5) 12/30/16 02:10 Ur Specific [place] <=1.005 (1.002-1.030) 12/30/16 02:10 Urine Protein NEGATIVE mg/dL (NEGATIVE) 12/30/16 02:10 Urine Glucose (UA) NEGATIVE mg/dL (NEGATIVE) 12/30/16 02:10 Urine Ketones NEGATIVE mg/dL (NEGATIVE) 12/30/16 02:10 Urine Occult Blood SMALL (NEGATIVE) H 12/30/16 02:10 Urine Nitrite NEGATIVE (NEGATIVE) 12/30/16 02:10 Urine Bilirubin NEGATIVE (NEGATIVE) 12/30/16 02:10 Urine Urobilinogen 0.2 (NORMAL) E.U./dL (NORMAL) 12/30/16 02:10 Ur Leukocyte Esterase NEGATIVE (NEGATIVE) 12/30/16 02:10 Urine RBC 0-5 /HPF (0-5) 12/30/16 02:10 Urine WBC 0-3 /HPF (0-5) 12/30/16 02:10 Ur Squamous Epith Cells FEW Squamous (<= Few) 12/30/16 02:10 Urine Bacteria Few /HPF (None Seen) 12/30/16 02:10 Ur Microscopic Review INDICATED 12/29/16 16:40 Urine Culture Comments NOT INDICATED 12/30/16 02:10 Last Dose Date 01/01/17 01/01/17 05:28 Last Dose Time 0108 01/01/17 05:28 Digoxin 2.8 ng/mL 01/01/17 05:28 Blood Type O NEGATIVE 12/29/16 14:19 - Procedures Procedures: Procedures INSERTION OF TOTALLY IMPLANTABLE VASC ACCESS DEVIC (05/21/13) PACKED CELL TRANSFUSION (01/10/15) PARTIAL HIP REPLACEMENT (01/10/15) REPLACEMENT OF LEFT LENS WITH SYNTH SUB, PERC APPROACH (08/12/15) REPLACEMENT OF RIGHT LENS WITH SYNTH SUB, PERC APPROACH (07/22/15)
[2017-01-01] MEDS ORDERED: CALCIUM GLUCONATE 2,000 MG in SODIUM CHLORIDE 0.9% 100ML 100 ML IV ONE (13:30)
[2017-01-01] MEDS: diltiaZEM INJ 125 MG in DEXTROSE 5% 100 ML IV SCH (14:15)
[2017-01-01] MEDS: POLYETHYLENE GLYCOL 3350 17 GM PACKET PO SCH (14:23)
[2017-01-01] MEDS: VANCOMYCIN INJ 500 MG in SODIUM CHLORIDE 0.9% MINIBAG 100 ML IV SCH (16:15)
[2017-01-01] MEDS: CEFEPIME 1 GM in SODIUM CHLORIDE 0.9% MINIBAG 100 ML IV SCH (21:11)
[2017-01-01] MEDS: LORATADINE 10 MG TABLET PO SCH (21:12)
[2017-01-01] MEDS: ATORVASTATIN 40 MG TABLET PO SCH (21:12)
[2017-01-02 04:30] LABS: BASOPHILS % (AUTO) 0.2 %; EOSINOPHILS % (AUTO) 0.5 %; HCT - HEMATOCRIT 24.7 % (37.0-47.0); HGB - HEMOGLOBIN 8.4 g/dL (12.0-16.0); LYMPHOCYTES % (AUTO) 19.8 %; MEAN CORPUSCULAR HEMOGLOBIN 33.9 pg (27.0-31.0); MEAN CORPUSCULAR HGB CONC 34.1 g/dL (32.0-36.0); MEAN CORPUSCULAR VOLUME 99.6 fL (81.0-99.0); MEAN PLATELET VOLUME 7.3 fL (7.9-10.8); NEUTROPHILS % (AUTO) 48.5 %; RED BLOOD COUNT 2.48 10^6/uL (4.20-5.40); RED CELL DISTRIBUTION WIDTH 14.1 % (12.0-15.0)
[2017-01-02] MEDS: DOPamine 800 MG/500 ML 500 ML IV SCH (04:32)
[2017-01-02 04:42] LABS: CALCIUM 7.8 mg/dL (8.5-10.3); MAGNESIUM 1.7 mg/dL (1.7-2.8)
[2017-01-02 04:49] LABS: CALCIUM, IONIZED 1.06 mmol/L (1.15-1.33); VBG PH 7.437 (7.31-7.41)
[2017-01-02 05:12] LABS: BAND NEUTROPHILS % (MANUAL) 6 %; LYMPHOCYTES % (MANUAL) 34 %; NEUTROPHILS % (MANUAL) 40 %; TOTAL CELLS COUNTED 50
[2017-01-02 05:13] LABS: NP AUTO DIFFERENTIAL? YES; NP MAN DIFFERENTIAL? NO; PLATELET ESTIMATE, MANUAL DECREASED (<130,000) (NORMAL); PLATELET MORPHOLOGY NORMAL APPEARANCE (NORMAL)
[2017-01-02] MEDS: FUROSEMIDE 40 MG/4 ML VIAL IVP SCH (06:21)
[2017-01-02] MEDS: SODIUM CHLORIDE FLUSH 0.9% 10 ML SYRINGE IVP PRN (06:21)
[2017-01-02] MEDS: SODIUM CHLORIDE FLUSH 0.9% 10 ML SYRINGE IVP SCH ×3 (06:21→20:32)
[2017-01-02 06:26] LABS: ALBUMIN/GLOBULIN RATIO 0.8 (1.0-2.2); BILIRUBIN,TOTAL 0.9 mg/dL (0.2-1.0); CREATININE 0.8 mg/dL (0.4-1.0); POTASSIUM 2.7 mmol/L (3.5-5.0); TOTAL PROTEIN 5.6 g/dL (6.7-8.2)
[2017-01-02] MEDS ORDERED: POTASSIUM CHLORIDE 20 MEQ TABLET PO SCH (08:00)
[2017-01-02] MEDS: MAGNESIUM OXIDE 400 MG TABLET PO SCH ×2 (08:22→14:01)
[2017-01-02] MEDS: POLYETHYLENE GLYCOL 3350 17 GM PACKET PO SCH (08:23)
[2017-01-02] MEDS: LISINOPRIL 5 MG TABLET PO SCH (09:54)
[2017-01-02] MEDS: DIGOXIN 125 MCG TABLET PO SCH (09:54)
[2017-01-02] MEDS: METOPROLOL TARTRATE 50 MG TABLET PO SCH ×2 (09:54→20:30)
[2017-01-02] MEDS: SODIUM CHLORIDE 0.9% 1,000 ML IV SCH (10:31)
[2017-01-02] MEDS: POTASSIUM CHLOR 10 MEQ/100 ML 100 ML IV SCH ×4 (11:45→15:00)
[2017-01-02] MEDS: POTASSIUM CHLORIDE 20 MEQ TABLET PO SCH ×2 (12:30→17:14)
--- NOTE | 2017-01-02 14:12 | PROVIDER PROGRESS NOTE ---
Assessment/Plan - Problem List (1) Septic shock Assessment/Plan: Patient presented to the ER for a platelet transfusion but while in the ER she spiked a fever of 38.3 and was neutropenic with a ANC of 100 Work up showed possible pneumonia on CT chest Once patient arrived on floor she became hypotensive with BP down to 70/45 and tachycardic despite several liters of IVF Patient was then transferred to ICU and placed on a dobutamine drip Patients lactic acid was elevated to 8.4 Other possible source is infection of the port with bacteremia but port does not appear infected Off dopamine since yesterday with stable BPs No more fevers Blood cx negative Continue IV Vanco and Cefepime day 4 with switch to PO levaquin at discharge to complete 7 days of treatment Lactic acid now normal Resolved (2) Atrial fibrillation with rapid ventricular rate Assessment/Plan: Patient went into a fib with rvr with HR in the 160s up to 180s on 12/31/16 morning Patient given IV metoprolol and given digoxin load Restarted on PO metoprolol and titrated up on dose to 100 mg BID Patient became hypoxic, tachypnic and had respiratory distress 12/31/16 likely secondary to pulmonary edema due to rapid a fib in conjunction with her systolic HF with reduced EF Patient given lasix and improved Dig level slightly low this am will on PO dig today and continue to monitor level may need to adjust PO dose Tele monitoring HR stable Continue to adjust metoprolol and digoxin as needed (3) Systolic heart failure Qualifiers: Heart failure chronicity: unspecified heart failure chronicity Qualified Code(s): I50.20 - Unspecified systolic (congestive) heart failure Assessment/Plan: Echo shows EF of 25% which appears acute normal EF in 2014 Patient also with elevated Trop this could be secondary to stress from current infection or shock to the myocardium vs myocardial ischemia from AR which is unlikely given lack of chest pain or EKG changes On 12/31/16 patient went into CHF exacerbation likely secondary to rapid a fib with HR in the 160s to 180s not allowing for adequate filling of LV in setting of decreased LV function Chest xray showed pulmonary edema and continues to show bilateral opacities today Patient given IV lasix with improvement Patient negative 4L yesterday BNP improved to 1786 from 3704 today will continue to monitor daily Change lasix to 40 mg IV daily Strict I and O Tele monitoring Transfer to Med/Surg Still on 2L of O2 wean down (4) Neutropenic fever Assessment/Plan: Patient presented with ANC of 100 as she is on chemo for recurrence of small cell lung ca and was found to have fever in ER up to 38.3 Patient went into septic shock and admitted to ICU on a dopamine drip Source appears to be pneumonia On IV vanco and cefepime day 4 No fevers last 72 hours ANC improved to 900 this am Improving Change to PO levaquin starting tomorrow (5) HCAP (healthcare-associated pneumonia) Assessment/Plan: Neutropenic fever with septic shock likely secondary to HCAP as patient is on chemotherapy and CT chest shows rounded densities with associated infiltrative density which could be secondary to infectious process Patient is on 2 L of O2 but developed pulmonary edema with a fib rvr and required lasix Continue IV vanco and cefepime day 4 switch to PO levaquin tomorrow ANC improved to 900 no fevers last 72 hours Blood cx negative Continue supplemental O2 wean down today Monitor closely (6) Elevated troponin Assessment/Plan: Troponin elevated at 0.78 This is most likely secondary to septic shock with lactic acid also being 8.4 However Echo shows EF of 25% which is huge decline from past Echo in 2015 with 50% There is global hypokinesis without regional wall motion abnormalities Patient will need cardiology evaluation but currently is too sick to be evaluated Continue lipitor, metoprolol and lisinopril Patient cannot get ASA as Plt count is only 12 No heparin as patients plts are 12K too high of a risk of bleeding Troponin trended down to 0.43 Patient will need to follow up with her senior program analyst Dr Mahajan (7) Pancytopenia Assessment/Plan: Secondary to chemotherapy Patients neutropenic with ANC up to 900, anemic with Hb up to 8.4 and thrombocytopenic with Plt count of 26 Patient presented with plt count of 10 and received 6 pack Plt transfusion Monitor CBC daily Transfuse if hb less than 7 plts less than 10 or bleeding (8) Small cell lung cancer Qualifiers: Laterality: unspecified laterality Qualified Code(s): C34.90 - Malignant neoplasm of unspecified part of unspecified bronchus or lung Assessment/Plan: Recurrent Small Cell Lung Ca On chemo Pancytopenic Has a port Will need to hold off on chemo till she is over current infection (9) Hypokalemia Assessment/Plan: K was 2.7 Give IV K and PO K TID (10) Hypophosphatemia Assessment/Plan: Resolved (11) Hypomagnesemia Assessment/Plan: Resolved (12) Hypocalcemia Assessment/Plan: Ionized calcium 1.06 Replace with IV calcium - Current Meds Current Meds: Current Medications Generic Name Dose Route Start Last Admin Trade Name Freq PRN Reason Stop Dose Admin Atorvastatin Calcium 40 mg 12/30/16 21:00 01/01/17 21:12 Lipitor PO 40 mg QPM HENRIETTA Administration Digoxin 125 mcg 12/31/16 09:00 01/02/17 09:54 Lanoxin PO 125 mcg DAILY HENRIETTA Administration Heparin Sodium (Beef Lung) 30 - 50 unit 12/31/16 19:07 12/31/16 19:15 IVP 01/30/17 19:08 50 unit ONCE PRN Administration Port Protocol (<24 hours) Cefepime HCl 1 gm/ Sodium 100 mls @ 200 mls/hr 12/30/16 22:00 01/01/17 21:11 Chloride IV 200 mls/hr Q24H HENRIETTA Administration Vancomycin HCl 500 mg/ Sodium 100 mls @ 100 mls/hr 12/31/16 04:00 01/01/17 16: 15 Chloride IV 100 mls/hr Q36H HENRIETTA Administration Dopamine HCl/Dextrose 500 mls @ 2.753 mls/hr 12/30/16 03:00 01/02/17 04:32 Dopamine IV Not Given .Q72H HENRIETTA Protocol 2 MCG/KG/MIN Potassium Chloride 100 mls @ 100 mls/hr 01/02/17 12:00 01/02/17 13:53 Potassium Chloride IV 01/02/17 15:59 100 mls/hr Q1H HENRIETTA Administration Lisinopril 5 mg 12/31/16 09:00 01/02/17 09:54 Zestril PO 5 mg DAILY HENRIETTA Administration Loratadine 10 mg 12/30/16 21:00 01/01/17 21:12 Claritin PO 10 mg QPM HENRIETTA Administration Magnesium Oxide 400 mg 01/02/17 08:00 01/02/17 08:22 Mag Ox PO 01/02/17 14:01 400 mg Q6H HENRIETTA Administration Protocol Metoprolol Tartrate 5 mg 12/31/16 01:51 12/31/16 10:50 Lopressor Inj IVP 5 mg BID PRN Administration HR >120 Metoprolol Tartrate 100 mg 01/01/17 08:15 01/02/17 09:54 Lopressor PO 100 mg BID HENRIETTA Administration Polyethylene Glycol 17 gm 12/30/16 09:00 01/02/17 08:23 Miralax PO 17 gm DAILY HENRIETTA Administration Potassium Chloride 40 meq 01/02/17 12:00 01/02/17 12:30 K-Dur PO 40 meq TIDWM HENRIETTA Administration Sodium Chloride 10 ml 12/29/16 22:00 01/02/17 11:45 Normal Saline Flush 0.9% IVP 10 ml Q8HR HENRIETTA Administration Sodium Chloride 10 ml 12/29/16 22:00 01/02/17 06:21 Normal Saline Flush 0.9% IVP 10 ml PRN PRN Administration NEEDED PER PROVIDER ORDERS - Lab Result Lab results reviewed: Yes Fish Bone Diagrams: 01/02/17 04:15 01/02/17 04:15 - Diagnostic Imaging Results Diagnostic Imaging Results: Final report reviewed - Additional Planning Condition/Complexity: Improved My Orders: My Active Orders 01/02/17 Home Health Referral [CONS] Routine Home Health Care [CAREMGT] Routine 01/02/17 08:00 Magnesium Oxide [Mag Ox] 400 mg PO Q6H 01/02/17 12:00 Potassium Chlor 10 Meq/100 ml [Potassium Chloride] 100 ml IV Q1H Potassium Chloride [K-Dur] 40 meq PO TIDWM 01/02/17 13:50 Admit \ Transfer \ Status [RC] ONCE 01/02/17 13:52 Daily Weight [RC] 0600 IO [RC] IOSHIFT Vital Signs [RC] Q4HR 01/03/17 03:30 VANCOMYCIN TROUGH [CHEM] Timed 01/03/17 05:00 BNP - B-NATRIURETIC PEPTIDE [IAI] DAILYLAB CMP, RFLX TO IONIZED CA IF [CHEM] DAILYLAB DIGOXIN [CHEM] DAILYLAB MAGNESIUM [CHEM] DAILYLAB PHOSPHORUS [CHEM] DAILYLAB 01/03/17 09:00 FUROSEMIDE INJ 40mg VIAL [LASIX INJ 40 mg VIAL] 40 mg IVP DAILY 01/04/17 05:00 BNP - B-NATRIURETIC PEPTIDE [IAI] DAILYLAB DIGOXIN [CHEM] DAILYLAB 01/05/17 05:00 BNP - B-NATRIURETIC PEPTIDE [IAI] DAILYLAB Consult/Specialty: PT Plan Discussed with:: Patient, Family Time Spent: 31-60 minutes Subjective - Subjective Patient Reports: Feeling Better (Patient says she feels much better. She still is very weak but breathing continues to improve. She denies any chest or cough. She denies any fevers.) Nursing Reports: No Complaints Objective Vital Signs: Vital Signs - 24 hr 01/01/17 01/01/17 01/01/17 14:00 14:15 15:00 Temperature Heart Rate [ 77 69 Monitoring electrodes] Respiratory 20 15 Rate Blood Pressure 113/52 L Blood Pressure 105/63 115/62 [Right Brachial artery] O2 Saturation 98 96 01/01/17 01/01/17 01/01/17 16:00 17:00 18:00 Temperature Heart Rate [ 80 74 75 Monitoring electrodes] Respiratory 16 14 14 Rate Blood Pressure Blood Pressure 113/52 L 127/68 102/59 L [Right Brachial artery] O2 Saturation 97 95 01/01/17 01/01/17 01/01/17 18:57 20:00 21:00 Temperature 36.5 C 36.7 C Heart Rate [ 76 83 95 Monitoring electrodes] Respiratory 14 17 17 Rate Blood Pressure Blood Pressure 102/59 L 125/53 L 123/88 H [Right Brachial artery] O2 Saturation 98 95 93 01/01/17 01/01/17 01/01/17 21:12 22:00 23:00 Temperature Heart Rate [ 72 63 Monitoring electrodes] Respiratory 17 17 Rate Blood Pressure 123/88 H Blood Pressure 125/53 L 122/56 L [Right Brachial artery] O2 Saturation 98 98 01/02/17 01/02/17 01/02/17 00:00 01:00 02:00 Temperature 36.4 C L Heart Rate [ 78 72 77 Monitoring electrodes] Respiratory 15 16 17 Rate Blood Pressure Blood Pressure 126/54 L 110/55 L 127/59 L [Right Brachial artery] O2 Saturation 96 97 97 01/02/17 01/02/17 01/02/17 03:00 04:00 05:00 Temperature 36.4 C L Heart Rate [ 85 76 73 Monitoring electrodes] Respiratory 17 13 15 Rate Blood Pressure Blood Pressure 126/73 140/79 H 116/66 [Right Brachial artery] O2 Saturation 97 94 97 01/02/17 01/02/17 01/02/17 06:00 06:56 08:00 Temperature 36.4 C L Heart Rate [ 90 74 95 Monitoring electrodes] Respiratory 13 14 20 Rate Blood Pressure Blood Pressure 135/63 H 117/70 92/78 [Right Brachial artery] O2 Saturation 94 97 95 01/02/17 01/02/17 01/02/17 09:00 09:54 10:00 Temperature Heart Rate [ 91 84 Monitoring electrodes] Respiratory 18 16 Rate Blood Pressure 108/55 L Blood Pressure 114/85 H 108/50 L [Right Brachial artery] O2 Saturation 96 95 01/02/17 01/02/17 01/02/17 11:00 12:00 13:00 Temperature 37.1 C Heart Rate [ 72 79 73 Monitoring electrodes] Respiratory 16 16 16 Rate Blood Pressure Blood Pressure 100/57 L 110/55 L 90/49 L [Right Brachial artery] O2 Saturation 95 94 95 01/02/17 13:14 Temperature Heart Rate [ 66 Monitoring electrodes] Respiratory 16 Rate Blood Pressure Blood Pressure 107/43 L [Right Brachial artery] O2 Saturation 95 Oxygen O2 Source [With Activity] Nasal cannula O2 Source Room air I&O (Last 24 Hrs): Intake and Output Totals x24h 12/31/16 01/01/17 01/02/17 23:59 23:59 23:59 Intake Total 2492 640 430 Output Total 3276 4811 1260 [facility]784 -[id number] -830 General: Alert, Oriented x3, Cooperative, No acute distress, Other (Elderly appearing, cachectic lady with alopecia) HEENT: Atraumatic, PERRLA, EOMI, Mucous membr. moist/pink Neck: Supple, No JVD, No thyromegaly, +2 carotid pulse wo bruit, No LAD Lymphatic: no adenopathy Neuro: Alert, Non Focal, CN 2-12 Grossly Intact, Oriented Times 3 Cardiovascular: No murmurs, Other (Irregular) Respiratory: Chest non-tender, No respiratory distress, Rales (Crackles at bases ), Rhonchi (Improved) Abdomen: Normal bowel sounds, Soft, No tenderness, No hepatospenomegaly Extremities: No clubbing, No cyanosis, No edema, Normal pulses Skin: No rashes, No breakdown - Results Results: Laboratory Results WBC 2.0 x10^3/uL (4.8-10.8) L* 01/02/17 04:15 RBC 2.48 10^6/uL (4.20-5.40) L 01/02/17 04:15 Hgb 8.4 g/dL (12.0-16.0) L 01/02/17 04:15 Hct 24.7 % (37.0-47.0) L 01/02/17 04:15 MCV 99.6 fL (81.0-99.0) H 01/02/17 04:15 MCH 33.9 pg (27.0-31.0) H 01/02/17 04:15 MCHC 34.1 g/dL (32.0-36.0) 01/02/17 04:15 RDW 14.1 % (12.0-15.0) 01/02/17 04:15 Plt Count 26 10^3/uL (130-450) L* 01/02/17 04:15 MPV 7.3 fL (7.9-10.8) L 01/02/17 04:15 Neut # Not Reportable 01/02/17 04:15 Lymph # Not Reportable 01/02/17 04:15 [place] # Not Reportable 01/02/17 04:15 Eos # Not Reportable 01/02/17 04:15 Baso # Not Reportable 01/02/17 04:15 Absolute Nucleated RBC Not Reportable 01/02/17 04:15 Total Counted 50 01/02/17 04:15 Band Neuts % (Manual) 6 % (0-10) 01/02/17 04:15 Reactive Lymphs % (Man) 2 % 01/01/17 05:28 Neutrophils # (Manual) 0.9 10^3/uL (1.5-6.6) L 01/02/17 04:15 Lymphocytes # (Manual) 0.7 10^3/uL (1.5-3.5) L 01/02/17 04:15 Monocytes # (Manual) 0.4 10^3/uL (0.0-1.0) 01/02/17 04:15 Nucleated RBCs 1 % 01/02/17 04:15 Differential Comment MANUAL DIFFERENTIAL 01/02/17 04:15 Manual Slide Review Indicated 12/30/16 08:17 Platelet Estimate DECREASED (<130,000) (NORMAL) 01/02/17 04:15 Platelet Morphology NORMAL APPEARANCE (NORMAL) 01/02/17 04:15 RBC Morph Micro Appear 1+ MACROCYTOSIS (NORMAL) 01/01/17 05:28 RBC Morph Micro Appear NORMAL APPEARANCE (NORMAL) 01/02/17 04:15 VBG pH 7.437 (7.31-7.41) H 01/02/17 04:15 Ionized Calcium 1.06 mmol/L (1.15-1.33) L 01/02/17 04:15 Sodium 137 mmol/L (135-145) 01/02/17 04:15 Potassium 2.7 mmol/L (3.5-5.0) L 01/02/17 04:15 Chloride 102 mmol/L (101-111) 01/02/17 04:15 Carbon Dioxide 24 mmol/L (21-32) 01/02/17 04:15 Anion Gap 11.0 (6-13) 01/02/17 04:15 BUN 17 mg/dL (6-20) 01/02/17 04:15 Creatinine 0.8 mg/dL (0.4-1.0) 01/02/17 04:15 Estimated GFR (MDRD) 69 (>89) L 01/02/17 04:15 Glucose 103 mg/dL (70-100) H 01/02/17 04:15 Lactic Acid 1.9 mmol/L (0.5-2.2) 12/30/16 08:17 Calcium 8.0 mg/dL (8.5-10.3) L 01/02/17 04:15 Ionized Calcium YES 01/02/17 04:15 Phosphorus 3.0 mg/dL (2.5-4.6) 01/02/17 04:15 Magnesium 1.7 mg/dL (1.7-2.8) 01/02/17 04:15 Total Bilirubin 0.9 mg/dL (0.2-1.0) 01/02/17 04:15 AST 70 IU/L (10-42) H 01/02/17 04:15 ALT 104 IU/L (10-60) H 01/02/17 04:15 Alkaline Phosphatase 109 IU/L (42-121) 01/02/17 04:15 Troponin I 0.43 ng/mL (<0.49) 12/30/16 20:45 B-Natriuretic Peptide 1786 pg/mL (5-100) H 01/02/17 04:15 Total Protein 5.6 g/dL (6.7-8.2) L 01/02/17 04:15 Albumin 2.5 g/dL (3.2-5.5) L 01/02/17 04:15 Globulin 3.1 g/dL (2.1-4.2) 01/02/17 04:15 Albumin/Globulin Ratio 0.8 (1.0-2.2) L 01/02/17 04:15 Lipase 17 U/L (22-51) L 12/29/16 13:58 Urine Color YELLOW 12/30/16 02:10 Urine Clarity CLEAR (CLEAR) 12/30/16 02:10 Urine pH 5.5 PH (5.0-7.5) 12/30/16 02:10 Ur Specific Stella <=1.005 (1.002-1.030) 12/30/16 02:10 Urine Protein NEGATIVE mg/dL (NEGATIVE) 12/30/16 02:10 Urine Glucose (UA) NEGATIVE mg/dL (NEGATIVE) 12/30/16 02:10 Urine Ketones NEGATIVE mg/dL (NEGATIVE) 12/30/16 02:10 Urine Occult Blood SMALL (NEGATIVE) H 12/30/16 02:10 Urine Nitrite NEGATIVE (NEGATIVE) 12/30/16 02:10 Urine Bilirubin NEGATIVE (NEGATIVE) 12/30/16 02:10 Urine Urobilinogen 0.2 (NORMAL) E.U./dL (NORMAL) 12/30/16 02:10 Ur Leukocyte Esterase NEGATIVE (NEGATIVE) 12/30/16 02:10 Urine RBC 0-5 /HPF (0-5) 12/30/16 02:10 Urine WBC 0-3 /HPF (0-5) 12/30/16 02:10 Ur Squamous Epith Cells FEW Squamous (<= Few) 12/30/16 02:10 Urine Bacteria Few /HPF (None Seen) 12/30/16 02:10 Ur Microscopic Review INDICATED 12/29/16 16:40 Urine Culture Comments NOT INDICATED 12/30/16 02:10 Last Dose Date 01/01/17 01/02/17 04:15 Last Dose Time 0903 01/02/17 04:15 Digoxin 0.9 ng/mL 01/02/17 04:15 Blood Type O NEGATIVE 12/29/16 14:19 - Procedures Procedures: Procedures INSERTION OF TOTALLY IMPLANTABLE VASC ACCESS DEVIC (05/21/13) PACKED CELL TRANSFUSION (01/10/15) PARTIAL HIP REPLACEMENT (01/10/15) REPLACEMENT OF LEFT LENS WITH SYNTH SUB, PERC APPROACH (08/12/15) REPLACEMENT OF RIGHT LENS WITH SYNTH SUB, PERC APPROACH (07/22/15)
[2017-01-02] MEDS: ATORVASTATIN 40 MG TABLET PO SCH (20:29)
[2017-01-02] MEDS: LORATADINE 10 MG TABLET PO SCH (20:30)
[2017-01-03] MEDS: SODIUM CHLORIDE FLUSH 0.9% 10 ML SYRINGE IVP SCH ×3 (05:31→21:25)
[2017-01-03 05:56] LABS: ALBUMIN/GLOBULIN RATIO 0.8 (1.0-2.2); BILIRUBIN,TOTAL 0.8 mg/dL (0.2-1.0); BUN - BLOOD UREA NITROGEN 18 mg/dL (6-20); CALCIUM 8.2 mg/dL (8.5-10.3); CARBON DIOXIDE - CO2 26 mmol/L (21-32); CHLORIDE 104 mmol/L (101-111); CREATININE 0.8 mg/dL (0.4-1.0); GFR - MDRD 69 (>89); GLUCOSE 106 mg/dL (70-100); POTASSIUM 4.7 mmol/L (3.5-5.0); SODIUM 138 mmol/L (135-145); TOTAL PROTEIN 5.9 g/dL (6.7-8.2)
[2017-01-03 05:57] LABS: CALCIUM, IONIZED 1.1 mmol/L (1.15-1.33); VBG PH 7.441 (7.31-7.41)
[2017-01-03 06:09] LABS: MAGNESIUM 1.6 mg/dL (1.7-2.8); PHOSPHORUS 1.6 mg/dL (2.5-4.6)
[2017-01-03] MEDS: SODIUM CHLORIDE FLUSH 0.9% 10 ML SYRINGE IVP PRN (08:56)
[2017-01-03] MEDS: METOPROLOL TARTRATE 50 MG TABLET PO SCH ×2 (08:56→20:46)
[2017-01-03] MEDS: DIGOXIN 125 MCG TABLET PO SCH (08:57)
[2017-01-03] MEDS: LISINOPRIL 5 MG TABLET PO SCH (08:57)
[2017-01-03] MEDS: POTASSIUM CHLORIDE 20 MEQ TABLET PO SCH ×3 (08:57→17:52)
[2017-01-03] MEDS: POLYETHYLENE GLYCOL 3350 17 GM PACKET PO SCH (08:57)
[2017-01-03] MEDS ORDERED: FUROSEMIDE 40 MG/4 ML VIAL IVP SCH (09:00)
[2017-01-03] MEDS ORDERED: levoFLOXacin 250 MG TABLET PO SCH (09:00)
[2017-01-03] MEDS ORDERED: CALCIUM ACETATE 667 MG CAPSULE PO STA (11:23)
--- NOTE | 2017-01-03 11:52 | PROVIDER PROGRESS NOTE ---
Assessment/Plan - Problem List (1) Septic shock Assessment/Plan: Patient presented to the ER for a platelet transfusion but while in the ER she spiked a fever of 38.3 and was neutropenic with a ANC of 100 Work up showed possible pneumonia on CT chest Once patient arrived on floor she became hypotensive with BP down to 70/45 and tachycardic despite several liters of IVF Patient was then transferred to ICU and placed on a dopamine drip Patients lactic acid was elevated to 8.4. Lactic acid now normal Other possible source is infection of the port with bacteremia but port does not appear infected Off dopamine since 01/01/17 with stable BPs Blood cx negative Continue IV Vanco and Cefepime day 5 with switch to PO levaquin at discharge to complete 7 days of treatment. Discharge when no fever for 24 hrs and comfortable OOB in chair (2) Atrial fibrillation Qualifiers: Atrial fibrillation type: chronic Qualified Code(s): I48.2 - Chronic atrial fibrillation Assessment/Plan: Patient went into a fib with rvr with HR in the 160s up to 180s on 12/31/16 morning Patient given IV metoprolol and given digoxin load Restarted on PO metoprolol and titrated up on dose to 100 mg BID Patient became hypoxic, tachypnic and had respiratory distress 12/31/16 likely secondary to pulmonary edema due to rapid a fib in conjunction with her systolic HF with reduced EF of 20% seen on Echo done 12/31 Patient given lasix and improved Dig level slightly low this am will on PO dig today and continue to monitor level may need to adjust PO dose Tele monitoring HR stable Continue to adjust metoprolol and digoxin as needed (3) Systolic heart failure Qualifiers: Heart failure chronicity: unspecified heart failure chronicity Qualified Code(s): I50.20 - Unspecified systolic (congestive) heart failure Assessment/Plan: Echo shows EF of 25% which appears acute normal EF in 2014. Patient also with elevated Trop minimally does not match global severe hypokinesis. 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 On 12/31/16 patient went into CHF exacerbation likely secondary to rapid a fib with HR in the 160s to 180s not allowing for adequate filling of LV in setting of decreased LV function Chest xray showed pulmonary edema Patient given IV lasix with improvement and good output BNP improving Change lasix to 40 mg po daily and add Spironolactone. Continue DENZEL (Lisinopril ) but decrease wilson. Will advance activity and DC taylor Tele monitoring continue and continue Metoprolol rather than Coreg, for rate control. 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 Continue IV vanco and cefepime day 5 switch to PO levaquin tomorrow Blood cx negative Advance activity and assess O2 saturation (6) Hypomagnesemia Assessment/Plan: Continues to be borderline/low. Probably from poor po intake due to infection. Will replace and follow (7) Hypophosphatemia Assessment/Plan: Probably from poor po intake due to infction and debilitated condition. Will replace and follow (8) Pancytopenia Assessment/Plan: Secondary to chemotherapy Patients neutropenic with ANC up to 900, anemic with Hb up to 8.4 and thrombocytopenic with Plt count of 26 Patient presented with plt count of 10 and received 6 pack Plt transfusion Plt count is improving. Monitor CBC daily Transfuse if hb less than 7 plts less than 10 or bleeding - Current Meds Current Meds: Current Medications Generic Name Dose Route Start Last Admin Trade Name Freq PRN Reason Stop Dose Admin Atorvastatin Calcium 40 mg 12/30/16 21:00 01/02/17 20:29 Lipitor PO 40 mg QPM HENRIETTA Administration Digoxin 125 mcg 12/31/16 09:00 01/03/17 08:57 Lanoxin PO 125 mcg DAILY HENRIETTA Administration Heparin Sodium (Beef Lung) 30 - 50 unit 12/31/16 19:07 12/31/16 19:15 IVP 01/30/17 19:08 50 unit ONCE PRN Administration Port Protocol (<24 hours) Levofloxacin 500 mg 01/03/17 09:00 01/03/17 08:57 Levaquin PO 01/03/17 12:00 500 mg ONCE HENRIETTA Administration Lisinopril 5 mg 12/31/16 09:00 01/03/17 08:57 Zestril PO 5 mg DAILY HENRIETTA Administration Loratadine 10 mg 12/30/16 21:00 01/02/17 20:30 Claritin PO 10 mg QPM HENRIETTA Administration Metoprolol Tartrate 5 mg 12/31/16 01:51 12/31/16 10:50 Lopressor Inj IVP 5 mg BID PRN Administration HR >120 Metoprolol Tartrate 100 mg 01/01/17 08:15 01/03/17 08:56 Lopressor PO 100 mg BID HENRIETTA Administration Polyethylene Glycol 17 gm 12/30/16 09:00 01/03/17 08:57 Miralax PO 17 gm DAILY HENRIETTA Administration Potassium Chloride 40 meq 01/02/17 12:00 01/03/17 08:57 K-Dur PO 40 meq TIDWM HENRIETTA Administration Sodium Chloride 10 ml 12/29/16 22:00 01/03/17 05:31 Normal Saline Flush 0.9% IVP 10 ml Q8HR HENRIETTA Administration Sodium Chloride 10 ml 12/29/16 22:00 01/03/17 08:56 Normal Saline Flush 0.9% IVP 10 ml PRN PRN Administration NEEDED PER PROVIDER ORDERS - Lab Result Lab results reviewed: Yes Fish Bone Diagrams: 01/02/17 04:15 01/03/17 05:30 - Additional Planning My Orders: My Active Orders 01/03/17 11:08 Miscellaenous Nursing Order [RC] QSHIFT 01/03/17 11:09 O2 Sat [RC] RTDAILY 01/03/17 12:00 Magnesium Oxide [Mag Ox] 400 mg PO DAILYWM 01/04/17 06:00 BMP - BASIC METABOLIC PANEL [CHEM] Routine CBC W/O DIFF (HEMOGRAM) [HEME] Routine MAGNESIUM [CHEM] Routine 01/04/17 09:00 Furosemide [Lasix] 40 mg PO DAILY Spironolactone [Aldactone] 25 mg PO DAILY Subjective - Subjective Patient Reports: Resting Comfortably Nursing Reports: No Complaints Objective Vital Signs: Vital Signs - 24 hr 01/02/17 01/02/17 01/02/17 12:00 13:00 13:14 Temperature 37.1 C Heart Rate [ 79 73 66 Monitoring electrodes] Heart Rate [ Radial] Respiratory 16 16 16 Rate Blood Pressure Blood Pressure 110/55 L 90/49 L 107/43 L [Right Brachial artery] O2 Saturation 94 95 95 01/02/17 01/02/17 01/02/17 16:07 20:30 21:00 Temperature 36.3 C L 36.4 C L Heart Rate [ 64 84 Monitoring electrodes] Heart Rate [ Radial] Respiratory 16 16 Rate Blood Pressure 98/38 L Blood Pressure 101/45 L 98/38 L [Right Brachial artery] O2 Saturation 93 94 01/03/17 01/03/17 01/03/17 01:00 05:00 08:10 Temperature 36.4 C L 36.7 C 36.3 C L Heart Rate [ 98 80 Monitoring electrodes] Heart Rate [ 75 Radial] Respiratory 18 18 16 Rate Blood Pressure Blood Pressure 113/63 133/56 H 136/53 H [Right Brachial artery] O2 Saturation 93 93 95 01/03/17 11:31 Temperature 34.7 C L Heart Rate [ Monitoring electrodes] Heart Rate [ 67 Radial] Respiratory 17 Rate Blood Pressure Blood Pressure 111/66 [Right Brachial artery] O2 Saturation 92 Oxygen O2 Source [With Activity] Nasal cannula O2 Source Room air I&O (Last 24 Hrs): Intake and Output Totals x24h 01/01/17 01/02/17 01/03/17 23:59 23:59 23:59 Intake Total 640 980 250 Output Total 4811 1515 1075 [facility] -[phone] General: No acute distress HEENT: PERRLA, EOMI, Mucous membr. moist/pink Neck: Supple, No JVD Neuro: Alert Cardiovascular: No murmurs Respiratory: No respiratory distress Abdomen: Normal bowel sounds, Soft Extremities: No clubbing, No edema - Results Results: Laboratory Results WBC 2.0 x10^3/uL (4.8-10.8) L* 01/02/17 04:15 RBC 2.48 10^6/uL (4.20-5.40) L 01/02/17 04:15 Hgb 8.4 g/dL (12.0-16.0) L 01/02/17 04:15 Hct 24.7 % (37.0-47.0) L 01/02/17 04:15 MCV 99.6 fL (81.0-99.0) H 01/02/17 04:15 MCH 33.9 pg (27.0-31.0) H 01/02/17 04:15 MCHC 34.1 g/dL (32.0-36.0) 01/02/17 04:15 RDW 14.1 % (12.0-15.0) 01/02/17 04:15 Plt Count 26 10^3/uL (130-450) L* 01/02/17 04:15 MPV 7.3 fL (7.9-10.8) L 01/02/17 04:15 Neut # Not Reportable 01/02/17 04:15 Lymph # Not Reportable 01/02/17 04:15 [place] # Not Reportable 01/02/17 04:15 Eos # Not Reportable 01/02/17 04:15 Baso # Not Reportable 01/02/17 04:15 Absolute Nucleated RBC Not Reportable 01/02/17 04:15 Total Counted 50 01/02/17 04:15 Band Neuts % (Manual) 6 % (0-10) 01/02/17 04:15 Reactive Lymphs % (Man) 2 % 01/01/17 05:28 Neutrophils # (Manual) 0.9 10^3/uL (1.5-6.6) L 01/02/17 04:15 Lymphocytes # (Manual) 0.7 10^3/uL (1.5-3.5) L 01/02/17 04:15 Monocytes # (Manual) 0.4 10^3/uL (0.0-1.0) 01/02/17 04:15 Nucleated RBCs 1 % 01/02/17 04:15 Differential Comment MANUAL DIFFERENTIAL 01/02/17 04:15 Manual Slide Review Indicated 12/30/16 08: Platelet Estimate DECREASED (<130,000) (NORMAL) 01/02/17 04:15 Platelet Morphology NORMAL APPEARANCE (NORMAL) 01/02/17 04:15 RBC Morph Micro Appear 1+ MACROCYTOSIS (NORMAL) 01/01/17 05:28 RBC Morph Micro Appear NORMAL APPEARANCE (NORMAL) 01/02/17 04:15 VBG pH 7.441 (7.31-7.41) H 01/03/17 05:30 Ionized Calcium 1.10 mmol/L (1.15-1.33) L 01/03/17 05:30 Sodium 138 mmol/L (135-145) 01/03/17 05:30 Potassium 4.7 mmol/L (3.5-5.0) 01/03/17 05:30 Chloride 104 mmol/L (101-111) 01/03/17 05:30 Carbon Dioxide 26 mmol/L (21-32) 01/03/17 05:30 Anion Gap 8.0 (6-13) 01/03/17 05:30 BUN 18 mg/dL (6-20) 01/03/17 05:30 Creatinine 0.8 mg/dL (0.4-1.0) 01/03/17 05:30 Estimated GFR (MDRD) 69 (>89) L 01/03/17 05:30 Glucose 106 mg/dL (70-100) H 01/03/17 05:30 Lactic Acid 1.9 mmol/L (0.5-2.2) 12/30/16 08:17 Calcium 8.2 mg/dL (8.5-10.3) L 01/03/17 05:30 Ionized Calcium YES 01/03/17 05:30 Phosphorus 1.6 mg/dL (2.5-4.6) L 01/03/17 05:30 Magnesium 1.6 mg/dL (1.7-2.8) L 01/03/17 05:30 Total Bilirubin 0.8 mg/dL (0.2-1.0) 01/03/17 05:30 AST 66 IU/L (10-42) H 01/03/17 05:30 ALT 97 IU/L (10-60) H 01/03/17 05:30 Alkaline Phosphatase 109 IU/L (42-121) 01/03/17 05:30 Troponin I 0.43 ng/mL (<0.49) 12/30/16 20:45 B-Natriuretic Peptide 845 pg/mL (5-100) H 01/03/17 05:30 Total Protein 5.9 g/dL (6.7-8.2) L 01/03/17 05:30 Albumin 2.6 g/dL (3.2-5.5) L 01/03/17 05:30 Globulin 3.3 g/dL (2.1-4.2) 01/03/17 05:30 Albumin/Globulin Ratio 0.8 (1.0-2.2) L 01/03/17 05:30 Lipase 17 U/L (22-51) L 12/29/16 13:58 Urine Color YELLOW 12/30/16 02:10 Urine Clarity CLEAR (CLEAR) 12/30/16 02:10 Urine pH 5.5 PH (5.0-7.5) 12/30/16 02:10 Ur Specific Bells <=1.005 (1.002-1.030) 12/30/16 02:10 Urine Protein NEGATIVE mg/dL (NEGATIVE) 12/30/16 02:10 Urine Glucose (UA) NEGATIVE mg/dL (NEGATIVE) 12/30/16 02:10 Urine Ketones NEGATIVE mg/dL (NEGATIVE) 12/30/16 02:10 Urine Occult Blood SMALL (NEGATIVE) H 12/30/16 02:10 Urine Nitrite NEGATIVE (NEGATIVE) 12/30/16 02:10 Urine Bilirubin NEGATIVE (NEGATIVE) 12/30/16 02:10 Urine Urobilinogen 0.2 (NORMAL) E.U./dL (NORMAL) 12/30/16 02:10 Ur Leukocyte Esterase NEGATIVE (NEGATIVE) 12/30/16 02:10 Urine RBC 0-5 /HPF (0-5) 12/30/16 02:10 Urine WBC 0-3 /HPF (0-5) 12/30/16 02:10 Ur Squamous Epith Cells FEW Squamous (<= Few) 12/30/16 02:10 Urine Bacteria Few /HPF (None Seen) 12/30/16 02:10 Ur Microscopic Review INDICATED 12/29/16 16:40 Urine Culture Comments NOT INDICATED 12/30/16 02:10 Last Dose Date UNK 01/03/17 05:30 Last Dose Time UNK 01/03/17 05:30 Digoxin 1.4 ng/mL 01/03/17 05:30 Blood Type O NEGATIVE 12/29/16 14:19 - Procedures Procedures: Procedures INSERTION OF TOTALLY IMPLANTABLE VASC ACCESS DEVIC (05/21/13) PACKED CELL TRANSFUSION (01/10/15) PARTIAL HIP REPLACEMENT (01/10/15) REPLACEMENT OF LEFT LENS WITH SYNTH SUB, PERC APPROACH (08/12/15) REPLACEMENT OF RIGHT LENS WITH SYNTH SUB, PERC APPROACH (07/22/15)
[2017-01-03] MEDS: MAGNESIUM OXIDE 400 MG TABLET PO SCH (13:18)
[2017-01-03] MEDS: LORATADINE 10 MG TABLET PO SCH (20:46)
[2017-01-03] MEDS: ATORVASTATIN 40 MG TABLET PO SCH (20:46)
[2017-01-04] MEDS: SODIUM CHLORIDE FLUSH 0.9% 10 ML SYRINGE IVP SCH ×2 (04:42→10:06)
[2017-01-04 05:21] LABS: HCT - HEMATOCRIT 23.9 % (37.0-47.0); HGB - HEMOGLOBIN 8.1 g/dL (12.0-16.0); MEAN CORPUSCULAR HEMOGLOBIN 34.4 pg (27.0-31.0); MEAN CORPUSCULAR HGB CONC 34.1 g/dL (32.0-36.0); MEAN PLATELET VOLUME 7.4 fL (7.9-10.8); RED BLOOD COUNT 2.36 10^6/uL (4.20-5.40); RED CELL DISTRIBUTION WIDTH 14.2 % (12.0-15.0); WHITE BLOOD COUNT 4.2 x10^3/uL (4.8-10.8)
[2017-01-04 05:36] LABS: BUN - BLOOD UREA NITROGEN 18 mg/dL (6-20); CALCIUM 8.4 mg/dL (8.5-10.3); CARBON DIOXIDE - CO2 28 mmol/L (21-32); CHLORIDE 100 mmol/L (101-111); CREATININE 0.9 mg/dL (0.4-1.0); GFR - MDRD 61 (>89); GLUCOSE 104 mg/dL (70-100); MAGNESIUM 1.6 mg/dL (1.7-2.8); POTASSIUM 4.5 mmol/L (3.5-5.0); SODIUM 135 mmol/L (135-145)
[2017-01-04] MEDS ORDERED: MAGNESIUM SULFATE 1 GM in SODIUM CHLORIDE 0.9% 50 ML IV ONE (07:50)
[2017-01-04] MEDS: POTASSIUM CHLORIDE 20 MEQ TABLET PO SCH (08:52)
[2017-01-04] MEDS: MAGNESIUM OXIDE 400 MG TABLET PO SCH (08:53)
[2017-01-04] MEDS: DIGOXIN 125 MCG TABLET PO SCH (08:53)
[2017-01-04] MEDS: METOPROLOL TARTRATE 50 MG TABLET PO SCH (08:54)
[2017-01-04 08:55] VITALS: BP 150/53
[2017-01-04] MEDS ORDERED: FUROSEMIDE 40 MG TABLET PO SCH (09:00)
[2017-01-04] MEDS ORDERED: levoFLOXacin 250 MG TABLET PO SCH (09:00)
[2017-01-04] MEDS ORDERED: LISINOPRIL 5 MG TABLET PO SCH (09:00)
[2017-01-04] MEDS ORDERED: SPIRONOLACTONE 25 MG TABLET PO SCH (09:00)
--- NOTE | 2017-01-04 10:44 | Discharge Plan ---
Discharge Plan Disposition: Home, Self Care Prescriptions: Spironolactone [Aldactone] 25 mg PO DAILY #30 tablet Potassium Chloride [K-Dur] 40 meq PO DAILY #30 tablet Digoxin [Lanoxin] 125 mcg PO UD #12 tablet levoFLOXacin [Levaquin] 250 mg PO DAILY #5 tablet Magnesium Oxide [Mag Ox] 400 mg PO DAILYWM #30 tablet Lisinopril [Zestril] 2.5 mg PO DAILY #30 tablet Diet: Regular Activity Restrictions: Activity as Tolerated Shower Restrictions: No Driving Restrictions: No Instruction Topics: Heart Failure Additional Instructions or Follow Up instructions: I would follow-up with Dr. Almaguer before restarting the oral chemotherapy agents, she may want to change or discontinue this based on your low blood counts. If you develop any evidence of infection, or any fever greater than 100.3 please return immediately. No Smoking: If you smoke, Please STOP! Call for help. Follow-up with: Patience Pagan MD [Primary Care Provider] -
[2017-01-04] MEDS: POLYETHYLENE GLYCOL 3350 17 GM PACKET PO SCH (10:56)
[2017-01-04] MEDS ORDERED: SODIUM CHLORIDE FLUSH 0.9% 10 ML SYRINGE IVP ONE (11:27)
[2017-01-04] MEDS: SODIUM CHLORIDE FLUSH 0.9% 10 ML SYRINGE IVP PRN (11:30)
== END 2017-01-04 12:30 | disposition home or self-care (01) | DRG 871 ==
LOC: ED 12:46 → MS2 22:00 → ICU 12-30 02:54 → MS2 01-02 14:51
PROVIDERS: ADMIT Specialist; ATTEND Internal Medicine
DX: A41.9 Sepsis, unspecified organism (principal); R65.21 Severe sepsis with septic shock; D61.810 Antineoplastic chemotherapy induced pancytopenia; J18.9 Pneumonia, unspecified organism; I13.0 Hypertensive heart and chronic kidney disease with heart failure and stage 1 through stage 4 chronic kidney disease, or unspecified chronic kidney disease; I50.20 Unspecified systolic (congestive) heart failure; C34.32 Malignant neoplasm of lower lobe, left bronchus or lung; Z68.1 Body mass index [BMI] 19.9 or less, adult; H54.7 Unspecified visual loss; I48.2 Chronic atrial fibrillation; M81.0 Age-related osteoporosis without current pathological fracture; R79.89 Other specified abnormal findings of blood chemistry; M54.9 Dorsalgia, unspecified; E87.6 Hypokalemia; E83.42 Hypomagnesemia; E83.39 Other disorders of phosphorus metabolism; E83.51 Hypocalcemia; R50.81 Fever presenting with conditions classified elsewhere; I95.9 Hypotension, unspecified; J44.9 Chronic obstructive pulmonary disease, unspecified; F17.200 Nicotine dependence, unspecified, uncomplicated; K90.0 Celiac disease; E11.22 Type 2 diabetes mellitus with diabetic chronic kidney disease; N18.3 Chronic kidney disease, stage 3 (moderate); J30.9 Allergic rhinitis, unspecified; E78.5 Hyperlipidemia, unspecified; M25.512 Pain in left shoulder; R63.4 Abnormal weight loss; G89.29 Other chronic pain; M19.90 Unspecified osteoarthritis, unspecified site; N81.4 Uterovaginal prolapse, unspecified; N39.41 Urge incontinence; R53.83 Other fatigue; R41.3 Other amnesia; T45.1X5A Adverse effect of antineoplastic and immunosuppressive drugs, initial encounter; T66.XXXD Radiation sickness, unspecified, subsequent encounter; Y92.531 Health care provider office as the place of occurrence of the external cause; Z79.82 Long term (current) use of aspirin; Z79.899 Other long term (current) drug therapy; Z87.01 Personal history of pneumonia (recurrent); Z87.81 Personal history of (healed) traumatic fracture; I25.2 Old myocardial infarction; Z66 Do not resuscitate
CPT/HCPCS: 36415; 36430; 71010; 71275; 80048; 80053; 80162; 81001; 81003; 82040; 82310; 82330; 83605; 83690; 83735; 83880; 84100; 84484; 85025; 86900; 86901; 86965; 87040; 87086; 87150; 93005; 93306; 96361; 96365; 96375; 99285; 99291

== ENCOUNTER 2017-01-20 18:40 | Emergency (ER) | payer MEDICARE, OTHER ==
[2017-01-20] MEDS ORDERED: SODIUM CHLORIDE 0.9% 1,000 ML IV ONE (19:58)
[2017-01-20 21:19] LABS: BASOPHILS % (AUTO) 0.3 %; EOSINOPHILS % (AUTO) 0.2 %; HGB - HEMOGLOBIN 10.4 g/dL (12.0-16.0); LYMPHOCYTES # (AUTO) 0.7 10^3/uL (1.5-3.5); LYMPHOCYTES % (AUTO) 9.1 %; MEAN CORPUSCULAR HEMOGLOBIN 33.7 pg (27.0-31.0); MEAN CORPUSCULAR HGB CONC 32.4 g/dL (32.0-36.0); MEAN CORPUSCULAR VOLUME 104.1 fL (81.0-99.0); MEAN PLATELET VOLUME 6.4 fL (7.9-10.8); MONOCYTES # (AUTO) 0.7 10^3/uL (0.0-1.0); MONOCYTES % (AUTO) 9.1 %; NEUTROPHILS # (AUTO) 6.3 10^3/uL (1.5-6.6); NEUTROPHILS % (AUTO) 81.3 %; RED BLOOD COUNT 3.07 10^6/uL (4.20-5.40); RED CELL DISTRIBUTION WIDTH 17.7 % (12.0-15.0); UNCORRECTED WHITE BLOOD COUNT 7.8 x10^3/uL; WHITE BLOOD COUNT 7.8 x10^3/uL (4.8-10.8)
--- NOTE | 2017-01-20 21:22 | XRAY Preliminary Report ---
Exam: XR Chest 1 View IMPRESSION: Improved pulmonary aeration since 12/23/2016. No new airspace opacity. [facility] SITE ID: [id number]
--- NOTE | 2017-01-20 21:25 | XRAY Report ---
EXAM: CHEST RADIOGRAPHY EXAM DATE: 01/20/2017 09:04 PM. CLINICAL HISTORY: Hypotension, immunocompromised lung ca. COMPARISON: 12/31/2016. TECHNIQUE: 1 view. FINDINGS: Lungs/Pleura: Improved aeration of both lungs with decreased interstitial density. No new airspace di sease. Negative for pneumothorax. Mediastinum: Heart size is normal. There is moderate calcification and tortuosity of the aorta. Left- sided Port-A-Cath unchanged. Other: None. IMPRESSION: Improved pulmonary aeration since 12/23/2016. No new airspace opacity. [facility] Referring Provider Line: [phone] SITE ID: [id number]
[2017-01-20 21:33] LABS: ALBUMIN/GLOBULIN RATIO 0.9 (1.0-2.2); BILIRUBIN,TOTAL 0.5 mg/dL (0.2-1.0); CALCIUM 8.6 mg/dL (8.5-10.3); CREATININE 1.6 mg/dL (0.4-1.0); MAGNESIUM 2.2 mg/dL (1.7-2.8); POTASSIUM 4.9 mmol/L (3.5-5.0)
--- NOTE | 2017-01-20 22:43 | ED Physician Documentation ---
History of Present Illness - Stated complaint Stated Complaint: LOW BLOOD PRESSURE - Chief complaint Chief Complaint: General - History obtained from History obtained from: Patient, Family - History of Present Illness Timing: How many days ago (3) - Additonal information Additional information: Patient is a 76 year old female with a history of lung ca, on chemotherapy who was brought in by her for generalized weakness. according to patient and the patient has not been eating or drinking much because she has not been hungry. is getting worried because her blood pressures have been low and she seemed weak. Patient denied any complaints. Review of Systems Constitutional: reports: Fatigue. denies: Fever, Chills, Sweats Eyes: denies: Decreased vision, Photophobia Ears: denies: Ear pain, Drainage/discharge Nose: denies: Congestion, Epistaxis Throat: denies: Dental pain / toothache, Sore throat Cardiac: denies: Chest pain / pressure, Palpitations Respiratory: denies: Dyspnea, Cough GI: denies: Abdominal Pain, Nausea, Vomiting, Constipation, Diarrhea : denies: Dysuria, Frequency, Hesitancy, Incontinent Skin: denies: Rash, Lesions Musculoskeletal: denies: Neck pain, Back pain, Extremity pain Neurologic: reports: Generalized weakness. denies: Syncope, Seizure, Confused, Headache, Head injury, LOC Psychiatric: denies: Depressed, Suicidal Immunocompromised: reports: Immunocompromised, Chemotherapy PD PAST MEDICAL HISTORY - Past Medical History Past Medical History: Yes Cardiovascular: Congestive heart failure, Hypertension Respiratory: Shortness of breath, Other Neuro: None Endocrine/Autoimmune: Type 2 diabetes GI: GERD, Other : None HEENT: Chronic vision loss Psych: None Musculoskeletal: Osteoarthritis, Osteoporosis, Chronic back pain Derm: None - Past Surgical History Past Surgical History: Yes General: EGD, Colonoscopy Ortho: Other HEENT: Cataracts, Tonsil/Adenoidectomy - Present Medications Home Medications: Ambulatory Orders Medication Instructions Recorded Confirmed Metoprolol Tartrate [Lopressor] 25 mg PO BID 12/11/12 12/29/16 Acetaminophen [Tylenol] 650 mg PO BID PRN 12/10/13 12/29/16 Furosemide 20 mg PO DAILY 01/10/15 12/29/16 Lidocaine Patch 5% [Lidoderm Patch] 1 each TOP DAILY PRN 06/02/15 12/29/16 Cholecalciferol (Vitamin D3) 2,000 units PO DAILY 04/05/16 12/29/16 [Vitamin D3] Loperamide HCl [Imodium A-D] 2 mg PO QID PRN 04/12/16 12/29/16 Loratadine [Claritin] 10 mg PO QPM 08/30/16 12/29/16 Topotecan HCl [Hycamtin] 3 mg PO DAILY 12/30/16 12/30/16 Digoxin [Lanoxin] 125 mcg PO UD #12 tablet 01/04/17 Lisinopril [Zestril] 2.5 mg PO DAILY #30 tablet 01/04/17 Magnesium Oxide [Mag Ox] 400 mg PO DAILYWM #30 tablet 01/04/17 Potassium Chloride [K-Dur] 40 meq PO DAILY #30 tablet 01/04/17 Spironolactone [Aldactone] 25 mg PO DAILY #30 tablet 01/04/17 levoFLOXacin [Levaquin] 250 mg PO DAILY #5 tablet 01/04/17 - Allergies Allergies/Adverse Reactions: Allergies Allergy/AdvReac Type Severity Reaction Status Date / Time Sulfa (Sulfonamide Allergy Intermediate Rash Verified 07/21/15 13:44 Antibiotics) - Social History Does the pt smoke?: Yes Smoking Status: Light tobacco smoker Does the pt drink ETOH?: No Does the pt have substance abuse?: No - Immunizations Immunizations are current?: Yes - POLST Patient has POLST: No PD ED PE NORMAL - Vitals Vital signs reviewed: Yes - General General: Alert and oriented X 3 - HEENT HEENT: Atraumatic, PERRL - Neck Neck: No JVD - Cardiac Cardiac: RRR, No murmur - Respiratory Respiratory: No respiratory distress - Abdomen Abdomen: Soft, Non tender, Non distended - Derm Derm: Normal color, Warm and dry, No rash - Extremities Extremities: No deformity, No edema - Neuro Neuro: Alert and oriented X 3, No motor deficit, No sensory deficit, Normal speech - Psych Psych: Normal mood PD ED PE EXPANDED - HEENT HEENT: Dry mucous membranes - Cardiac Cardiac: Irregularly irregular Results - Vitals Vitals: Vital Signs - 24 hr 01/20/17 01/20/17 01/20/17 18:53 19:09 19:17 Temperature 36.3 C L Heart Rate 80 Respiratory 18 Rate Blood Pressure 79/52 L 117/58 L O2 Saturation 01/20/17 01/20/17 21:48 22:57 Temperature Heart Rate 97 87 Respiratory 14 Rate Blood Pressure 90/48 L 103/63 O2 Saturation 96 97 Oxygen O2 Source [With Activity] Nasal cannula O2 Source [Without Activity] Room air O2 Source Room air - Labs Labs: Laboratory Tests 01/20/17 01/20/17 21:15 21:15 WBC 7.8 RBC 3.07 L Hgb 10.4 L Hct 32.0 L MCV 104.1 H MCH 33.7 H MCHC 32.4 RDW 17.7 H Plt Count 300 MPV 6.4 L Neut # 6.3 Lymph # 0.7 L Gregg # 0.7 Eos # 0.0 Baso # 0.0 Absolute Nucleated RBC 0.00 Nucleated RBCs 0.0 Sodium 129 L Potassium 4.9 Chloride 101 Carbon Dioxide 19 L Anion Gap 9.0 BUN 46 H Creatinine 1.6 H Estimated GFR (MDRD) 31 L Glucose 90 Calcium 8.6 Magnesium 2.2 Total Bilirubin 0.5 AST 22 ALT 13 Alkaline Phosphatase 88 Total Protein 7.0 Albumin 3.4 Globulin 3.6 Albumin/Globulin Ratio 0.9 L Lipase 28 PD MEDICAL DECISION MAKING - ED course Complexity details: reviewed old records, reviewed results, re-evaluated patient , considered differential, d/w patient, d/w family ED course: Patient was seen and examined at bedside. IV access was gained and labs were drawn. Patient was started on a fluid bolus. chest x-ray was performed and showed no acute abnormalities. Marcia foudn to be dehydrated and slightly hyponatremic but no signs of infection. After the fluids patient stated she was feeling better. Patient and wanted to go home. patient required no further work up and was stable for discharge with outpatient follow up. Departure - Departure Disposition: Home, Self Care Clinical Impression: Dehydration Condition: Good Instructions: ED Dehydration Follow-Up: Patience Pagan MD [Primary Care Provider] - Within 3 Days Comments: Your diagnostics today were consistent with dehydration. it is important that you increase your oral intake. Even if you don't have an appetite it is important to eat something. You should follow up with your doctor on monday and could consider appetite stimulants. You may return to the emergency department at any time for new, worsening or uncontrollable symptoms. Discharge Date/Time: 01/20/17 23:15
[2017-01-20 23:15] VITALS: BP 103/63
== END 2017-01-20 23:15 | disposition home or self-care (01) ==
LOC: ED 18:40
DX: E86.0 Dehydration (principal); C34.90 Malignant neoplasm of unspecified part of unspecified bronchus or lung; Z92.21 Personal history of antineoplastic chemotherapy; I10 Essential (primary) hypertension; E11.9 Type 2 diabetes mellitus without complications; F17.200 Nicotine dependence, unspecified, uncomplicated
CPT/HCPCS: 36415; 71010; 80053; 83690; 83735; 85025; 87040; 99283; 99284

== ENCOUNTER 2017-01-23 22:06 | Outpatient (CLI) | payer MEDICARE, OTHER | END 2017-01-23 22:07 | disposition critical access hospital (66) | LOC: EMS 22:06 | PROVIDERS: ATTEND Surgery | DX: R53.83 Other fatigue (principal); R25.1 Tremor, unspecified; R50.9 Fever, unspecified | CPT/HCPCS: A0425; A0427 ==

== ENCOUNTER 2017-01-23 22:16 | Inpatient (IN) | payer MEDICARE, OTHER ==
[2017-01-23] MEDS ORDERED: SODIUM CHLORIDE 0.9% 1,000 ML IV ONE (22:24)
[2017-01-23 23:00] LABS: BASOPHILS # (AUTO) 0.1 10^3/uL (0.0-0.1); BASOPHILS % (AUTO) 0.5 %; HCT - HEMATOCRIT 29.3 % (37.0-47.0); HGB - HEMOGLOBIN 9.7 g/dL (12.0-16.0); LYMPHOCYTES # (AUTO) 0.2 10^3/uL (1.5-3.5); LYMPHOCYTES % (AUTO) 1.3 %; MEAN CORPUSCULAR HEMOGLOBIN 34.6 pg (27.0-31.0); MEAN CORPUSCULAR HGB CONC 33.2 g/dL (32.0-36.0); MEAN CORPUSCULAR VOLUME 104.2 fL (81.0-99.0); MEAN PLATELET VOLUME 7.6 fL (7.9-10.8); MONOCYTES # (AUTO) 0.8 10^3/uL (0.0-1.0); MONOCYTES % (AUTO) 4.5 %; NEUTROPHILS # (AUTO) 15.6 10^3/uL (1.5-6.6); NEUTROPHILS % (AUTO) 93.7 %; NUCLEATED RED BLOOD CELLS AUTO 0.2 /100WBC; RED BLOOD COUNT 2.81 10^6/uL (4.20-5.40); RED CELL DISTRIBUTION WIDTH 18.2 % (12.0-15.0); UNCORRECTED WHITE BLOOD COUNT 16.7 x10^3/uL; WHITE BLOOD COUNT 16.7 x10^3/uL (4.8-10.8)
[2017-01-23 23:13] LABS: ALBUMIN/GLOBULIN RATIO 0.9 (1.0-2.2); BILIRUBIN,TOTAL 0.5 mg/dL (0.2-1.0); CALCIUM 8.1 mg/dL (8.5-10.3); CREATININE 1.5 mg/dL (0.4-1.0); POTASSIUM 4.9 mmol/L (3.5-5.0); TOTAL PROTEIN 6.5 g/dL (6.7-8.2)
[2017-01-23] MEDS ORDERED: PIPERACILLIN/TAZOBACTAM 3.375 GM in SODIUM CHLORIDE 0.9% MINIBAG 100 ML IV STA (23:24)
[2017-01-23] MEDS ORDERED: VANCOMYCIN INJ 1 GM in SODIUM CHLORIDE 0.9% 250 ML IV STA (23:24)
[2017-01-23] MEDS ORDERED: SODIUM CHLORIDE 0.9% 500 ML IV ONE (23:25)
--- NOTE | 2017-01-23 23:35 | XRAY Preliminary Report ---
Exam: XR Chest 2 View PA/LAT IMPRESSION: 1. Minimal left basilar atelectasis or infiltrate. 2. Otherwise no acute abnormality seen. [facility] SITE ID: [id number]
--- NOTE | 2017-01-23 23:38 | XRAY Report ---
EXAM: CHEST RADIOGRAPHY EXAM DATE: 01/23/2017 11:18 PM. CLINICAL HISTORY: Fever, hypoxia. COMPARISON: 01/20/2017. TECHNIQUE: 2 views. FINDINGS: Lungs/Pleura: Minimal atelectasis or infiltrate at the left base. No pleural effusion. No pneumothora x. Mediastinum: Heart size normal to upper normal. Aortic atherosclerosis. Other: Osteopenia. Thoracolumbar scoliosis. Left-sided power port with tip in the upper SVC. IMPRESSION: 1. Minimal left basilar atelectasis or infiltrate. 2. Otherwise no acute abnormality seen. [facility] Referring Provider Line: [phone] SITE ID: [id number]
--- NOTE | 2017-01-23 23:43 | ED Physician Documentation ---
PD HPI FEVER - Stated complaint Stated Complaint: TREMORS, FEVER, MALAISE - Chief complaint Chief Complaint: General - History obtained from History obtained from: Patient, Family, EMS - History of Present Illness Timing - onset: Yesterday Timing details: Gradual onset, Still present Associated symptoms: Rigors, Dry cough. No: Urinary symptoms Contributing factors: Immunocompromised Similar symptoms before: Work up / diagnostics, Treatment, Follow up Recently seen: Emergency Dept - Additional information Additional information: Patient is a 76 year old female with a history of lung cancer who is presenting to the emergency department for hypotension, shaking and fevers. states that she has been coughing more often than usual. patient has not had chemo for the last 6 weeks. Review of Systems Constitutional: reports: Fever, Chills, Weight Loss Eyes: denies: Loss of vision, Photophobia Ears: denies: Ear pain, Drainage/discharge Throat: denies: Sore throat Cardiac: reports: Palpitations. denies: Chest pain / pressure, Calf pain Respiratory: reports: Cough, Wheezing GI: denies: Abdominal Pain, Nausea, Vomiting : denies: Dysuria, Frequency, Hesitancy Skin: denies: Rash, Lesions Neurologic: reports: Generalized weakness. denies: Focal weakness, Numbness, Difficulty speaking Psychiatric: denies: Depressed, Suicidal Immunocompromised: reports: Immunocompromised, Chemotherapy PD PAST MEDICAL HISTORY - Past Medical History Cardiovascular: Congestive heart failure, Hypertension Respiratory: Shortness of breath, Other Neuro: None Endocrine/Autoimmune: Type 2 diabetes GI: GERD, Other : None HEENT: Chronic vision loss Psych: None Musculoskeletal: Osteoarthritis, Osteoporosis, Chronic back pain Derm: None - Past Surgical History Past Surgical History: Yes General: EGD, Colonoscopy Ortho: Other HEENT: Cataracts, Tonsil/Adenoidectomy - Present Medications Home Medications: Ambulatory Orders Medication Instructions Recorded Confirmed Metoprolol Tartrate [Lopressor] 25 mg PO BID 12/11/12 12/29/16 Acetaminophen [Tylenol] 650 mg PO BID PRN 12/10/13 12/29/16 Furosemide 20 mg PO DAILY 01/10/15 12/29/16 Lidocaine Patch 5% [Lidoderm Patch] 1 each TOP DAILY PRN 06/02/15 12/29/16 Cholecalciferol (Vitamin D3) 2,000 units PO DAILY 04/05/16 12/29/16 [Vitamin D3] Loperamide HCl [Imodium A-D] 2 mg PO QID PRN 04/12/16 12/29/16 Loratadine [Claritin] 10 mg PO QPM 08/30/16 12/29/16 Topotecan HCl [Hycamtin] 3 mg PO DAILY 12/30/16 12/30/16 Digoxin [Lanoxin] 125 mcg PO UD #12 tablet 01/04/17 Lisinopril [Zestril] 2.5 mg PO DAILY #30 tablet 01/04/17 Magnesium Oxide [Mag Ox] 400 mg PO DAILYWM #30 tablet 01/04/17 Potassium Chloride [K-Dur] 40 meq PO DAILY #30 tablet 01/04/17 Spironolactone [Aldactone] 25 mg PO DAILY #30 tablet 01/04/17 levoFLOXacin [Levaquin] 250 mg PO DAILY #5 tablet 01/04/17 - Allergies Allergies/Adverse Reactions: Allergies Allergy/AdvReac Type Severity Reaction Status Date / Time Sulfa (Sulfonamide Allergy Intermediate Rash Verified 01/23/17 22:25 Antibiotics) - Social History Does the pt smoke?: Yes Smoking Status: Light tobacco smoker Does the pt drink ETOH?: No Does the pt have substance abuse?: No - Immunizations Immunizations are current?: Yes - POLST Patient has POLST: No PD ED PE NORMAL - Vitals Vital signs reviewed: Yes - General General: Alert and oriented X 3 - HEENT HEENT: Atraumatic, PERRL - Neck Neck: Supple, no meningeal sign, No JVD - Abdomen Abdomen: Soft, Non tender, Non distended - Neuro Neuro: Alert and oriented X 3, No motor deficit, No sensory deficit, Normal speech - Psych Psych: Normal mood, Normal affect PD ED PE EXPANDED - General General: Alert, Other (ill appearing) - HEENT HEENT: Dry mucous membranes - Cardiac Cardiac: Tachy, Irregularly irregular - Respiratory Respiratory: Labored, Rhonchi, Right upper lobe, Right middle lobe, Left upper lobe - Abdomen Abdomen: No: Tender to palpation, Rebound, Guarding - Derm Derm: Normal color, Warm and dry, Other (poor skin turgor) Results - Vitals Vitals: Vital Signs - 24 hr 01/23/17 01/23/17 01/23/17 22:21 22:29 22:59 Temperature 37.0 C Heart Rate 158 H 143 H 123 H Respiratory 17 21 Rate Blood Pressure 118/56 L 101/58 L 85/41 L O2 Saturation 96 98 20 L Oxygen O2 Source [With Activity] Nasal cannula O2 Source [Without Activity] Room air O2 Source Nasal cannula Oxygen Flow Rate 2 - EKG (time done) 2232 Rate: Rate (enter#) (152) Rhythm: Atrial fibrillation [place]: Normal QRS: Normal Ischemia: ST depression Other comments: Other comments (a fib with rvr and rate related ischemia) Compare to prior EKG: Changed from prior EKG - Labs Labs: Laboratory Tests 01/23/17 01/23/17 01/23/17 22:50 22:50 22:50 WBC 16.7 H RBC 2.81 L Hgb 9.7 L Hct 29.3 L MCV 104.2 H MCH 34.6 H MCHC 33.2 RDW 18.2 H Plt Count 206 MPV 7.6 L Neut # 15.6 H Lymph # 0.2 L [place] # 0.8 Eos # 0.0 Baso # 0.1 Absolute Nucleated RBC 0.03 Nucleated RBCs 0.2 Sodium 134 L Potassium 4.9 Chloride 108 Carbon Dioxide 15 L Anion Gap 11.0 BUN 43 H Creatinine 1.5 H Estimated GFR (MDRD) 34 L Glucose 141 H Lactic Acid Calcium 8.1 L Total Bilirubin 0.5 AST 24 ALT 12 Alkaline Phosphatase 91 Troponin I 0.21 B-Natriuretic Peptide Total Protein 6.5 L Albumin 3.0 L Globulin 3.5 Albumin/Globulin Ratio 0.9 L Lipase 21 L Last Dose Date Last Dose Time Digoxin 01/23/17 01/23/17 01/23/17 22:50 22:50 22:50 WBC RBC Hgb Hct MCV MCH MCHC RDW Plt Count MPV Neut # Lymph # [place] # Eos # Baso # Absolute Nucleated RBC Nucleated RBCs Sodium Potassium Chloride Carbon Dioxide Anion Gap BUN Creatinine Estimated GFR (MDRD) Glucose Lactic Acid 3.1 H* Calcium Total Bilirubin AST ALT Alkaline Phosphatase Troponin I B-Natriuretic Peptide 456 H Total Protein Albumin Globulin Albumin/Globulin Ratio Lipase Last Dose Date UNK Last Dose Time UNK Digoxin 0.8 - Rads (name of study) chest x-ray Radiology: Final report received (possible infiltrate) PD MEDICAL DECISION MAKING - ED course Complexity details: reviewed old records, reviewed results, re-evaluated patient , considered differential, d/w patient, d/w family, d/w wealth management consultant ED course: Patient was seen and examined at bedside. IV access was gained and labs were drawn. patient was treated with fluid bolus. ekg was performed and showed Afib with rvr. blood cultures were drawn, chest x-ray was performed. patient was found to have a lactate of 3.7. Patient was being treated with 30 ml/kg of fluid and started on vancomycin and zosyn. Patient responded well to the fluid therapy. Patient's heart rate improved. Case was discussed with the hospitalist. Patient was admitted for further evaluation and care. Departure - Departure Disposition: 66 [facility] DC/Xfer Clinical Impression: Sepsis, Pneumonia, Atrial fibrillation Condition: Stable
[2017-01-23] MEDS ORDERED: VANCOMYCIN 1 GM VIAL ONE (23:53)
[2017-01-24] MEDS ORDERED: HYDROmorphone 1 MG/ML SYRINGE IVP PRN (00:19)
[2017-01-24] MEDS ORDERED: PROCHLORPERAZINE 10 MG/2 ML VIAL IVP PRN (00:19)
[2017-01-24] MEDS ORDERED: ZOLPIDEM 5 MG TABLET PO PRN (00:19)
[2017-01-24] MEDS ORDERED: IBUPROFEN 600 MG TABLET PO PRN (00:19)
[2017-01-24] MEDS ORDERED: oxyCODONE 5 MG TABLET PO PRN (00:19)
[2017-01-24] MEDS ORDERED: LOPERAMIDE 2 MG CAPSULE PO PRN (00:30)
[2017-01-24] MEDS ORDERED: LIDOCAINE PATCH 5% TOP PRN (00:30)
[2017-01-24 00:44] LABS: BILIRUBIN,URINE NEGATIVE (NEGATIVE); PH,URINE 5.5 PH (5.0-7.5)
[2017-01-24 00:49] LABS: UA w/ MICROSCOPIC CHARGE YES
[2017-01-24 00:58] LABS: UR CULTURE IF IND INDICATED
[2017-01-24] MEDS ORDERED: SODIUM CHLORIDE 0.9% 2,000 ML IV SCH (03:00)
[2017-01-24] MEDS: SODIUM CHLORIDE FLUSH 0.9% 10 ML SYRINGE IVP SCH ×2 (05:51→14:46)
[2017-01-24] MEDS: PIPERACILLIN/TAZOBACTAM 3.375 GM in SODIUM CHLORIDE 0.9% MINIBAG 100 ML IV SCH ×3 (05:51→17:31)
[2017-01-24 06:07] LABS: BASOPHILS # (AUTO) 0.1 10^3/uL (0.0-0.1); BASOPHILS % (AUTO) 0.4 %; HCT - HEMATOCRIT 26.3 % (37.0-47.0); HGB - HEMOGLOBIN 8.4 g/dL (12.0-16.0); LYMPHOCYTES # (AUTO) 0.4 10^3/uL (1.5-3.5); LYMPHOCYTES % (AUTO) 2.3 %; MEAN CORPUSCULAR HEMOGLOBIN 33.7 pg (27.0-31.0); MEAN CORPUSCULAR HGB CONC 32.1 g/dL (32.0-36.0); MEAN CORPUSCULAR VOLUME 105.2 fL (81.0-99.0); MEAN PLATELET VOLUME 7.6 fL (7.9-10.8); MONOCYTES # (AUTO) 0.8 10^3/uL (0.0-1.0); MONOCYTES % (AUTO) 4.8 %; NEUTROPHILS % (AUTO) 92.5 %; NUCLEATED RED BLOOD CELLS AUTO 0.1 /100WBC; RED CELL DISTRIBUTION WIDTH 18.6 % (12.0-15.0); UNCORRECTED WHITE BLOOD COUNT 17.3 x10^3/uL; WHITE BLOOD COUNT 17.3 x10^3/uL (4.8-10.8)
[2017-01-24 06:18] LABS: CALCIUM 7.3 mg/dL (8.5-10.3); CREATININE 1.3 mg/dL (0.4-1.0); MAGNESIUM 1.8 mg/dL (1.7-2.8); POTASSIUM 4.2 mmol/L (3.5-5.0)
[2017-01-24] MEDS: PANTOPRAZOLE 40 MG TABLET PO SCH ×2 (06:23→16:17)
[2017-01-24] MEDS ORDERED: [UNRECOGNIZED DRUG - OTHER] PO SCH (09:00)
[2017-01-24] MEDS: POLYETHYLENE GLYCOL 3350 17 GM PACKET PO SCH (10:51)
[2017-01-24] MEDS: METOPROLOL TARTRATE 50 MG TABLET PO SCH (10:51)
[2017-01-24] MEDS: CHOLECALCIFEROL 1,000 UNIT TABLET PO SCH (10:52)
[2017-01-24] MEDS ORDERED: GENTAMICIN 280 MG in SODIUM CHLORIDE 0.9% 100ML 100 ML IV SCH (11:00)
[2017-01-24] MEDS ORDERED: SODIUM CHLORIDE 0.9% 500 ML IV ONE (15:30)
--- NOTE | 2017-01-24 15:30 | PROVIDER PROGRESS NOTE ---
Hospitalist Cross-cover Note - Cross-Cover Note Cross-Cover Note: Patient was admitted this morning with sepsis secondary to pneumonia and UTI. She was seen and examined this morning. Blood cultures returned positive for gram-negative bacilli. Source thought to likely be UTI or pneumonia. Preliminary urine culture also showing gram-negative growth. Patient's blood pressure borderline low this morning otherwise vitals are stable and no fever. Patient's antibiotics changed from vancomycin and Zosyn to Zosyn and gentamicin. Given patient's recent history of hospitalization and chemotherapy the patient was started on dual coverage with her gram-negative bacteremia. Blood cultures will be repeated tomorrow morning. The source of bacteremia does not appear to be the patient's port therefore port will remain in.
[2017-01-24] MEDS ORDERED: METOPROLOL 5 MG/5 ML VIAL IVP ONE (18:00)
[2017-01-24] MEDS: DEXTROSE 5%-0.9% NACL 1,000 ML IV SCH ×2 (18:05→19:04)
[2017-01-24] MEDS: DIGOXIN 125 MCG TABLET PO SCH (18:14)
[2017-01-24] MEDS ORDERED: DEXTROSE 50% ABBOJECT 25 GM/50 ML SYRINGE ONE (18:25)
[2017-01-24] MEDS ORDERED: DEXTROSE 50% ABBOJECT 25 GM/50 ML SYRINGE IVP ONE (18:30)
[2017-01-24 18:51] LABS: BASOPHILS % (AUTO) 0.1 %; HCT - HEMATOCRIT 28.6 % (37.0-47.0); HGB - HEMOGLOBIN 9.1 g/dL (12.0-16.0); LYMPHOCYTES % (AUTO) 1.8 %; MEAN CORPUSCULAR HEMOGLOBIN 33.7 pg (27.0-31.0); MEAN CORPUSCULAR HGB CONC 31.8 g/dL (32.0-36.0); MEAN PLATELET VOLUME 7.6 fL (7.9-10.8); MONOCYTES % (AUTO) 3.4 %; NEUTROPHILS % (AUTO) 94.7 %; RED CELL DISTRIBUTION WIDTH 19.8 % (12.0-15.0); UNCORRECTED WHITE BLOOD COUNT 19.8 x10^3/uL; WHITE BLOOD COUNT 19.8 x10^3/uL (4.8-10.8)
[2017-01-24 18:55] LABS: BAND NEUTROPHILS % (MANUAL) 0 %
[2017-01-24 19:02] LABS: ALBUMIN/GLOBULIN RATIO 0.9 (1.0-2.2); BILIRUBIN,TOTAL 0.5 mg/dL (0.2-1.0); BUN - BLOOD UREA NITROGEN 32 mg/dL (6-20); CALCIUM 7.6 mg/dL (8.5-10.3); CARBON DIOXIDE - CO2 14 mmol/L (21-32); CHLORIDE 110 mmol/L (101-111); CREATININE 1.4 mg/dL (0.4-1.0); GFR - MDRD 36 (>89); GLUCOSE 340 mg/dL (70-100); POTASSIUM 4.7 mmol/L (3.5-5.0); SODIUM 134 mmol/L (135-145); TOTAL PROTEIN 5.6 g/dL (6.7-8.2)
[2017-01-24] MEDS: DEXAMETHASONE 4 MG/ML VIAL IVP SCH (19:04)
[2017-01-24 19:13] LABS: CALCIUM, IONIZED 1.13 mmol/L (1.15-1.33); VBG PH 7.173 (7.31-7.41)
[2017-01-24 20:16] LABS: LYMPHOCYTES % (MANUAL) 2 %; NEUTROPHILS % (MANUAL) 95 %; TOTAL CELLS COUNTED 100
[2017-01-24 20:19] LABS: NP AUTO DIFFERENTIAL? YES; NP MAN DIFFERENTIAL? NO; PLATELET ESTIMATE, MANUAL NORMAL (130-450,000) (NORMAL); PLATELET MORPHOLOGY 1+ LARGE PLATELETS (NORMAL)
[2017-01-24] MEDS: LORATADINE 10 MG TABLET PO SCH (21:18)
[2017-01-25] MEDS ORDERED: PIPERACILLIN/TAZOBACTAM 3.375 GM in SODIUM CHLORIDE 0.9% MINIBAG 100 ML IV SCH ×2
[2017-01-25] MEDS ORDERED: VANCOMYCIN PER PHARMACY 1 GM in SODIUM CHLORIDE 0.9% 250 ML IV SCH ×2
[2017-01-25] MEDS: PIPERACILLIN/TAZOBACTAM 3.375 GM in SODIUM CHLORIDE 0.9% MINIBAG 100 ML IV SCH ×5 (00:14→23:54)
[2017-01-25] MEDS: SODIUM CHLORIDE FLUSH 0.9% 10 ML SYRINGE IVP SCH ×4 (00:16→23:14)
[2017-01-25 06:00] LABS: HCT - HEMATOCRIT 27.3 % (37.0-47.0); HGB - HEMOGLOBIN 8.7 g/dL (12.0-16.0); LYMPHOCYTES # (AUTO) 0.4 10^3/uL (1.5-3.5); LYMPHOCYTES % (AUTO) 2.1 %; MEAN CORPUSCULAR HEMOGLOBIN 33.4 pg (27.0-31.0); MEAN CORPUSCULAR HGB CONC 31.9 g/dL (32.0-36.0); MEAN CORPUSCULAR VOLUME 104.6 fL (81.0-99.0); MEAN PLATELET VOLUME 7.8 fL (7.9-10.8); MONOCYTES # (AUTO) 0.4 10^3/uL (0.0-1.0); MONOCYTES % (AUTO) 2.4 %; NEUTROPHILS # (AUTO) 17.3 10^3/uL (1.5-6.6); NEUTROPHILS % (AUTO) 95.5 %; NUCLEATED RED BLOOD CELLS AUTO 0.1 /100WBC; RED BLOOD COUNT 2.61 10^6/uL (4.20-5.40); RED CELL DISTRIBUTION WIDTH 18.8 % (12.0-15.0); UNCORRECTED WHITE BLOOD COUNT 18.1 x10^3/uL; WHITE BLOOD COUNT 18.1 x10^3/uL (4.8-10.8)
[2017-01-25] MEDS ORDERED: SODIUM CHLORIDE 0.9% 100ML 100 ML IV ONE (06:01)
[2017-01-25 06:03] LABS: ALBUMIN/GLOBULIN RATIO 0.9 (1.0-2.2); BILIRUBIN,TOTAL 0.4 mg/dL (0.2-1.0); CALCIUM 7.9 mg/dL (8.5-10.3); CREATININE 1.1 mg/dL (0.4-1.0); MAGNESIUM 1.6 mg/dL (1.7-2.8); PHOSPHORUS 2.7 mg/dL (2.5-4.6); POTASSIUM 4.3 mmol/L (3.5-5.0); TOTAL PROTEIN 5.4 g/dL (6.7-8.2)
[2017-01-25 06:04] LABS: INR 1.2 (0.8-1.2); PT - PROTHROMBIN TIME 13.1 secs (9.9-12.6)
[2017-01-25] MEDS: MAGNESIUM OXIDE 400 MG TABLET PO SCH ×2 (06:58→13:09)
[2017-01-25] MEDS: PANTOPRAZOLE 40 MG TABLET PO SCH ×2 (06:58→15:51)
[2017-01-25] MEDS: POLYETHYLENE GLYCOL 3350 17 GM PACKET PO SCH (07:28)
[2017-01-25] MEDS: METOPROLOL TARTRATE 50 MG TABLET PO SCH ×3 (08:14→21:23)
[2017-01-25] MEDS: DEXAMETHASONE 4 MG/ML VIAL IVP SCH ×2 (08:14→21:28)
[2017-01-25] MEDS: CHOLECALCIFEROL 1,000 UNIT TABLET PO SCH (08:14)
[2017-01-25] MEDS: DEXTROSE 5%-0.9% NACL 1,000 ML IV SCH (15:53)
--- NOTE | 2017-01-25 16:31 | PROVIDER PROGRESS NOTE ---
Assessment/Plan - Problem List (1) Sepsis Assessment/Plan: Patient presented to the ER with tachycardia, tachypnic, boderline hypotensive with leukocytosis of 16.7 and acute kidney injury Source initially thought to be urinary and respiratory patient placed on broad spectrum abx with vanco and zosyn Patients blood cx returned showing showing gram negative bacilli with urine growing the same and CXR not impressive therefore source thought to be urinary Patient initially admitted to med/surg and abx changed to zosyn and gentamycin for double gram negative coverage given patients recent hospitalization and immuno-compromised state Patient had worsening sepsis with tachycardia, worsening WBC up to 19.8, lactic acidosis up to 3.1 and hypoglycemia Patient moved to ICU Today patient is improving with stable vital signs Lactic acid normalized WBC improved down to 18.1 Patient looks better Continue IV zosyn and gentamycin Awaiting blood and urine cx susceptibilities Repeat blood cx Improving (2) Bacteremia Assessment/Plan: Likely source appears to be Urine Urine growing E coli susceptibilities still pending Blood cx growing gram negative bacilli Repeat blood cx ordered Will not remove port a cath as it does not appear to be source of bacteremia Patient improved today No fevers, WBC improved, lactate improved Continue zosyn and gentamycin day 2 De-escalate abx once susceptibilities return Patient will need IV abx for 1-2 more days Need total of 2 weeks of abx for bacteremia (3) UTI (urinary tract infection) Qualifiers: Urinary tract infection type: acute cystitis Assessment/Plan: Source or bateremia and sepsis Urine growing ecoli Day 2 of zosyn and gentamycin COntinue abx Awating cx susceptibilities (4) Atrial fibrillation with RVR Assessment/Plan: Patient had a fib with rvr last night Now HR is improved Restarted home dose of digoxin along with metoprolol (5) DOMITILA (acute kidney injury) Assessment/Plan: Secondary to sepsis and hypotension [employer] improved from 1.5 down to 1.1 this morning Continue IVFs Monitor Avoid nephrotoix agents (6) Systolic heart failure Qualifiers: Heart failure chronicity: chronic Qualified Code(s): I50.22 - Chronic systolic (congestive) heart failure Assessment/Plan: Echo shows improved EF from 20% to 40-45% On optimal treatment with BB, dig and DENZEL Holding DENZEL due to renal failure and hypotension Gentle hydration Monitor for exacerbation (7) Hypotension Assessment/Plan: Likely secondary to sepsis Holding BP meds aside from metoprolol Given steroids IV Cortisol level normal Continue IVFs (8) Small cell lung cancer Assessment/Plan: Palliative care consult today as patient does not think she will do chemo again (9) Prophylactic use of low molecular weight heparin for venous thromboembolism (VTE) Assessment/Plan: On lovenox - Current Meds Current Meds: Current Medications Generic Name Dose Route Start Last Admin Trade Name Freq PRN Reason Stop Dose Admin Cholecalciferol 2,000 unit 01/24/17 09:00 01/25/17 08:14 Vitamin D3 PO 2,000 unit DAILY HENRIETTA Administration Dexamethasone 4 mg 01/24/17 19:00 01/25/17 08:14 Decadron IVP 4 mg BID HENRIETTA Administration Digoxin 125 mcg 01/24/17 18:00 01/24/17 18:14 Lanoxin PO 125 mcg DAILY@1800 HENRIETTA Administration Piperacillin Sod/Tazobactam 100 mls @ 200 mls/hr 01/24/17 06:00 01/25/17 11:04 Sod 3.375 gm/ Sodium Chloride IV 200 mls/hr Q6H HENRIETTA Administration Dextrose/Sodium Chloride 1,000 mls @ 50 mls/hr 01/24/17 18:00 01/25/17 15:53 D5ns IV 50 mls/hr .Q20H HENRIETTA Administration Loperamide HCl 2 mg 01/24/17 00:30 01/25/17 04:18 Imodium PO 2 mg QID PRN Administration Diarrhea Loratadine 10 mg 01/24/17 21:00 01/24/17 21:18 Claritin PO 10 mg QPM HENRIETTA Administration Metoprolol Tartrate 25 mg 01/24/17 09:00 01/25/17 08:14 Lopressor PO 25 mg BID HENRIETTA Administration Pantoprazole Sodium 40 mg 01/24/17 07:00 01/25/17 15:51 Protonix PO 40 mg BIDAC HENRIETTA Administration Polyethylene Glycol 17 gm 01/24/17 09:00 01/25/17 07:28 Miralax PO Not Given DAILY HENRIETTA Sodium Chloride 10 ml 01/24/17 06:00 01/25/17 13:09 Normal Saline Flush 0.9% IVP 10 ml Q8HR HENRIETTA Administration - Lab Result Lab results reviewed: Yes Fish Bone Diagrams: 01/25/17 05:25 01/25/17 05:25 - Diagnostic Imaging Results Diagnostic Imaging Results: Final report reviewed - Additional Planning Condition/Complexity: Guarded My Orders: My Active Orders 01/24/17 18:00 Dextrose 5%-0.9% NaCl [D5ns] 1,000 ml IV 50 mls/hr Digoxin [Lanoxin] 125 mcg PO DAILY@1800 01/24/17 18:18 Daily Weight [RC] 0600 IO [RC] Q1HR Initiate ICU Electrolyte Prot. [RC] .protocol Vital Signs [RC] Q1HR 01/24/17 19:00 Dexamethasone [Decadron] 4 mg IVP BID 01/25/17 Palliative Care Consult [CONS] Routine 01/25/17 08:11 Blood Culture [CULTURE, BLOOD #1] [RM] Routine 01/25/17 09:05 Blood Culture [CULTURE, BLOOD #2] [RM] DAILY 01/25/17 23:00 Gentamicin 280 mg Sodium Chloride 0.9% 100Ml [Normal Saline 0.9% 100Ml] 100 ml IV Q36H 01/26/17 05:00 CBC - COMP BLD CT W/AUTO DIFF [HEME] DAILYLAB COMPREHENSIVE METABOLIC PANEL [CHEM] DAILYLAB MAGNESIUM [CHEM] DAILYLAB PHOSPHORUS [CHEM] DAILYLAB PT WITH INR [COAG] DAILYLAB 01/27/17 05:00 CBC - COMP BLD CT W/AUTO DIFF [HEME] DAILYLAB COMPREHENSIVE METABOLIC PANEL [CHEM] DAILYLAB MAGNESIUM [CHEM] DAILYLAB PHOSPHORUS [CHEM] DAILYLAB PT WITH INR [COAG] DAILYLAB 01/28/17 05:00 CBC - COMP BLD CT W/AUTO DIFF [HEME] DAILYLAB COMPREHENSIVE METABOLIC PANEL [CHEM] DAILYLAB MAGNESIUM [CHEM] DAILYLAB PHOSPHORUS [CHEM] DAILYLAB PT WITH INR [COAG] DAILYLAB 01/29/17 05:00 CBC - COMP BLD CT W/AUTO DIFF [HEME] DAILYLAB COMPREHENSIVE METABOLIC PANEL [CHEM] DAILYLAB MAGNESIUM [CHEM] DAILYLAB PHOSPHORUS [CHEM] DAILYLAB PT WITH INR [COAG] DAILYLAB Consult/Specialty: Psychiatry Plan Discussed with:: Patient Time Spent: Greater than 60 minutes Subjective - Subjective Patient Reports: Other (Patient feels weak and has a poor appetite but she feels better than last night. She denies any fevers or chills. She denies any cough. She denies any chest pain.) Nursing Reports: No Complaints Objective Vital Signs: Vital Signs - 24 hr 01/24/17 01/24/17 01/24/17 17:44 18:08 18:59 Temperature 36.3 C L 37 C Heart Rate [ 119 H 126 H Brachial] Heart Rate [ 112 H Monitoring electrodes] Respiratory 18 20 Rate Blood Pressure Blood Pressure 99/68 92/63 120/65 [Right Brachial artery] O2 Saturation 94 01/24/17 01/24/17 01/24/17 19:00 20:00 20:59 Temperature 97.9 C H Heart Rate [ Brachial] Heart Rate [ 127 H 120 H 110 H Monitoring electrodes] Respiratory 18 22 18 Rate Blood Pressure Blood Pressure 90/50 L 104/59 L 91/45 L [Right Brachial artery] O2 Saturation 4 L 96 01/24/17 01/24/17 01/25/17 22:00 23:00 00:00 Temperature 36.9 C Heart Rate [ Brachial] Heart Rate [ 110 H 170 H 102 H Monitoring electrodes] Respiratory 16 24 16 Rate Blood Pressure 91/45 L Blood Pressure 91/55 L 100/73 101/66 [Right Brachial artery] O2 Saturation 97 100 100 01/25/17 01/25/17 01/25/17 01:00 02:00 03:00 Temperature Heart Rate [ Brachial] Heart Rate [ 114 H 80 121 H Monitoring electrodes] Respiratory 18 18 22 Rate Blood Pressure Blood Pressure 117/88 H 120/87 H 118/75 [Right Brachial artery] O2 Saturation 97 100 98 01/25/17 01/25/17 01/25/17 04:00 05:00 06:00 Temperature 36.7 C Heart Rate [ Brachial] Heart Rate [ 137 H 80 97 Monitoring electrodes] Respiratory 18 18 22 Rate Blood Pressure Blood Pressure 116/66 125/65 101/73 [Right Brachial artery] O2 Saturation 100 98 96 01/25/17 01/25/17 01/25/17 07:00 08:00 08:14 Temperature 36.4 C L Heart Rate [ Brachial] Heart Rate [ 93 97 Monitoring electrodes] Respiratory 18 23 Rate Blood Pressure 123/59 L Blood Pressure 122/63 108/72 [Right Brachial artery] O2 Saturation 96 100 01/25/17 01/25/17 01/25/17 09:00 10:00 11:00 Temperature 36.6 C 36.5 C Heart Rate [ Brachial] Heart Rate [ 80 72 71 Monitoring electrodes] Respiratory 16 15 14 Rate Blood Pressure Blood Pressure 108/56 L 107/88 H 102/48 L [Right Brachial artery] O2 Saturation 93 93 92 01/25/17 01/25/17 01/25/17 12:00 13:00 14:00 Temperature Heart Rate [ Brachial] Heart Rate [ 86 78 71 Monitoring electrodes] Respiratory 17 20 17 Rate Blood Pressure Blood Pressure 122/88 H 109/56 L 130/75 [Right Brachial artery] O2 Saturation 100 94 96 01/25/17 01/25/17 15:00 16:00 Temperature 36.9 C Heart Rate [ Brachial] Heart Rate [ 77 78 Monitoring electrodes] Respiratory 14 17 Rate Blood Pressure Blood Pressure 127/70 133/61 H [Right Brachial artery] O2 Saturation 94 99 Oxygen O2 Source Nasal cannula I&O (Last 24 Hrs): Intake and Output Totals x24h 01/23/17 01/24/17 01/25/17 23:59 23:59 23:59 Intake Total 2637 2360 Output Total 0 100 Balance 2637 2260 General: Alert, Oriented x3, Mild distress, Other (cachectic appearing, elderly , frail) HEENT: Atraumatic, PERRLA, EOMI, Other (dry mucus membranes) Neck: Supple, No JVD, No thyromegaly, +2 carotid pulse wo bruit, No LAD Lymphatic: no adenopathy Neuro: Alert, Non Focal, CN 2-12 Grossly Intact, Oriented Times 3 Cardiovascular: No murmurs, Other (Irregular) Respiratory: Chest non-tender, Rales (bibasilar) Abdomen: Normal bowel sounds, Soft, No tenderness, No hepatospenomegaly Extremities: No clubbing, No cyanosis, No edema, Normal pulses Skin: No rashes, No breakdown - Results Results: Laboratory Results WBC 18.1 x10^3/uL (4.8-10.8) H 01/25/17 05:25 RBC 2.61 10^6/uL (4.20-5.40) L 01/25/17 05:25 Hgb 8.7 g/dL (12.0-16.0) L 01/25/17 05:25 Hct 27.3 % (37.0-47.0) L 01/25/17 05:25 MCV 104.6 fL (81.0-99.0) H 01/25/17 05:25 MCH 33.4 pg (27.0-31.0) H 01/25/17 05:25 MCHC 31.9 g/dL (32.0-36.0) L 01/25/17 05:25 RDW 18.8 % (12.0-15.0) H 01/25/17 05:25 Plt Count 162 10^3/uL (130-450) 01/25/17 05:25 MPV 7.8 fL (7.9-10.8) L 01/25/17 05:25 Neut # 17.3 10^3/uL (1.5-6.6) H 01/25/17 05:25 Lymph # 0.4 10^3/uL (1.5-3.5) L 01/25/17 05:25 [place] # 0.4 10^3/uL (0.0-1.0) 01/25/17 05:25 Eos # 0.0 10^3/uL (0.0-0.7) 01/25/17 05:25 Baso # 0.0 10^3/uL (0.0-0.1) 01/25/17 05:25 Absolute Nucleated RBC 0.02 x10^3/uL 01/25/17 05:25 Total Counted 100 01/24/17 18:43 Band Neuts % (Manual) 0 % (0-10) 01/24/17 18:43 Neutrophils # (Manual) 18.8 10^3/uL (1.5-6.6) H 01/24/17 18:43 Lymphocytes # (Manual) 0.4 10^3/uL (1.5-3.5) L 01/24/17 18:43 Monocytes # (Manual) 0.6 10^3/uL (0.0-1.0) 01/24/17 18:43 Nucleated RBCs 0.1 /100WBC 01/25/17 05:25 Differential Comment MANUAL DIFFERENTIAL 01/24/17 18:43 Platelet Estimate NORMAL (130-450,000) (NORMAL) 01/24/17 18:43 Platelet Morphology 1+ LARGE PLATELETS (NORMAL) 01/24/17 18:43 RBC Morph Micro Appear 3+ ANISOCYTOSIS (NORMAL) 1+ MACROCYTOSIS (NORMAL) 2+ ACANTHOCYTES (NORMAL) 01/24/17 18:43 RBC Morph Micro Appear 3+ ANISOCYTOSIS (NORMAL) 1+ MACROCYTOSIS (NORMAL) 2+ ACANTHOCYTES (NORMAL) 01/24/17 18:43 RBC Morph Micro Appear 3+ ANISOCYTOSIS (NORMAL) 1+ MACROCYTOSIS (NORMAL) 2+ ACANTHOCYTES (NORMAL) 01/24/17 18:43 PT 13.1 secs (9.9-12.6) H 01/25/17 05:25 INR 1.2 (0.8-1.2) 01/25/17 05:25 VBG pH 7.173 (7.31-7.41) L 01/24/17 18:43 Ionized Calcium 1.13 mmol/L (1.15-1.33) L 01/24/17 18:43 Sodium 140 mmol/L (135-145) 01/25/17 05:25 Potassium 4.3 mmol/L (3.5-5.0) 01/25/17 05:25 Chloride 116 mmol/L (101-111) H 01/25/17 05:25 Carbon Dioxide 18 mmol/L (21-32) L 01/25/17 05:25 Anion Gap 6.0 (6-13) 01/25/17 05:25 BUN 28 mg/dL (6-20) H 01/25/17 05:25 Creatinine 1.1 mg/dL (0.4-1.0) H 01/25/17 05:25 Estimated GFR (MDRD) 48 (>89) L 01/25/17 05:25 Glucose 170 mg/dL (70-100) H 01/25/17 05:25 POC Whole Bld Glucose 70 mg/dL (70 - 100) 01/25/17 11:43 Lactic Acid 1.2 mmol/L (0.5-2.2) 01/25/17 08:11 Calcium 7.9 mg/dL (8.5-10.3) L 01/25/17 05:25 Ionized Calcium YES 01/24/17 18:43 Phosphorus 2.7 mg/dL (2.5-4.6) 01/25/17 05:25 Magnesium 1.6 mg/dL (1.7-2.8) L 01/25/17 05:25 Total Bilirubin 0.4 mg/dL (0.2-1.0) 01/25/17 05:25 AST 18 IU/L (10-42) 01/25/17 05:25 ALT 11 IU/L (10-60) 01/25/17 05:25 Alkaline Phosphatase 70 IU/L (42-121) 01/25/17 05:25 Troponin I 0.21 ng/mL (<0.49) 01/23/17 22:50 B-Natriuretic Peptide 456 pg/mL (5-100) H 01/23/17 22:50 Total Protein 5.4 g/dL (6.7-8.2) L 01/25/17 05:25 Albumin 2.5 g/dL (3.2-5.5) L 01/25/17 05:25 Globulin 2.9 g/dL (2.1-4.2) 01/25/17 05:25 Albumin/Globulin Ratio 0.9 (1.0-2.2) L 01/25/17 05:25 Lipase 21 U/L (22-51) L 01/23/17 22:50 Cortisol AM Sample 9.1 ug/dL 01/25/17 08:11 Urine Color LT. YELLOW 01/24/17 00:37 Urine Clarity CLEAR (CLEAR) 01/24/17 00:37 Urine pH 5.5 PH (5.0-7.5) 01/24/17 00:37 Ur Specific [place] 1.015 (1.002-1.030) 01/24/17 00:37 Urine Protein TRACE mg/dL (NEGATIVE) 01/24/17 00:37 Urine Glucose (UA) NEGATIVE mg/dL (NEGATIVE) 01/24/17 00:37 Urine Ketones NEGATIVE mg/dL (NEGATIVE) 01/24/17 00:37 Urine Occult Blood TRACE-LYSE (NEGATIVE) 01/24/17 00:37 Urine Nitrite NEGATIVE (NEGATIVE) 01/24/17 00:37 Urine Bilirubin NEGATIVE (NEGATIVE) 01/24/17 00:37 Urine Urobilinogen 0.2 (NORMAL) E.U./dL (NORMAL) 01/24/17 00:37 Ur Leukocyte Esterase SMALL (NEGATIVE) H 01/24/17 00:37 Urine RBC 0-5 /HPF (0-5) 01/24/17 00:37 Urine WBC 6-10 /HPF (0-5) H 01/24/17 00:37 Urine WBC Clumps PRESENT 01/24/17 00:37 Ur Squamous Epith Cells NONE SEEN (<= Few) 01/24/17 00:37 Urine Bacteria Few /HPF (None Seen) 01/24/17 00:37 Ur Microscopic Review INDICATED 01/24/17 00:37 Urine Culture Comments INDICATED 01/24/17 00:37 Last Dose Date UNK 01/24/17 22:06 Last Dose Time UNK 01/24/17 22:06 Random Gentamicin 10.0 ug/mL 01/24/17 22:06 Digoxin 0.8 ng/mL 01/23/17 22:50 Influenza A (Rapid) Negative (Negative) 01/24/17 04:16 Influenza B (Rapid) Negative (Negative) 01/24/17 04:16 Influenza Types A,B Ag - 01/24/17 04:16 - Procedures Procedures: Procedures INSERTION OF TOTALLY IMPLANTABLE VASC ACCESS DEVIC (05/21/13) PACKED CELL TRANSFUSION (01/10/15) PARTIAL HIP REPLACEMENT (01/10/15) REPLACEMENT OF LEFT LENS WITH SYNTH SUB, PERC APPROACH (08/12/15) REPLACEMENT OF RIGHT LENS WITH SYNTH SUB, PERC APPROACH (07/22/15)
[2017-01-25] MEDS: DIGOXIN 125 MCG TABLET PO SCH (17:03)
--- NOTE | 2017-01-25 17:33 | CONSULTATION NOTE ---
Palliative Care Consultation - Referral Referring Provider: Dr. Figueroa Time of Visit: [id number] Referral setting: Hospitalized patient Referral Reason: Goals of Care - Information Sources Records Reviewed: RN notes reviewed, Old records reviewed History obtained from: Patient, Family ( Juno, medical records) Exam limitations: Clinical condition (patient with some cognitive deficits noted ; but engaged in conversation) - History of Present Illness Brief History of Present Illness: This is a janis 76 year old woman who was originally diagnosed with small cell lung cancer, limited stage, treated with concurrent radiation and chemotherapy in 2013. She also received prophylactic whole brain radiation. She continued with health problems including a hip fracture after a fall which included a rehab stay in [facility], and an admit for a heart attack in 2014. 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 She was then started on oral Topotecan, unfortunately she was neutropenic and admitted to [facility] from 12/29-01/04 for septic shock needing ICU support, atrial fibrillation, systolic heart failure, Healthcare associated pneumonia, and pancytopenia. She has had her topotecan still on hold given a decline in her functional status, increased fatigue, and anorexia/weight loss. She was receiving support from [facility] [place], but still remains fragile. She presented on 01/23 after called 911, with fever, chills, atrial fib, and with sepsis again originally attributed to UTI/possible pneumonia. She presents today with some improvement in her mentation, energy, and labs but still very fragile. I am asked to meet and talk with them about the continuum of care including hospice, palliative care and defining goals. Medical/Surgical History - Past Medical History Cardiovascular: reports: Congestive heart failure, Hypertension, [place], Atrial fibrillation, Other (portacath) Respiratory: reports: Shortness of breath Neuro: reports: Other (brain irradiation with some residual deficits) GI: reports: GERD, Chronic diarrhea (improving; chemotherapy induced) : reports: None HEENT: reports: Chronic vision loss, Other (alopecia) Psych: reports: None Musculoskeletal: reports: Osteoarthritis, Osteoporosis, Fatigue, Chronic back pain Derm: reports: None - Past Surgical History General: reports: EGD, Colonoscopy Ortho: reports: Other (h) HEENT: reports: Cataracts, Tonsil/Adenoidectomy - Substance History Use: Uses substance without health or social issues: Tobacco (continues to smoke at home about 5 cigarettes a day) Family History - Family History Family History: Mother: , [place], Father: , Cancer (stomach), Brother: , Other family: Alive and Well (3 children alive and well) Medications/Allergies - Medications Active Medication List: Active Medications Cholecalciferol (Vitamin D3) 2,000 unit PO DAILY [facility] Last Admin: 01/25/17 08:14 Dose: 2,000 unit Dexamethasone (Decadron) 4 mg IVP BID [facility] Last Admin: 01/25/17 08:14 Dose: 4 mg Digoxin (Lanoxin) 125 mcg PO DAILY@1800 [facility] Last Admin: 01/25/17 17:03 Dose: 125 mcg Hydromorphone HCl (Dilaudid Inj) 1 mg IVP Q2HR PRN PRN Reason: Pain 8 to 10 Piperacillin Sod/Tazobactam (Sod 3.375 gm/ Sodium Chloride) 100 mls @ 200 mls/ hr IV Q6H [facility] Last Admin: 01/25/17 17:03 Dose: 200 mls/hr Dextrose/Sodium Chloride (D5ns) 1,000 mls @ 50 mls/hr IV .Q20H [facility] Last Admin: 01/25/17 15:53 Dose: 50 mls/hr Gentamicin Sulfate 280 mg/ (Sodium Chloride) 107 mls @ 100 mls/hr IV Q36H [facility] Ibuprofen (Motrin) 600 mg PO Q6HR PRN PRN Reason: Pain 1 to 4 Lidocaine (Lidoderm Patch) 1 patch TOP DAILY PRN PRN Reason: PAIN Loperamide HCl (Imodium) 2 mg PO QID PRN PRN Reason: Diarrhea Last Admin: 01/25/17 04:18 Dose: 2 mg Loratadine (Claritin) 10 mg PO QPM [facility] Last Admin: 01/24/17 21:18 Dose: 10 mg Metoprolol Tartrate (Lopressor) 25 mg PO BID [facility] Last Admin: 01/25/17 08:14 Dose: 25 mg Oxycodone HCl (Roxicodone) 5 mg PO Q4HR PRN PRN Reason: Pain 5 to 7 [facility] Last Admin: 09/06/17 15:51 Dose: 40 mg Polyethylene Glycol (Miralax) 17 gm PO DAILY [facility] Last Admin: 01/25/17 07:28 Dose: Not Given Prochlorperazine Edisylate (Compazine Inj) 10 mg IVP Q6HR PRN PRN Reason: Nausea / Vomiting Sodium Chloride (Normal Saline Flush 0.9%) 10 ml IVP PRN PRN PRN Reason: NEEDED PER PROVIDER ORDERS Sodium Chloride (Normal Saline Flush 0.9%) 10 ml IVP Q8HR [facility] Last Admin: 01/25/17 13:09 Dose: 10 ml Zolpidem Tartrate (Ambien) 5 mg PO QPM PRN PRN Reason: Insomnia Metoprolol Tartrate [Lopressor] 25 mg PO BID 12/11/12 Acetaminophen [Tylenol] 650 mg PO BID PRN 12/10/13 Furosemide 20 mg PO DAILY 01/10/15 Lidocaine Patch 5% [Lidoderm Patch] 1 each TOP DAILY PRN 06/02/15 Cholecalciferol (Vitamin D3) [Vitamin D3] 2,000 units PO DAILY 04/05/16 Loperamide HCl [Imodium A-D] 2 mg PO QID PRN 04/12/16 Loratadine [Claritin] 10 mg PO QPM 08/30/16 Loratadine [Loratadine] 10 mg PO DAILY 01/24/17 Potassium Chloride [Potassium Chloride] 20 meq PO DAILY 01/24/17 Spironolactone [Aldactone] 25 mg PO DAILY 01/24/17 Topotecan HCl [Hycamtin] 3 mg PO UD 01/24/17 - Allergies Allergies/Adverse Reactions: Allergies Allergy/AdvReac Type Severity Reaction Status Date / Time Sulfa (Sulfonamide Allergy Intermediate Rash Verified 01/23/17 22:25 Antibiotics) Review of Systems - Constitutional Constitutional: reports: Fatigue, Malaise, Weakness, Poor appetite, Weight loss - Eyes Eyes: reports: Vision loss, Corrective lenses Physical Examination - Vital Signs Vital Signs: Vital Signs x48h Temp Pulse Resp BP Pulse Ox 01/25/17 17:03 95 18 145/74 H 98 01/25/17 16:00 36.9 C 78 17 133/61 H 99 01/25/17 15:00 77 14 127/70 94 01/25/17 14:00 71 17 130/75 96 01/25/17 13:00 78 20 109/56 L 94 01/25/17 12:00 86 17 122/88 H 100 01/25/17 11:00 71 14 102/48 L 92 01/25/17 10:00 36.5 C 72 15 107/88 H 93 - Physical Exam General Appearance: positive: Alert, Lethargic (mild) Eyes Bilateral: positive: Normal inspection ENT: positive: Other (has dentures; no s/s of candidiasis of what observed) Neck: positive: Trachea midline Respiratory: positive: Rhonchi (upper airway; clear with cough;), Other ( diminished bases) Cardiovascular: positive: Irregularly irregular Abdomen: positive: Non-tender, No distention Skin: positive: Pallor Extremities: positive: Nml appearance, Other (hands cool to touch) Neurologic/Psychiatric: positive: Mood/affect nml, Disoriented to time, Weakness , Other (engaged and participated in exam, often deferred for history to ) Palliative Care - POLST Patient has POLST: Yes POLST Status: DNR Pain: No pain Drowsiness: Mild (1-3) Nausea: None Anxiety: None Dyspnea: Mild (1-3) Anorexia: Moderate (4-6), Weight loss Insomnia: Sleeps well Constipation: No Feelings of wellbeing/Perceived Quality of Life: Worsening Performance Status: Previous level of function prior to this episode [Ambulated some in home but needed supervision; had HH aid bathing and dependent for IADL's and some ADLs]. Current level of functioning [Patient currently mostly bedbound, needing assistance to bathroom, very weak]. Palliative Care Performance Status [40%]. - Palliative Care Discussion: Surrogate decision maker [ Juno Alamo]. Patient/Family understanding of the illness [Juno shared that Dr. Almaguer was clear from the start they were not going to be cured, it has been a tough few years with almost no breaks as when she had other health problems between recurrence and her original treatment. Discussed current status, patient and wanted to learn about hospice and palliative care, did not "want to make any decisions" until she is home. Discussed there was not need to make a decision currently, but to gather information. She refers to herself as on vacation here in the hospital, is very anxious to get home, concerned about being able to manage if she doesn' t get too much better. they have been 57 years, on [facility] for 42 year. 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 They have a granddaughter who is a HIDE DYER at the [employer] and has been helpful in navigating, and felt very supported by their physician Dr. Pagan. She often says to "I want ti to be like it was", spent some time processing that it is hard to have a "new normal" particularly as it continues to shift. acknowledges he is emotionally exhausted, has some help with [facility] but most part has to stay vigilent with her impulsivity. They do understand with her decline, chemotherapy may not be an option, and currently with her functional decline and underlying health issues, we discussed weighing benefits and burdens. They have made plans etc., have a POLST/DNAR, but have not talked between the two of them what end of life wishes for her might be. Introduced hospice team, philosophy, and support. Provided overview of palliative care as well. Provided with [facility] [place] [employer] as a reference. We agreed again, no decision needed to be made, patient anxiety noted but wants to get home and decide. But both were engaged in the conversation, asked appropriate questions, and resources provided. Results - Lab Results Lab results reviewed: Yes Fish Bones: 01/25/17 05:25 01/25/17 05:25 Lab and Imaging Results: Lab Results x24hrs 01/25/17 01/25/17 01/25/17 Range/Units 17:02 11:43 08:11 WBC (4.8-10.8) x10^3/uL RBC (4.20-5.40) 10^6/uL Hgb (12.0-16.0) g/dL Hct (37.0-47.0) % MCV (81.0-99.0) fL MCH (27.0-31.0) pg MCHC (32.0-36.0) g/dL RDW (12.0-15.0) % Plt Count (130-450) 10^3/uL MPV (7.9-10.8) fL Neut # Lymph # [place] # Eos # Baso # Absolute Nucleated RBC Total Counted Band Neuts % (Manual) (0 - 10) % Neutrophils # (Manual) (1.5-6.6) 10^3/uL Lymphocytes # (Manual) (1.5-3.5) 10^3/uL Monocytes # (Manual) (0.0-1.0) 10^3/uL Nucleated RBCs Differential Comment Platelet Estimate (NORMAL) Platelet Morphology (NORMAL) RBC Morph Micro Appear (NORMAL) PT (9.9-12.6) secs INR (0.8-1.2) VBG pH (7.31-7.41) Ionized Calcium (1.15-1.33) mmol/L Sodium (135-145) mmol/L Potassium (3.5-5.0) mmol/L Chloride (101-111) mmol/L Carbon Dioxide (21-32) mmol/L Anion Gap (6-13) BUN (6-20) mg/dL Creatinine (0.4-1.0) mg/dL Estimated GFR (MDRD) (>89) Glucose (70-100) mg/dL POC Whole Bld Glucose 137 H 70 (70 - 100) mg/dL Lactic Acid 1.2 (0.5-2.2) mmol/L Calcium (8.5-10.3) mg/dL Phosphorus (2.5-4.6) mg/dL Magnesium (1.7-2.8) mg/dL Total Bilirubin (0.2-1.0) mg/dL AST (10-42) IU/L ALT (10-60) IU/L Alkaline Phosphatase (42-121) IU/L Total Protein (6.7-8.2) g/dL Albumin (3.2-5.5) g/dL Globulin (2.1-4.2) g/dL Albumin/Globulin Ratio (1.0-2.2) Cortisol AM Sample ug/dL Last Dose Date Last Dose Time Random Gentamicin ug/mL 01/25/17 01/25/17 01/25/17 Range/Units 08:11 08:10 05:25 WBC (4.8-10.8) x10^3/uL RBC (4.20-5.40) 10^6/uL Hgb (12.0-16.0) g/dL Hct (37.0-47.0) % MCV (81.0-99.0) fL MCH (27.0-31.0) pg MCHC (32.0-36.0) g/dL RDW (12.0-15.0) % Plt Count (130-450) 10^3/uL MPV (7.9-10.8) fL Neut # Lymph # [place] # Eos # Baso # Absolute Nucleated RBC Total Counted Band Neuts % (Manual) (0 - 10) % Neutrophils # (Manual) (1.5-6.6) 10^3/uL Lymphocytes # (Manual) (1.5-3.5) 10^3/uL Monocytes # (Manual) (0.0-1.0) 10^3/uL Nucleated RBCs Differential Comment Platelet Estimate (NORMAL) Platelet Morphology (NORMAL) RBC Morph Micro Appear (NORMAL) PT (9.9-12.6) secs INR (0.8-1.2) VBG pH (7.31-7.41) Ionized Calcium (1.15-1.33) mmol/L Sodium 140 (135-145) mmol/L Potassium 4.3 (3.5-5.0) mmol/L Chloride 116 H (101-111) mmol/L Carbon Dioxide 18 L (21-32) mmol/L Anion Gap 6.0 (6-13) BUN 28 H (6-20) mg/dL Creatinine 1.1 H (0.4-1.0) mg/dL Estimated GFR (MDRD) 48 L (>89) Glucose 170 H (70-100) mg/dL POC Whole Bld Glucose 121 H (70 - 100) mg/dL Lactic Acid (0.5-2.2) mmol/L Calcium 7.9 L (8.5-10.3) mg/dL Phosphorus 2.7 (2.5-4.6) mg/dL Magnesium 1.6 L (1.7-2.8) mg/dL Total Bilirubin 0.4 (0.2-1.0) mg/dL AST 18 (10-42) IU/L ALT 11 (10-60) IU/L Alkaline Phosphatase 70 (42-121) IU/L Total Protein 5.4 L (6.7-8.2) g/dL Albumin 2.5 L (3.2-5.5) g/dL Globulin 2.9 (2.1-4.2) g/dL Albumin/Globulin Ratio 0.9 L (1.0-2.2) Cortisol AM Sample 9.1 ug/dL Last Dose Date Last Dose Time Random Gentamicin ug/mL 01/25/17 01/25/17 01/24/17 Range/Units 05:25 05:25 22:06 WBC 18.1 H (4.8-10.8) x10^3/uL RBC 2.61 L (4.20-5.40) 10^6/uL Hgb 8.7 L (12.0-16.0) g/dL Hct 27.3 L (37.0-47.0) % MCV 104.6 H (81.0-99.0) fL MCH 33.4 H (27.0-31.0) pg MCHC 31.9 L (32.0-36.0) g/dL RDW 18.8 H (12.0-15.0) % Plt Count 162 (130-450) 10^3/uL MPV 7.8 L (7.9-10.8) fL Neut # 17.3 H Lymph # 0.4 L [place] # 0.4 Eos # 0.0 Baso # 0.0 Absolute Nucleated RBC 0.02 Total Counted Band Neuts % (Manual) (0 - 10) % Neutrophils # (Manual) (1.5-6.6) 10^3/uL Lymphocytes # (Manual) (1.5-3.5) 10^3/uL Monocytes # (Manual) (0.0-1.0) 10^3/uL Nucleated RBCs 0.1 Differential Comment Platelet Estimate (NORMAL) Platelet Morphology (NORMAL) RBC Morph Micro Appear (NORMAL) PT 13.1 H (9.9-12.6) secs INR 1.2 (0.8-1.2) VBG pH (7.31-7.41) Ionized Calcium (1.15-1.33) mmol/L Sodium (135-145) mmol/L Potassium (3.5-5.0) mmol/L Chloride (101-111) mmol/L Carbon Dioxide (21-32) mmol/L Anion Gap (6-13) BUN (6-20) mg/dL Creatinine (0.4-1.0) mg/dL Estimated GFR (MDRD) (>89) Glucose (70-100) mg/dL POC Whole Bld Glucose (70 - 100) mg/dL Lactic Acid (0.5-2.2) mmol/L Calcium (8.5-10.3) mg/dL Phosphorus (2.5-4.6) mg/dL Magnesium (1.7-2.8) mg/dL Total Bilirubin (0.2-1.0) mg/dL AST (10-42) IU/L ALT (10-60) IU/L Alkaline Phosphatase (42-121) IU/L Total Protein (6.7-8.2) g/dL Albumin (3.2-5.5) g/dL Globulin (2.1-4.2) g/dL Albumin/Globulin Ratio (1.0-2.2) Cortisol AM Sample ug/dL Last Dose Date UNK Last Dose Time UNK Random Gentamicin 10.0 ug/mL 01/24/17 01/24/17 01/24/17 Range/Units 21:48 19:56 18:52 WBC (4.8-10.8) x10^3/uL RBC (4.20-5.40) 10^6/uL Hgb (12.0-16.0) g/dL Hct (37.0-47.0) % MCV (81.0-99.0) fL MCH (27.0-31.0) pg MCHC (32.0-36.0) g/dL RDW (12.0-15.0) % Plt Count (130-450) 10^3/uL MPV (7.9-10.8) fL Neut # Lymph # [place] # Eos # Baso # Absolute Nucleated RBC Total Counted Band Neuts % (Manual) (0 - 10) % Neutrophils # (Manual) (1.5-6.6) 10^3/uL Lymphocytes # (Manual) (1.5-3.5) 10^3/uL Monocytes # (Manual) (0.0-1.0) 10^3/uL Nucleated RBCs Differential Comment Platelet Estimate (NORMAL) Platelet Morphology (NORMAL) RBC Morph Micro Appear (NORMAL) PT (9.9-12.6) secs INR (0.8-1.2) VBG pH (7.31-7.41) Ionized Calcium (1.15-1.33) mmol/L Sodium (135-145) mmol/L Potassium (3.5-5.0) mmol/L Chloride (101-111) mmol/L Carbon Dioxide (21-32) mmol/L Anion Gap (6-13) BUN (6-20) mg/dL Creatinine (0.4-1.0) mg/dL Estimated GFR (MDRD) (>89) Glucose (70-100) mg/dL POC Whole Bld Glucose 133 H 179 H 138 H (70 - 100) mg/dL Lactic Acid (0.5-2.2) mmol/L Calcium (8.5-10.3) mg/dL Phosphorus (2.5-4.6) mg/dL Magnesium (1.7-2.8) mg/dL Total Bilirubin (0.2-1.0) mg/dL AST (10-42) IU/L ALT (10-60) IU/L Alkaline Phosphatase (42-121) IU/L Total Protein (6.7-8.2) g/dL Albumin (3.2-5.5) g/dL Globulin (2.1-4.2) g/dL Albumin/Globulin Ratio (1.0-2.2) Cortisol AM Sample ug/dL Last Dose Date Last Dose Time Random Gentamicin ug/mL 01/24/17 01/24/17 01/24/17 Range/Units 18:43 18:43 18:43 WBC 19.8 H (4.8-10.8) x10^3/uL RBC 2.70 L (4.20-5.40) 10^6/uL Hgb 9.1 L (12.0-16.0) g/dL Hct 28.6 L (37.0-47.0) % MCV 106.0 H (81.0-99.0) fL MCH 33.7 H (27.0-31.0) pg MCHC 31.8 L (32.0-36.0) g/dL RDW 19.8 H (12.0-15.0) % Plt Count 175 (130-450) 10^3/uL MPV 7.6 L (7.9-10.8) fL Neut # [employer] SALES REPRESENTATIVE Lymph # [employer] SALES REPRESENTATIVE [place] # [employer] SALES REPRESENTATIVE Eos # [employer] SALES REPRESENTATIVE Baso # [employer] SALES REPRESENTATIVE Absolute Nucleated RBC [employer] SALES REPRESENTATIVE Total Counted 100 Band Neuts % (Manual) 0 (0 - 10) % Neutrophils # (Manual) 18.8 H (1.5-6.6) 10^3/uL Lymphocytes # (Manual) 0.4 L (1.5-3.5) 10^3/uL Monocytes # (Manual) 0.6 (0.0-1.0) 10^3/uL Nucleated RBCs [employer] SALES REPRESENTATIVE Differential Comment MANUAL DIFFERENTIAL Platelet Estimate NORMAL (130-450,000) (NORMAL) Platelet Morphology 1+ LARGE PLATELETS (NORMAL) RBC Morph Micro Appear 2+ ACANTHOCYTES (NORMAL) PT (9.9-12.6) secs INR (0.8-1.2) VBG pH 7.173 L (7.31-7.41) Ionized Calcium 1.13 L (1.15-1.33) mmol/L Sodium (135-145) mmol/L Potassium (3.5-5.0) mmol/L Chloride (101-111) mmol/L Carbon Dioxide (21-32) mmol/L Anion Gap (6-13) BUN (6-20) mg/dL Creatinine (0.4-1.0) mg/dL Estimated GFR (MDRD) (>89) Glucose (70-100) mg/dL POC Whole Bld Glucose (70 - 100) mg/dL Lactic Acid 3.6 H* (0.5-2.2) mmol/L Calcium (8.5-10.3) mg/dL Phosphorus (2.5-4.6) mg/dL Magnesium (1.7-2.8) mg/dL Total Bilirubin (0.2-1.0) mg/dL AST (10-42) IU/L ALT (10-60) IU/L Alkaline Phosphatase (42-121) IU/L Total Protein (6.7-8.2) g/dL Albumin (3.2-5.5) g/dL Globulin (2.1-4.2) g/dL Albumin/Globulin Ratio (1.0-2.2) Cortisol AM Sample ug/dL Last Dose Date Last Dose Time Random Gentamicin ug/mL 01/24/17 01/24/17 01/24/17 Range/Units 18:43 17:48 17:42 WBC (4.8-10.8) x10^3/uL RBC (4.20-5.40) 10^6/uL Hgb (12.0-16.0) g/dL Hct (37.0-47.0) % MCV (81.0-99.0) fL MCH (27.0-31.0) pg MCHC (32.0-36.0) g/dL RDW (12.0-15.0) % Plt Count (130-450) 10^3/uL MPV (7.9-10.8) fL Neut # Lymph # [place] # Eos # Baso # Absolute Nucleated RBC Total Counted Band Neuts % (Manual) (0 - 10) % Neutrophils # (Manual) (1.5-6.6) 10^3/uL Lymphocytes # (Manual) (1.5-3.5) 10^3/uL Monocytes # (Manual) (0.0-1.0) 10^3/uL Nucleated RBCs Differential Comment Platelet Estimate (NORMAL) Platelet Morphology (NORMAL) RBC Morph Micro Appear (NORMAL) PT (9.9-12.6) secs INR (0.8-1.2) VBG pH (7.31-7.41) Ionized Calcium YES (1.15-1.33) mmol/L Sodium 134 L (135-145) mmol/L Potassium 4.7 (3.5-5.0) mmol/L Chloride 110 (101-111) mmol/L Carbon Dioxide 14 L (21-32) mmol/L Anion Gap 10.0 (6-13) BUN 32 H (6-20) mg/dL Creatinine 1.4 H (0.4-1.0) mg/dL Estimated GFR (MDRD) 36 L (>89) Glucose 340 H (70-100) mg/dL POC Whole Bld Glucose 34 L* 52 L* (70 - 100) mg/dL Lactic Acid (0.5-2.2) mmol/L Calcium 7.6 L (8.5-10.3) mg/dL Phosphorus (2.5-4.6) mg/dL Magnesium (1.7-2.8) mg/dL Total Bilirubin 0.5 (0.2-1.0) mg/dL AST 30 (10-42) IU/L ALT 12 (10-60) IU/L Alkaline Phosphatase 81 (42-121) IU/L Total Protein 5.6 L (6.7-8.2) g/dL Albumin 2.7 L (3.2-5.5) g/dL Globulin 2.9 (2.1-4.2) g/dL Albumin/Globulin Ratio 0.9 L (1.0-2.2) Cortisol AM Sample ug/dL Last Dose Date Last Dose Time Random Gentamicin ug/mL Impression and Recommendations - Palliative Care Impression: This is a 76 year old woman with recurrent/metastatic small cell lung carcinoma , recently admitted for severe sepsis for prolonged stay in December, now readmitted with recurrent sepsis off chemotherapy. She appears frail, with functional decline, and weight loss and voicing recognition that she is doing poorly, wanting to explore the continuum of care today. She is anxious to get home as this is her "safe" place, and not have any further extended "vacation" her at hospital, though recognizes she is not well enough currently to leave. Recommendations/Counseling Done: 1. Advance care planning. and patient voicing concerns about the next phase, wanting to learn more about palliative and hospice care. Information presented in the context of the continuum, not an "if" but a "when", and the support with the goal for quality of life and support for end of life. Addressed questions, anticipatory guidance provided regarding expected decline, and resources provided. Assisted in clarifying the decision regarding chemotherapy in the benefit /burden context, and that sometimes when harm outweighs benefit it may not be a choice, or can make a decision in context of supportive care as well. Prognositically if patient without further treatment, most likely weeks, base on current performance status of PPS 40%, she also is very frail with second hospitalization for sepsis and depressed immune status for this stay. She would meet hospice criteria if this aligns with goals, they do want to meet with oncologist next week, missed appointment this week. 2. Caregiver fatigue. Patient currently with [facility], providing bathing and support skillled services. They have used [facility] in past, may consider need to revisit for more respite time, family to assist with meals, and concerned about asking for more. 3. Anorexia/Weight loss. This is somewhat "normal" with her tumor burden and current functional decline. Reviewed their current strategies, given the limitations of our current pharmacologic interventions and her underlying diabetes I would not add to her "pill burden" and would recommend to simplify whatever of might not be of consequence on discharge. She reports needing to crush pills currently to tolerate swallowing. Thank you Dr. Figueroa for asking the palliative care consult service to be involved in the care of your patient. I believe we met their goals today of gathering information for the decisions ahead, have established rapport, and will check in for follow up tomorrow if further questions. Time Spent: 60 minutes greater than 50% with counseling for goals of care and advanced care planning.
[2017-01-25] MEDS ORDERED: VANCOMYCIN INJ 1 GM in SODIUM CHLORIDE 0.9% 250 ML IV SCH (18:00)
[2017-01-25] MEDS: LORATADINE 10 MG TABLET PO SCH (21:23)
[2017-01-25] MEDS ORDERED: GENTAMICIN 280 MG in SODIUM CHLORIDE 0.9% 100ML 100 ML IV SCH (23:00)
[2017-01-26] MEDS: PIPERACILLIN/TAZOBACTAM 3.375 GM in SODIUM CHLORIDE 0.9% MINIBAG 100 ML IV SCH (05:57)
[2017-01-26] MEDS: SODIUM CHLORIDE FLUSH 0.9% 10 ML SYRINGE IVP SCH ×2 (05:58→15:58)
[2017-01-26 06:08] LABS: BASOPHILS % (AUTO) 0.1 %; LYMPHOCYTES # (AUTO) 0.5 10^3/uL (1.5-3.5); LYMPHOCYTES % (AUTO) 3.1 %; MEAN CORPUSCULAR HEMOGLOBIN 33.1 pg (27.0-31.0); MEAN CORPUSCULAR HGB CONC 31.8 g/dL (32.0-36.0); MEAN CORPUSCULAR VOLUME 104.2 fL (81.0-99.0); MEAN PLATELET VOLUME 7.3 fL (7.9-10.8); MONOCYTES # (AUTO) 0.5 10^3/uL (0.0-1.0); MONOCYTES % (AUTO) 3.1 %; NEUTROPHILS # (AUTO) 13.5 10^3/uL (1.5-6.6); NEUTROPHILS % (AUTO) 93.7 %; NUCLEATED RED BLOOD CELLS AUTO 0.2 /100WBC; RED CELL DISTRIBUTION WIDTH 18.9 % (12.0-15.0); UNCORRECTED WHITE BLOOD COUNT 14.4 x10^3/uL; WHITE BLOOD COUNT 14.4 x10^3/uL (4.8-10.8)
[2017-01-26 06:17] LABS: PT - PROTHROMBIN TIME 11.8 secs (9.9-12.6)
[2017-01-26 06:18] LABS: ALBUMIN/GLOBULIN RATIO 0.8 (1.0-2.2); BILIRUBIN,TOTAL 0.2 mg/dL (0.2-1.0); CALCIUM 7.9 mg/dL (8.5-10.3); MAGNESIUM 1.6 mg/dL (1.7-2.8); PHOSPHORUS 2.6 mg/dL (2.5-4.6); POTASSIUM 4.4 mmol/L (3.5-5.0); TOTAL PROTEIN 5.2 g/dL (6.7-8.2)
[2017-01-26] MEDS: PANTOPRAZOLE 40 MG TABLET PO SCH ×2 (06:35→15:57)
[2017-01-26] MEDS: MAGNESIUM OXIDE 400 MG TABLET PO SCH (08:22)
[2017-01-26] MEDS: DEXAMETHASONE 4 MG/ML VIAL IVP SCH ×2 (08:22→20:55)
[2017-01-26] MEDS: CHOLECALCIFEROL 1,000 UNIT TABLET PO SCH (08:23)
[2017-01-26] MEDS: METOPROLOL TARTRATE 50 MG TABLET PO SCH ×2 (08:35→20:59)
[2017-01-26] MEDS: POLYETHYLENE GLYCOL 3350 17 GM PACKET PO SCH ×2 (09:00→09:07)
[2017-01-26] MEDS: ERTAPENEM 1 GM in SODIUM CHLORIDE 0.9% MINIBAG 100 ML IV SCH (09:15)
--- NOTE | 2017-01-26 13:52 | PROVIDER PROGRESS NOTE ---
Assessment/Plan - Problem List (1) Sepsis Assessment/Plan: Patient presented to the ER with tachycardia, tachypnic, boderline hypotensive with leukocytosis of 16.7 and acute kidney injury Patients blood cx returned showing showing ESBL ecoli with urine growing the same and CXR not impressive therefore source thought to be urinary Patient initially admitted to med/surg and abx changed to zosyn and gentamycin for double gram negative coverage given patients recent hospitalization and immuno-compromised state Patient had worsening sepsis with tachycardia, worsening WBC up to 19.8, lactic acidosis up to 3.1 and hypoglycemia Patient moved to ICU Today patient continues to improve with stable vital signs and was changed to med/surg status yesterday Lactic acid normalized WBC improved down to 14.4 Patient looks better Blood culture growing ESBL Ecoli Will stop zosyn and gentamycin and switch to ertapenum day 1 Will need 2 weeks of IV ertapenum patient already has a Port for access (2) Bacteremia Assessment/Plan: Likely source appears to be Urine Urine growing ESBL E coli susceptible to Ertapenum Blood cx growing ESBL e coli Repeat blood cx positive will do another set today Will not remove port a cath as it does not appear to be source of bacteremia Patient improving No fevers, WBC improved, lactate improved Stop zosyn and gentamycin after day 2 and start Ertapenum day 1 Patient will need IV abx 2 weeks to treat ESBL bacteremia (3) UTI (urinary tract infection) Qualifiers: Urinary tract infection type: acute cystitis Assessment/Plan: Source or bateremia and sepsis Urine growing ESBL ecoli Day 2 of zosyn and gentamycin will stop and start Ertapenum today will continue for 2 weeks (4) Atrial fibrillation with RVR Assessment/Plan: HR stable on metoprolol and digoxin (5) DOMITILA (acute kidney injury) Assessment/Plan: Secondary to sepsis and 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.0 Continue IVFs Monitor Avoid nephrotoix agents Resolved (6) Systolic heart failure Qualifiers: Heart failure chronicity: chronic Qualified Code(s): I50.22 - Chronic systolic (congestive) heart failure Assessment/Plan: Echo shows improved EF from 20% to 50-55% On optimal treatment with BB, dig, Aldactone and DENZEL Restart DENZEL today as renal failure and hypotension have resolved Gentle hydration Monitor for exacerbation (7) Hypotension Assessment/Plan: Resolved with IVFs and IV steroids Likely secondary to sepsis Will restart home meds Continue IV steroids for 1-2 more days (8) Small cell lung cancer Assessment/Plan: Palliative care consult yesterday Patient is DNR/DNI Would like to meet with palliative care further after hospitalization to consider hospice care (9) Prophylactic use of low molecular weight heparin for venous thromboembolism (VTE) Assessment/Plan: On lovenox - Current Meds Current Meds: Current Medications Generic Name Dose Route Start Last Admin Trade Name Freq PRN Reason Stop Dose Admin Cholecalciferol 2,000 unit 01/24/17 09:00 01/26/17 08:23 Vitamin D3 PO 2,000 unit DAILY HENRIETTA Administration Dexamethasone 4 mg 01/24/17 19:00 01/26/17 08:22 Decadron IVP 4 mg BID HENRIETTA Administration Digoxin 125 mcg 01/24/17 18:00 01/25/17 17:03 Lanoxin PO 125 mcg DAILY@1800 HENRIETTA Administration Dextrose/Sodium Chloride 1,000 mls @ 50 mls/hr 01/24/17 18:00 01/25/17 15:53 D5ns IV 50 mls/hr .Q20H HENRIETTA Administration Ertapenem 1 gm/ Sodium 100 mls @ 200 mls/hr 01/26/17 09:00 01/26/17 09:15 Chloride IV 200 mls/hr DAILY HENRIETTA Administration Loperamide HCl 2 mg 01/24/17 00:30 01/25/17 04:18 Imodium PO 2 mg QID PRN Administration Diarrhea Loratadine 10 mg 01/24/17 21:00 01/25/17 21:23 Claritin PO 10 mg QPM HENRIETTA Administration Magnesium Oxide 400 mg 01/26/17 08:00 01/26/17 08:22 Mag Ox PO 400 mg DAILYWM HENRIETTA Administration Metoprolol Tartrate 25 mg 01/24/17 09:00 01/26/17 08:35 Lopressor PO 25 mg BID HENRIETTA Administration Pantoprazole Sodium 40 mg 01/24/17 07:00 01/26/17 06:35 Protonix PO 40 mg BIDAC HENRIETTA Administration Polyethylene Glycol 17 gm 01/24/17 09:00 01/26/17 09:07 Miralax PO 17 gm DAILY HENRIETTA Administration Sodium Chloride 10 ml 01/24/17 06:00 01/26/17 05:58 Normal Saline Flush 0.9% IVP 10 ml Q8HR HENRIETTA Administration - Lab Result Lab results reviewed: Yes Fish Bone Diagrams: 01/26/17 05:55 01/26/17 05:55 - Diagnostic Imaging Results Diagnostic Imaging Results: Final report reviewed - Additional Planning Condition/Complexity: Improved My Orders: My Active Orders 01/26/17 08:00 Magnesium Oxide [Mag Ox] 400 mg PO DAILYWM 01/26/17 08:04 CULTURE, BLOOD #1 [RM] Routine 01/26/17 09:00 Ertapenem [INVanz] 1 gm Sodium Chloride 0.9% Minibag [Normal Saline 0.9% Minibag] 100 ml IV DAILY 01/26/17 09:02 CULTURE, BLOOD #2 [RM] Routine 01/27/17 05:00 CBC - COMP BLD CT W/AUTO DIFF [HEME] DAILYLAB COMPREHENSIVE METABOLIC PANEL [CHEM] DAILYLAB MAGNESIUM [CHEM] DAILYLAB PHOSPHORUS [CHEM] DAILYLAB PT WITH INR [COAG] DAILYLAB 01/28/17 05:00 CBC - COMP BLD CT W/AUTO DIFF [HEME] DAILYLAB COMPREHENSIVE METABOLIC PANEL [CHEM] DAILYLAB MAGNESIUM [CHEM] DAILYLAB PHOSPHORUS [CHEM] DAILYLAB PT WITH INR [COAG] DAILYLAB 01/29/17 05:00 CBC - COMP BLD CT W/AUTO DIFF [HEME] DAILYLAB COMPREHENSIVE METABOLIC PANEL [CHEM] DAILYLAB MAGNESIUM [CHEM] DAILYLAB PHOSPHORUS [CHEM] DAILYLAB PT WITH INR [COAG] DAILYLAB Plan Discussed with:: Patient, Spouse Time Spent: 31-60 minutes Subjective - Subjective Patient Reports: Feeling Better (Patient was afebrile last night, she feels better, she denies any shortness of breath, chest pain or coughing.) Nursing Reports: No Complaints Objective Vital Signs: Vital Signs - 24 hr 01/25/17 01/25/17 01/25/17 14:00 15:00 16:00 Temperature 36.9 C Heart Rate [ 71 77 78 Monitoring electrodes] Respiratory 17 14 17 Rate Blood Pressure Blood Pressure 130/75 127/70 133/61 H [Right Brachial artery] O2 Saturation 96 94 99 01/25/17 01/25/17 01/25/17 17:03 18:00 18:59 Temperature Heart Rate [ 95 87 81 Monitoring electrodes] Respiratory 18 13 21 Rate Blood Pressure Blood Pressure 145/74 H 121/82 H 118/57 L [Right Brachial artery] O2 Saturation 98 98 100 01/25/17 01/25/17 01/26/17 19:59 21:23 04:00 Temperature 36.3 C L Heart Rate [ 86 73 Monitoring electrodes] Respiratory 22 20 Rate Blood Pressure 119/62 Blood Pressure 119/62 147/72 H [Right Brachial artery] O2 Saturation 100 100 01/26/17 08:35 Temperature Heart Rate [ Monitoring electrodes] Respiratory Rate Blood Pressure 147/72 H Blood Pressure [Right Brachial artery] O2 Saturation Oxygen O2 Source Nasal cannula I&O (Last 24 Hrs): Intake and Output Totals x24h 01/24/17 01/25/17 01/26/17 23:59 23:59 23:59 Intake Total 2637 2800 1596 Output Total 0 350 500 Balance 2637 2450 1096 General: Alert, Oriented x3, Cooperative, No acute distress, Other (Cachetic appearin, weak, frail, thin, alopecia) HEENT: Atraumatic, PERRLA, EOMI, Mucous membr. moist/pink Neck: Supple, No JVD, No thyromegaly, +2 carotid pulse wo bruit, No LAD Lymphatic: no adenopathy Neuro: Alert, Non Focal, CN 2-12 Grossly Intact, Oriented Times 3 Cardiovascular: No murmurs, Other (Irregular) Respiratory: Chest non-tender, No respiratory distress, Breath sounds nml, Rales (bases) Abdomen: Normal bowel sounds, Soft, No tenderness, No hepatospenomegaly, No masses Extremities: No clubbing, No cyanosis, No edema, Normal pulses, No tenderness/ swelling Skin: No rashes, No breakdown, No significant lesion - Results Results: Laboratory Results WBC 14.4 x10^3/uL (4.8-10.8) H 01/26/17 05:55 RBC 2.40 10^6/uL (4.20-5.40) L 01/26/17 05:55 Hgb 8.0 g/dL (12.0-16.0) L 01/26/17 05:55 Hct 25.0 % (37.0-47.0) L 01/26/17 05:55 MCV 104.2 fL (81.0-99.0) H 01/26/17 05:55 MCH 33.1 pg (27.0-31.0) H 01/26/17 05:55 MCHC 31.8 g/dL (32.0-36.0) L 01/26/17 05:55 RDW 18.9 % (12.0-15.0) H 01/26/17 05:55 Plt Count 156 10^3/uL (130-450) 01/26/17 05:55 MPV 7.3 fL (7.9-10.8) L 01/26/17 05:55 Neut # 13.5 10^3/uL (1.5-6.6) H 01/26/17 05:55 Lymph # 0.5 10^3/uL (1.5-3.5) L 01/26/17 05:55 [place] # 0.5 10^3/uL (0.0-1.0) 01/26/17 05:55 Eos # 0.0 10^3/uL (0.0-0.7) 01/26/17 05:55 Baso # 0.0 10^3/uL (0.0-0.1) 01/26/17 05:55 Absolute Nucleated RBC 0.03 x10^3/uL 01/26/17 05:55 Total Counted 100 01/24/17 18:43 Band Neuts % (Manual) 0 % (0-10) 01/24/17 18:43 Neutrophils # (Manual) 18.8 10^3/uL (1.5-6.6) H 01/24/17 18:43 Lymphocytes # (Manual) 0.4 10^3/uL (1.5-3.5) L 01/24/17 18:43 Monocytes # (Manual) 0.6 10^3/uL (0.0-1.0) 01/24/17 18:43 Nucleated RBCs 0.2 /100WBC 01/26/17 05:55 Differential Comment MANUAL DIFFERENTIAL 01/24/17 18:43 Platelet Estimate NORMAL (130-450,000) (NORMAL) 01/24/17 18:43 Platelet Morphology 1+ LARGE PLATELETS (NORMAL) 01/24/17 18:43 RBC Morph Micro Appear 3+ ANISOCYTOSIS (NORMAL) 1+ MACROCYTOSIS (NORMAL) 2+ ACANTHOCYTES (NORMAL) 01/24/17 18:43 RBC Morph Micro Appear 3+ ANISOCYTOSIS (NORMAL) 1+ MACROCYTOSIS (NORMAL) 2+ ACANTHOCYTES (NORMAL) 01/24/17 18:43 RBC Morph Micro Appear 3+ ANISOCYTOSIS (NORMAL) 1+ MACROCYTOSIS (NORMAL) 2+ ACANTHOCYTES (NORMAL) 01/24/17 18:43 PT 11.8 secs (9.9-12.6) 01/26/17 05:55 INR 1.0 (0.8-1.2) 01/26/17 05:55 VBG pH 7.173 (7.31-7.41) L 01/24/17 18:43 Ionized Calcium 1.13 mmol/L (1.15-1.33) L 01/24/17 18:43 Sodium 140 mmol/L (135-145) 01/26/17 05:55 Potassium 4.4 mmol/L (3.5-5.0) 01/26/17 05:55 Chloride 115 mmol/L (101-111) H 01/26/17 05:55 Carbon Dioxide 19 mmol/L (21-32) L 01/26/17 05:55 Anion Gap 6.0 (6-13) 01/26/17 05:55 BUN 21 mg/dL (6-20) H 01/26/17 05:55 Creatinine 1.0 mg/dL (0.4-1.0) 01/26/17 05:55 Estimated GFR (MDRD) 54 (>89) L 01/26/17 05:55 Glucose 153 mg/dL (70-100) H 01/26/17 05:55 POC Whole Bld Glucose 112 mg/dL (70 - 100) H 01/26/17 07:49 Lactic Acid 1.2 mmol/L (0.5-2.2) 01/25/17 08:11 Calcium 7.9 mg/dL (8.5-10.3) L 01/26/17 05:55 Ionized Calcium YES 01/24/17 18:43 Phosphorus 2.6 mg/dL (2.5-4.6) 01/26/17 05:55 Magnesium 1.6 mg/dL (1.7-2.8) L 01/26/17 05:55 Total Bilirubin 0.2 mg/dL (0.2-1.0) 01/26/17 05:55 AST 15 IU/L (10-42) 01/26/17 05:55 ALT 10 IU/L (10-60) 01/26/17 05:55 Alkaline Phosphatase 62 IU/L (42-121) 01/26/17 05:55 Troponin I 0.21 ng/mL (<0.49) 01/23/17 22:50 B-Natriuretic Peptide 456 pg/mL (5-100) H 01/23/17 22:50 Total Protein 5.2 g/dL (6.7-8.2) L 01/26/17 05:55 Albumin 2.3 g/dL (3.2-5.5) L 01/26/17 05:55 Globulin 2.9 g/dL (2.1-4.2) 01/26/17 05:55 Albumin/Globulin Ratio 0.8 (1.0-2.2) L 01/26/17 05:55 Lipase 21 U/L (22-51) L 01/23/17 22:50 Cortisol AM Sample 9.1 ug/dL 01/25/17 08:11 Urine Color LT. YELLOW 01/24/17 00:37 Urine Clarity CLEAR (CLEAR) 01/24/17 00:37 Urine pH 5.5 PH (5.0-7.5) 01/24/17 00:37 Ur Specific [place] 1.015 (1.002-1.030) 01/24/17 00:37 Urine Protein TRACE mg/dL (NEGATIVE) 01/24/17 00:37 Urine Glucose (UA) NEGATIVE mg/dL (NEGATIVE) 01/24/17 00:37 Urine Ketones NEGATIVE mg/dL (NEGATIVE) 01/24/17 00:37 Urine Occult Blood TRACE-LYSE (NEGATIVE) 01/24/17 00:37 Urine Nitrite NEGATIVE (NEGATIVE) 01/24/17 00:37 Urine Bilirubin NEGATIVE (NEGATIVE) 01/24/17 00:37 Urine Urobilinogen 0.2 (NORMAL) E.U./dL (NORMAL) 01/24/17 00:37 Ur Leukocyte Esterase SMALL (NEGATIVE) H 01/24/17 00:37 Urine RBC 0-5 /HPF (0-5) 01/24/17 00:37 Urine WBC 6-10 /HPF (0-5) H 01/24/17 00:37 Urine WBC Clumps PRESENT 01/24/17 00:37 Ur Squamous Epith Cells NONE SEEN (<= Few) 01/24/17 00:37 Urine Bacteria Few /HPF (None Seen) 01/24/17 00:37 Ur Microscopic Review INDICATED 01/24/17 00:37 Urine Culture Comments INDICATED 01/24/17 00:37 Last Dose Date UNK 01/24/17 22:06 Last Dose Time UNK 01/24/17 22:06 Random Gentamicin 10.0 ug/mL 01/24/17 22:06 Digoxin 0.8 ng/mL 01/23/17 22:50 Influenza A (Rapid) Negative (Negative) 01/24/17 04:16 Influenza B (Rapid) Negative (Negative) 01/24/17 04:16 Influenza Types A,B Ag - 01/24/17 04:16 - Procedures Procedures: Procedures INSERTION OF TOTALLY IMPLANTABLE VASC ACCESS DEVIC (05/21/13) PACKED CELL TRANSFUSION (01/10/15) PARTIAL HIP REPLACEMENT (01/10/15) REPLACEMENT OF LEFT LENS WITH SYNTH SUB, PERC APPROACH (08/12/15) REPLACEMENT OF RIGHT LENS WITH SYNTH SUB, PERC APPROACH (07/22/15)
[2017-01-26] MEDS: DEXTROSE 5%-0.9% NACL 1,000 ML IV SCH (15:58)
[2017-01-26] MEDS: DIGOXIN 125 MCG TABLET PO SCH (18:13)
[2017-01-26] MEDS: LORATADINE 10 MG TABLET PO SCH (20:56)
[2017-01-27] MEDS: SODIUM CHLORIDE FLUSH 0.9% 10 ML SYRINGE IVP SCH ×4 (04:57→20:38)
[2017-01-27] MEDS: SODIUM CHLORIDE FLUSH 0.9% 10 ML SYRINGE IVP PRN (04:58)
[2017-01-27 05:14] LABS: BASOPHILS % (AUTO) 0.1 %; HCT - HEMATOCRIT 24.5 % (37.0-47.0); HGB - HEMOGLOBIN 7.9 g/dL (12.0-16.0); LYMPHOCYTES % (AUTO) 3.9 %; MEAN CORPUSCULAR HEMOGLOBIN 33.3 pg (27.0-31.0); MEAN CORPUSCULAR HGB CONC 32.2 g/dL (32.0-36.0); MEAN CORPUSCULAR VOLUME 103.3 fL (81.0-99.0); MEAN PLATELET VOLUME 7.1 fL (7.9-10.8); MONOCYTES % (AUTO) 3.5 %; NEUTROPHILS % (AUTO) 92.5 %; RED BLOOD COUNT 2.37 10^6/uL (4.20-5.40); RED CELL DISTRIBUTION WIDTH 17.9 % (12.0-15.0); UNCORRECTED WHITE BLOOD COUNT 13.1 x10^3/uL; WHITE BLOOD COUNT 13.1 x10^3/uL (4.8-10.8)
[2017-01-27 05:21] LABS: ALBUMIN/GLOBULIN RATIO 0.8 (1.0-2.2); BILIRUBIN,TOTAL < 0.2 mg/dL (0.2-1.0); BUN - BLOOD UREA NITROGEN 15 mg/dL (6-20); CALCIUM 7.9 mg/dL (8.5-10.3); CARBON DIOXIDE - CO2 22 mmol/L (21-32); CHLORIDE 113 mmol/L (101-111); CREATININE 0.9 mg/dL (0.4-1.0); GFR - MDRD 61 (>89); GLUCOSE 144 mg/dL (70-100); MAGNESIUM 1.5 mg/dL (1.7-2.8); PHOSPHORUS 2.1 mg/dL (2.5-4.6); POTASSIUM 3.9 mmol/L (3.5-5.0); SODIUM 139 mmol/L (135-145); TOTAL PROTEIN 5.2 g/dL (6.7-8.2)
[2017-01-27 05:33] LABS: INR 1.1 (0.8-1.2); PT - PROTHROMBIN TIME 12.4 secs (9.9-12.6)
[2017-01-27 06:19] LABS: BAND NEUTROPHILS % (MANUAL) 4 %; LYMPHOCYTES % (MANUAL) 3 %; NEUTROPHILS % (MANUAL) 91 %; NP AUTO DIFFERENTIAL? YES; NP MAN DIFFERENTIAL? NO; PLATELET ESTIMATE, MANUAL NORMAL (130-450,000) (NORMAL); TOTAL CELLS COUNTED 100
[2017-01-27] MEDS: ERTAPENEM 1 GM in SODIUM CHLORIDE 0.9% MINIBAG 100 ML IV SCH (08:02)
[2017-01-27] MEDS: NEUTRA-PHOS 250 MG TABLET PO SCH ×3 (09:09→17:22)
[2017-01-27] MEDS: MAGNESIUM OXIDE 400 MG TABLET PO SCH ×2 (09:09→17:22)
[2017-01-27] MEDS: PANTOPRAZOLE 40 MG TABLET PO SCH ×2 (09:09→15:54)
[2017-01-27] MEDS: DEXAMETHASONE 4 MG/ML VIAL IVP SCH ×2 (09:10→20:48)
[2017-01-27] MEDS: CHOLECALCIFEROL 1,000 UNIT TABLET PO SCH (09:10)
[2017-01-27] MEDS: LISINOPRIL 5 MG TABLET PO SCH (09:11)
[2017-01-27] MEDS: METOPROLOL TARTRATE 50 MG TABLET PO SCH ×2 (09:11→20:38)
[2017-01-27] MEDS: SPIRONOLACTONE 25 MG TABLET PO SCH (09:12)
[2017-01-27] MEDS: POLYETHYLENE GLYCOL 3350 17 GM PACKET PO SCH (09:30)
[2017-01-27] MEDS: DEXTROSE 5%-0.9% NACL 1,000 ML IV SCH (12:33)
--- NOTE | 2017-01-27 13:26 | PROVIDER PROGRESS NOTE ---
Assessment/Plan - Problem List (1) Sepsis Assessment/Plan: Patient presented to the ER with tachycardia, tachypnic, boderline hypotensive with leukocytosis of 16.7 and acute kidney injury Patients blood cx returned showing showing ESBL ecoli with urine growing the same and CXR not impressive therefore source thought to be urinary Patient initially admitted to med/surg and abx changed to zosyn and gentamycin for double gram negative coverage given patients recent hospitalization and immuno-compromised state Patient had worsening sepsis with tachycardia, worsening WBC up to 19.8, lactic acidosis up to 3.1 and hypoglycemia Patient moved to ICU Today patient continues to feel better, her strength is improved and vitals are stable Lactic acid normalized WBC improved down to 13.1 Patient looks better Blood culture growing ESBL Ecoli - blood cx positive again from yesterday Ertapenum day 2 Will need 2 weeks of IV ertapenum patient already has a Port for access awaiting negative blood cx before discharging home (2) Bacteremia Assessment/Plan: Likely source appears to be Urine Urine growing ESBL E coli susceptible to Ertapenum Blood cx growing ESBL e coli Repeat blood cx positive last 2 days will repeat again today once negative can be discharged home Will not remove port a cath as it does not appear to be source of bacteremia Patient improving No fevers, WBC improved, lactate improved Stopped zosyn and gentamycin after day 2 and start Ertapenum day 2 Patient will need IV abx 2 weeks to treat ESBL bacteremia (3) UTI (urinary tract infection) Qualifiers: Urinary tract infection type: acute cystitis Assessment/Plan: Source or bateremia and sepsis Urine growing ESBL ecoli On Ertapenum day 2 will continue for 2 weeks (4) Atrial fibrillation with RVR Assessment/Plan: HR stable on metoprolol and digoxin (5) DOMITILA (acute kidney injury) 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 Monitor Avoid nephrotoix agents Resolved (6) Systolic heart failure Qualifiers: Heart failure chronicity: chronic Qualified Code(s): I50.22 - Chronic systolic (congestive) heart failure Assessment/Plan: Echo shows improved EF from 20% to 50-55% On optimal treatment with BB, dig, Aldactone and DENZEL Restarted DENZEL and aldactone as renal failure and hypotension have resolved Monitor for exacerbation (7) Hypotension Assessment/Plan: Resolved with IVFs and IV steroids Likely secondary to sepsis Will restart home meds Continue IV steroids for 1 more day (8) Small cell lung cancer Assessment/Plan: Palliative care consult yesterday Patient is DNR/DNI Would like to meet with palliative care further after hospitalization to consider hospice care (9) Prophylactic use of low molecular weight heparin for venous thromboembolism (VTE) Assessment/Plan: On lovenox - Current Meds Current Meds: Current Medications Generic Name Dose Route Start Last Admin Trade Name Freq PRN Reason Stop Dose Admin Cholecalciferol 2,000 unit 01/24/17 09:00 01/27/17 09:10 Vitamin D3 PO 2,000 unit DAILY HENRIETTA Administration Dexamethasone 4 mg 01/24/17 19:00 01/27/17 09:10 Decadron IVP 4 mg BID HENRIETTA Administration Digoxin 125 mcg 01/24/17 18:00 01/26/17 18:13 Lanoxin PO 125 mcg DAILY@1800 HENRIETTA Administration Dextrose/Sodium Chloride 1,000 mls @ 50 mls/hr 01/24/17 18:00 01/27/17 12:33 D5ns IV 50 mls/hr .Q20H HENRIETTA Administration Ertapenem 1 gm/ Sodium 100 mls @ 200 mls/hr 01/26/17 09:00 01/27/17 08:02 Chloride IV 200 mls/hr DAILY HENRIETTA Administration Lisinopril 2.5 mg 01/27/17 09:00 01/27/17 09:11 Zestril PO 2.5 mg DAILY HENRIETTA Administration Loperamide HCl 2 mg 01/24/17 00:30 01/25/17 04:18 Imodium PO 2 mg QID PRN Administration Diarrhea Loratadine 10 mg 01/24/17 21:00 01/26/17 20:56 Claritin PO 10 mg QPM HENRIETTA Administration Magnesium Oxide 400 mg 01/26/17 08:00 01/27/17 09:09 Mag Ox PO 400 mg DAILYWM HENRIETTA Administration Metoprolol Tartrate 25 mg 01/24/17 09:00 01/27/17 09:11 Lopressor PO 25 mg BID HENRIETTA Administration Pantoprazole Sodium 40 mg 01/24/17 07:00 01/27/17 09:09 Protonix PO 40 mg BIDAC HENRIETTA Administration Polyethylene Glycol 17 gm 01/24/17 09:00 01/27/17 09:30 Miralax PO Not Given DAILY HENRIETTA Sodium Chloride 10 ml 01/24/17 00:19 01/27/17 04:58 Normal Saline Flush 0.9% IVP 30 ml PRN PRN Administration NEEDED PER PROVIDER ORDERS Sodium Chloride 10 ml 01/24/17 06:00 01/27/17 04:58 Normal Saline Flush 0.9% IVP 10 ml Q8HR HENRIETTA Administration Sodium Phosphate 250 mg 01/27/17 08:00 01/27/17 12:25 K-Phos Neutral PO 250 mg TIDWM HENRIETTA Administration Spironolactone 25 mg 01/27/17 09:00 01/27/17 09:12 Aldactone PO 25 mg DAILY HENRIETTA Administration - Lab Result Lab results reviewed: Yes Fish Bone Diagrams: 01/27/17 05:00 01/27/17 05:00 - Diagnostic Imaging Results Diagnostic Imaging Results: Final report reviewed - Additional Planning Condition/Complexity: Improved My Orders: My Active Orders 01/27/17 Evaluate and Treat PT [PT] Routine 01/27/17 08:00 Neutra-Phos [K-Phos Neutral] 250 mg PO TIDWM 01/27/17 09:00 Lisinopril [Zestril] 2.5 mg PO DAILY Spironolactone [Aldactone] 25 mg PO DAILY 01/27/17 09:43 Blood Culture [CULTURE, BLOOD #1] [] Routine 01/27/17 10:46 Blood Culture [CULTURE, BLOOD #2] [] Routine 01/28/17 05:00 CBC - COMP BLD CT W/AUTO DIFF [HEME] DAILYLAB COMPREHENSIVE METABOLIC PANEL [CHEM] DAILYLAB MAGNESIUM [CHEM] DAILYLAB PHOSPHORUS [CHEM] DAILYLAB PT WITH INR [COAG] DAILYLAB 01/29/17 05:00 CBC - COMP BLD CT W/AUTO DIFF [HEME] DAILYLAB COMPREHENSIVE METABOLIC PANEL [CHEM] DAILYLAB MAGNESIUM [CHEM] DAILYLAB PHOSPHORUS [CHEM] DAILYLAB PT WITH INR [COAG] DAILYLAB Consult/Specialty: PT Plan Discussed with:: Patient, Spouse Time Spent: 31-60 minutes Subjective - Subjective Patient Reports: Feeling Better (Patient states she is feeling better each day and wants to go home as soon as possible. She is eating well. [place] weak but will work with PT today. She denies any fevers or chills. She denies any shortness of breath.) Nursing Reports: No Complaints Objective Vital Signs: Vital Signs - 24 hr 01/26/17 01/26/17 01/26/17 14:00 20:59 21:35 Temperature 36.4 C L Heart Rate [ 77 76 Monitoring electrodes] Respiratory 18 20 Rate Blood Pressure 149/78 H Blood Pressure 131/76 H 149/78 H [Right Brachial artery] O2 Saturation 93 94 01/27/17 01/27/17 01/27/17 05:56 08:00 09:11 Temperature 36.6 C 98.1 C H Heart Rate [ 72 76 Monitoring electrodes] Respiratory 18 14 Rate Blood Pressure 157/76 H Blood Pressure 122/66 157/61 H [Right Brachial artery] O2 Saturation 92 100 Oxygen O2 Source Room air I&O (Last 24 Hrs): Intake and Output Totals x24h 01/25/17 01/26/17 01/27/17 23:59 23:59 23:59 Intake Total 2800 2396 1375 Output Total 350 700 Balance 2450 1696 1375 General: Alert, Oriented x3, Cooperative, Other (Cachcetic appearing, frail, alopecia.) HEENT: Atraumatic, PERRLA, EOMI, Mucous membr. moist/pink Neck: Supple, No JVD, No thyromegaly, +2 carotid pulse wo bruit, No LAD Lymphatic: no adenopathy Neuro: Alert, Non Focal, CN 2-12 Grossly Intact, Oriented Times 3 Cardiovascular: No murmurs, Other (Irregularily irregular) Respiratory: Chest non-tender, No respiratory distress, Breath sounds nml, Rales (bases) Abdomen: Normal bowel sounds, Soft, No tenderness, No hepatospenomegaly, No masses Extremities: No clubbing, No cyanosis, No edema, Normal pulses Skin: No rashes, No breakdown - Results Results: Laboratory Results WBC 13.1 x10^3/uL (4.8-10.8) H 01/27/17 05:00 RBC 2.37 10^6/uL (4.20-5.40) L 01/27/17 05:00 Hgb 7.9 g/dL (12.0-16.0) L 01/27/17 05:00 Hct 24.5 % (37.0-47.0) L 01/27/17 05:00 MCV 103.3 fL (81.0-99.0) H 01/27/17 05:00 MCH 33.3 pg (27.0-31.0) H 01/27/17 05:00 MCHC 32.2 g/dL (32.0-36.0) 01/27/17 05:00 RDW 17.9 % (12.0-15.0) H 01/27/17 05:00 Plt Count 164 10^3/uL (130-450) 01/27/17 05:00 MPV 7.1 fL (7.9-10.8) L 01/27/17 05:00 Neut # Not Reportable 01/27/17 05:00 Lymph # Not Reportable 01/27/17 05:00 [place] # Not Reportable 01/27/17 05:00 Eos # Not Reportable 01/27/17 05:00 Baso # Not Reportable 01/27/17 05:00 Absolute Nucleated RBC Not Reportable 01/27/17 05:00 Total Counted 100 01/27/17 05:00 Band Neuts % (Manual) 4 % (0-10) 01/27/17 05:00 Neutrophils # (Manual) 12.4 10^3/uL (1.5-6.6) H 01/27/17 05:00 Lymphocytes # (Manual) 0.4 10^3/uL (1.5-3.5) L 01/27/17 05:00 Monocytes # (Manual) 0.3 10^3/uL (0.0-1.0) 01/27/17 05:00 Nucleated RBCs Not Reportable 01/27/17 05:00 Differential Comment MANUAL DIFFERENTIAL 01/27/17 05:00 Platelet Estimate NORMAL (130-450,000) (NORMAL) 01/27/17 05:00 Platelet Morphology 1+ LARGE PLATELETS (NORMAL) 01/24/17 18:43 RBC Morph Micro Appear 3+ ANISOCYTOSIS (NORMAL) 1+ MACROCYTOSIS (NORMAL) 2+ ACANTHOCYTES (NORMAL) 01/24/17 18:43 RBC Morph Micro Appear 3+ ANISOCYTOSIS (NORMAL) 1+ MACROCYTOSIS (NORMAL) 2+ ACANTHOCYTES (NORMAL) 01/24/17 18:43 RBC Morph Micro Appear NORMAL APPEARANCE (NORMAL) 01/27/17 05:00 PT 12.4 secs (9.9-12.6) 01/27/17 05:00 INR 1.1 (0.8-1.2) 01/27/17 05:00 VBG pH 7.173 (7.31-7.41) L 01/24/17 18:43 Ionized Calcium 1.13 mmol/L (1.15-1.33) L 01/24/17 18:43 Sodium 139 mmol/L (135-145) 01/27/17 05:00 Potassium 3.9 mmol/L (3.5-5.0) 01/27/17 05:00 Chloride 113 mmol/L (101-111) H 01/27/17 05:00 Carbon Dioxide 22 mmol/L (21-32) 01/27/17 05:00 Anion Gap 4.0 (6-13) L 01/27/17 05:00 BUN 15 mg/dL (6-20) 01/27/17 05:00 Creatinine 0.9 mg/dL (0.4-1.0) 01/27/17 05:00 Estimated GFR (MDRD) 61 (>89) L 01/27/17 05:00 Glucose 144 mg/dL (70-100) H 01/27/17 05:00 POC Whole Bld Glucose 112 mg/dL (70 - 100) H 01/26/17 07:49 Lactic Acid 1.2 mmol/L (0.5-2.2) 01/25/17 08:11 Calcium 7.9 mg/dL (8.5-10.3) L 01/27/17 05:00 Ionized Calcium YES 01/24/17 18:43 Phosphorus 2.1 mg/dL (2.5-4.6) L 01/27/17 05:00 Magnesium 1.5 mg/dL (1.7-2.8) L 01/27/17 05:00 Total Bilirubin < 0.2 mg/dL (0.2-1.0) L 01/27/17 05:00 AST 21 IU/L (10-42) 01/27/17 05:00 ALT 12 IU/L (10-60) 01/27/17 05:00 Alkaline Phosphatase 56 IU/L (42-121) 01/27/17 05:00 Troponin I 0.21 ng/mL (<0.49) 01/23/17 22:50 B-Natriuretic Peptide 456 pg/mL (5-100) H 01/23/17 22:50 Total Protein 5.2 g/dL (6.7-8.2) L 01/27/17 05:00 Albumin 2.3 g/dL (3.2-5.5) L 01/27/17 05:00 Globulin 2.9 g/dL (2.1-4.2) 01/27/17 05:00 Albumin/Globulin Ratio 0.8 (1.0-2.2) L 01/27/17 05:00 Lipase 21 U/L (22-51) L 01/23/17 22:50 Cortisol AM Sample 9.1 ug/dL 01/25/17 08:11 Urine Color LT. YELLOW 01/24/17 00:37 Urine Clarity CLEAR (CLEAR) 01/24/17 00:37 Urine pH 5.5 PH (5.0-7.5) 01/24/17 00:37 Ur Specific [place] 1.015 (1.002-1.030) 01/24/17 00:37 Urine Protein TRACE mg/dL (NEGATIVE) 01/24/17 00:37 Urine Glucose (UA) NEGATIVE mg/dL (NEGATIVE) 01/24/17 00:37 Urine Ketones NEGATIVE mg/dL (NEGATIVE) 01/24/17 00:37 Urine Occult Blood TRACE-LYSE (NEGATIVE) 01/24/17 00:37 Urine Nitrite NEGATIVE (NEGATIVE) 01/24/17 00:37 Urine Bilirubin NEGATIVE (NEGATIVE) 01/24/17 00:37 Urine Urobilinogen 0.2 (NORMAL) E.U./dL (NORMAL) 01/24/17 00:37 Ur Leukocyte Esterase SMALL (NEGATIVE) H 01/24/17 00:37 Urine RBC 0-5 /HPF (0-5) 01/24/17 00:37 Urine WBC 6-10 /HPF (0-5) H 01/24/17 00:37 Urine WBC Clumps PRESENT 01/24/17 00:37 Ur Squamous Epith Cells NONE SEEN (<= Few) 01/24/17 00:37 Urine Bacteria Few /HPF (None Seen) 01/24/17 00:37 Ur Microscopic Review INDICATED 01/24/17 00:37 Urine Culture Comments INDICATED 01/24/17 00:37 Last Dose Date UNK 01/24/17 22:06 Last Dose Time UNK 01/24/17 22:06 Random Gentamicin 10.0 ug/mL 01/24/17 22:06 Digoxin 0.8 ng/mL 01/23/17 22:50 Influenza A (Rapid) Negative (Negative) 01/24/17 04:16 Influenza B (Rapid) Negative (Negative) 01/24/17 04:16 Influenza Types A,B Ag - 01/24/17 04:16 - Procedures Procedures: Procedures INSERTION OF TOTALLY IMPLANTABLE VASC ACCESS DEVIC (05/21/13) PACKED CELL TRANSFUSION (01/10/15) PARTIAL HIP REPLACEMENT (01/10/15) REPLACEMENT OF LEFT LENS WITH SYNTH SUB, PERC APPROACH (08/12/15) REPLACEMENT OF RIGHT LENS WITH SYNTH SUB, PERC APPROACH (07/22/15)
[2017-01-27] MEDS ORDERED: CHERRY SYRUP 10 ML UDC PO ONE ×2 (14:19→15:40)
[2017-01-27] MEDS: DIGOXIN 125 MCG TABLET PO SCH (18:08)
[2017-01-27] MEDS: LORATADINE 10 MG TABLET PO SCH (20:38)
[2017-01-28 05:38] LABS: BASOPHILS % (AUTO) 0.4 %; HCT - HEMATOCRIT 25.5 % (37.0-47.0); HGB - HEMOGLOBIN 8.3 g/dL (12.0-16.0); LYMPHOCYTES % (AUTO) 6.2 %; MEAN CORPUSCULAR HEMOGLOBIN 33.3 pg (27.0-31.0); MEAN CORPUSCULAR HGB CONC 32.4 g/dL (32.0-36.0); MEAN CORPUSCULAR VOLUME 102.8 fL (81.0-99.0); MEAN PLATELET VOLUME 7.7 fL (7.9-10.8); MONOCYTES % (AUTO) 5.3 %; NEUTROPHILS % (AUTO) 88.1 %; RED BLOOD COUNT 2.49 10^6/uL (4.20-5.40); RED CELL DISTRIBUTION WIDTH 18.3 % (12.0-15.0); UNCORRECTED WHITE BLOOD COUNT 11.7 x10^3/uL; WHITE BLOOD COUNT 11.7 x10^3/uL (4.8-10.8)
[2017-01-28 05:41] LABS: BAND NEUTROPHILS % (MANUAL) 0 %
[2017-01-28 05:42] LABS: PT - PROTHROMBIN TIME 11.8 secs (9.9-12.6)
[2017-01-28 05:49] LABS: ALBUMIN/GLOBULIN RATIO 0.8 (1.0-2.2); BILIRUBIN,TOTAL 0.4 mg/dL (0.2-1.0); CALCIUM 7.8 mg/dL (8.5-10.3); CREATININE 0.8 mg/dL (0.4-1.0); MAGNESIUM 1.4 mg/dL (1.7-2.8); PHOSPHORUS 2.8 mg/dL (2.5-4.6); POTASSIUM 3.9 mmol/L (3.5-5.0); TOTAL PROTEIN 5.3 g/dL (6.7-8.2)
[2017-01-28 05:57] LABS: LYMPHOCYTES % (MANUAL) 9 %; NEUTROPHILS % (MANUAL) 79 %; NP AUTO DIFFERENTIAL? YES; NP MAN DIFFERENTIAL? NO; PLATELET ESTIMATE, MANUAL NORMAL (130-450,000) (NORMAL); TOTAL CELLS COUNTED 100
[2017-01-28] MEDS: SODIUM CHLORIDE FLUSH 0.9% 10 ML SYRINGE IVP SCH ×2 (06:28→08:46)
[2017-01-28] MEDS: PANTOPRAZOLE 40 MG TABLET PO SCH (06:30)
[2017-01-28] MEDS: NEUTRA-PHOS 250 MG TABLET PO SCH ×2 (08:44→12:15)
[2017-01-28] MEDS: CHOLECALCIFEROL 1,000 UNIT TABLET PO SCH (08:45)
[2017-01-28] MEDS: DEXAMETHASONE 4 MG/ML VIAL IVP SCH (08:45)
[2017-01-28] MEDS: SPIRONOLACTONE 25 MG TABLET PO SCH (08:45)
[2017-01-28] MEDS: LISINOPRIL 5 MG TABLET PO SCH (08:45)
[2017-01-28] MEDS: POLYETHYLENE GLYCOL 3350 17 GM PACKET PO SCH (08:46)
[2017-01-28] MEDS: METOPROLOL TARTRATE 50 MG TABLET PO SCH (08:47)
[2017-01-28] MEDS: ERTAPENEM 1 GM in SODIUM CHLORIDE 0.9% MINIBAG 100 ML IV SCH (08:47)
--- NOTE | 2017-01-28 09:22 | Discharge Plan ---
Discharge Plan Disposition: Home Health Service Condition: Stable Prescriptions: Saccharomyces Boulardii [Florastor] 250 mg PO BID #28 capsule Diet: Regular Activity Restrictions: Activity as Tolerated Shower Restrictions: No Driving Restrictions: No Assistance Devices: Walker Weight Bearing: Full Weight Additional Instructions or Follow Up instructions: You presented to the hospital with sepsis and were found to have a UTI with spread of bacteria into the blood stream. Your blood grew a very resistant bacteria called ESBL. It took several days of treatment but it is no longer growing on cultures of from your blood stream. You will however need 2 more weeks of treatment through the IV in order to completely eradicate the bacteria. You seem to be doing much better and are well enough to go home. You will need to come back to the hospital daily to receive treatment over the next 2 weeks. I am prescribing you a probiotic for while you are on the antibiotics. You will need to get lab drawn next week to make sure you do not have any adverse effects from the antibiotic please follow up with your PCP for that. I am also recommending that you stop taking your water pill lasix as your heart function has improved and you do not currently have any swelling. No Smoking: If you smoke, Please STOP! Call for help.
[2017-01-28] MEDS: SODIUM CHLORIDE FLUSH 0.9% 10 ML SYRINGE IVP PRN ×2 (09:28→13:25)
--- NOTE | 2017-01-28 10:34 | DISCHARGE SUMMARY ---
Discharge Summary Admit Date: 01/24/17 Discharge Date: 01/28/17 Discharging Provider: Christopher Figueroa MD Primary Care Provider: Patience Pagan MD Code Status: Do Not Attempt Resuscitation Condition at Discharge: Stable Discharge Disposition: 06 [facility] - DIAGNOSES Admission Diagnoses: 1. Sepsis 2. Urinary tract infection 3. Pneumonia 4. Acute kidney injury 5. Atrial fibrillation with rapid ventricular rate 6. Congestive heart failure Discharge Diagnoses with Status of Each Condition: 1. Sepsis - Resolved 2. Bacteremia with ESBL - Improving 3. Urinary tract infection with ESBL - Improving 4. Atrial fibrillation with rapid ventricular rate - Resolved 5. Acute kidney injury - Resolved 6. Systolic heart failure - Stable 7. Hypotension - Resolved 8. Small cell lung cancer - Stable 9. DVT prophylaxis - HPI History of Present Illness: Patient is a 76-year-old female with a past medical history significant for small cell lung cancer, systolic heart failure with EF of 20-25% in December 2016 , atrial fibrillation and hypertension who presented to the emergency department with a chief complaint of fever and generalized weakness. On presentation to the emergency department the patient was tachycardic, tachypneic , had borderline blood pressure and a leukocytosis of 16.7 with acute kidney injury and an elevated lactate of 3.1. She was also in atrial fibrillation with rapid ventricular rate. The patient was found to have sepsis with likely source being urinary tract infection and possible pneumonia. The patient was admitted to the medical ocasio for IV antibiotics and further evaluation. - HOSPITAL COURSE Hospital Course: The patient was admitted with sepsis and grew gram-negative bacteria in her blood. The patient was initially placed on IV Zosyn and gentamicin for double coverage for gram-negative organisms given her recent hospitalization and immunocompromise state. The patient eventually grew ESBL E. coli in her blood and urine and was therefore switched to IV ertapenem as this was the only drug to which the bacteria was susceptible. The patient's repeat blood cultures were positive on 11/05 and 01/26/17 with cultures being negative on 01/27/2017. The patient's sepsis resolved with treatment her leukocytosis improved from 19.8 down to 11.7 at discharge. The patient's lactic acid improved back to normal. The patient's kidney function also improved back to normal with IV fluids and treatment of the infection. The patient was set up for outpatient IV antibiotic therapy at the [facility]. The patient will receive 2 weeks of IV ertapenem to eradicate the ESBL bacteremia and UTI. The patient will need to have CBC and chemistry checked in 1 week and those results will be sent to her primary care physician. The patient was prescribed Florastor while she is on antibiotics. The patient had a repeat echocardiogram while she was hospitalized which showed a significant improvement in her ejection fraction from 20% to 55%. The patient was continued on optimal treatment with beta- melania, Aldactone and lisinopril for her congestive heart failure. We did stop her Lasix as she appeared to be euvolemic. The patient's atrial fibrillation was controlled with her home dose of metoprolol and digoxin and these were continued at discharge. The patient will follow up with her primary care physician and will also follow-up with her oncologist after discharge. The patient was seen by our palliative care nurse practitioner Kiara Kellogg while she was hospitalized and Kiara will continue to follow the patient as an outpatient. (1) Sepsis Assessment/Plan: Patient presented to the ER with tachycardia, tachypnic, boderline hypotensive with leukocytosis of 16.7 and acute kidney injury Patients blood cx returned showing showing ESBL ecoli with urine growing the same and CXR not impressive therefore source thought to be urinary Patient initially admitted to med/surg and abx changed to zosyn and gentamycin for double gram negative coverage given patients recent hospitalization and immuno-compromised state Patient had worsening sepsis with tachycardia, worsening WBC up to 19.8, lactic acidosis up to 3.1 and hypoglycemia Patient was moved to ICU Over the next several days patient had improvement in symptoms and sepsis resolved Lactic acid normalized WBC improved down to 11.17 Blood culture growing ESBL Ecoli - blood cx negative on 01/27/17 Ertapenum x 3 days during hospitalization Will need 2 weeks of IV ertapenum patient already has a Port for access (2) Bacteremia Assessment/Plan: Source appears to be Urine Urine growing ESBL E coli susceptible to Ertapenum Blood cx growing ESBL e coli Repeat blood cx positive x 2 days but negative from 01/27/17 Will not remove port a cath as it does not appear to be source of bacteremia Patient improving No fevers, WBC improved, lactate improved Stopped zosyn and gentamycin after day 2 and started Ertapenum x 3 days Patient will need IV abx 2 weeks to treat ESBL bacteremia set up for [facility] (3) UTI (urinary tract infection) Qualifiers: Urinary tract infection type: acute cystitis Assessment/Plan: Source or bateremia and sepsis Urine growing ESBL ecoli On Ertapenum day 2 will continue for 2 weeks (4) Atrial fibrillation with RVR Assessment/Plan: HR stable on metoprolol and digoxin Stable (5) DOMITILA (acute kidney injury) Assessment/Plan: Resolved Credit Card Interviewer improved from 1.5 down to 0.8 (6) Systolic heart failure Qualifiers: Heart failure chronicity: chronic Qualified Code(s): I50.22 - Chronic systolic (congestive) heart failure Assessment/Plan: Echo shows improved EF from 20% to 50-55% On optimal treatment with BB, dig, Aldactone and DENZEL Restarted DENZEL and aldactone as renal failure and hypotension resolved Discontinued home lasix at discharge (7) Hypotension Assessment/Plan: Resolved with IVFs and IV steroids Likely secondary to sepsis Continue home blood pressure meds at discharge (8) Small cell lung cancer Assessment/Plan: Palliative care consulted and will continue to see patient as outpatient Patient is DNR/DNI Would like to meet with palliative care further after hospitalization to consider hospice care (9) Prophylactic use of low molecular weight heparin for venous thromboembolism (VTE) Assessment/Plan: On lovenox - ALLERGIES Allergies/Adverse Reactions: Allergies Allergy/AdvReac Type Severity Reaction Status Date / Time Sulfa (Sulfonamide Allergy Intermediate Rash Verified 01/23/17 22:25 Antibiotics) - MEDICATIONS Home Medications: Ambulatory Orders Medication Instructions Recorded Confirmed Metoprolol Tartrate [Lopressor] 25 mg PO BID 12/11/12 01/24/17 Acetaminophen [Tylenol] 650 mg PO BID PRN 12/10/13 01/24/17 Lidocaine Patch 5% [Lidoderm Patch] 1 each TOP DAILY PRN 06/02/15 01/24/17 Cholecalciferol (Vitamin D3) 2,000 units PO DAILY 04/05/16 01/24/17 [Vitamin D3] Loperamide HCl [Imodium A-D] 2 mg PO QID PRN 04/12/16 01/24/17 Loratadine [Claritin] 10 mg PO QPM 08/30/16 01/24/17 Digoxin [Lanoxin] 125 mcg PO UD #12 tablet 01/04/17 01/24/17 Lisinopril [Zestril] 2.5 mg PO DAILY #30 tablet 01/04/17 01/24/17 Magnesium Oxide [Mag Ox] 400 mg PO DAILYWM #30 tablet 01/04/17 01/24/17 Loratadine 10 mg PO DAILY 01/24/17 01/24/17 Potassium Chloride 20 meq PO DAILY 01/24/17 01/24/17 Spironolactone [Aldactone] 25 mg PO DAILY 01/24/17 01/24/17 Topotecan HCl [Hycamtin] 3 mg PO UD 01/24/17 01/24/17 Saccharomyces Boulardii [Florastor] 250 mg PO BID #28 capsule 01/28/17 - PHYSICAL EXAM AT DISCHARGE General Appearance: positive: No acute distress, Alert, Other (Cachectic appears , alopecia, thin, frail) Eyes Bilateral: positive: Normal inspection, PERRL, EOMI, No lid inflammation, Conjunctivae nml, No scleral icterus ENT: positive: ENT inspection nml, Pharynx nml, No signs of dehydration. negative: Purulent nasal drainage, Pharyngeal erythema, Oral lesions Neck: positive: Nml inspection, Thyroid nml, No JVD, Trachea midline. negative : Thyromegaly, Carotid bruit, Tracheal deviation Respiratory: positive: Chest non-tender, No respiratory distress, Breath sounds nml. negative: Wheezes, Rales, Rhonchi Cardiovascular: positive: No murmur, No gallop, Irregularly irregular Peripheral Pulses: positive: 2+ Abdomen: positive: Non-tender, No organomegaly, Nml bowel sounds, No distention. negative: Guarding, Rebound, Hepatomegaly Back: positive: Nml inspection. negative: CVA tenderness (R), CVA tenderness (L ) Skin: positive: Color nml, No rash, Warm, Dry. negative: Cyanosis, Pallor Extremities: positive: Non-tender, Full ROM, Nml appearance, No pedal edema Neurologic/Psychiatric: positive: Oriented x3, CN's nml (2-12), Motor nml, Sensation nml, Mood/affect nml - LABS Result Diagrams: 01/28/17 05:25 01/28/17 05:25 Other Lab Results: Microbiology 01/27/17 10:46 Blood Blood Culture - Preliminary NO GROWTH AFTER 1 DAY 01/27/17 09:43 Blood - Right Arm Blood Culture - Preliminary NO GROWTH AFTER 1 DAY 01/26/17 08:04 Blood Blood Culture - Preliminary NO GROWTH AFTER 2 DAYS 01/26/17 09:02 Blood Blood Culture - Preliminary 01/25/17 09:05 Blood - Right Arm Blood Culture - Preliminary NO GROWTH AFTER 2 DAYS 01/25/17 08:11 Blood - Right Arm Blood Culture - Preliminary ESBL-producing E COLI 01/23/17 23:08 Blood Blood Culture - Final ESBL-producing E COLI 01/24/17 00:37 Urine,Catheterized Urine Culture - Final ESBL-producing E COLI 01/23/17 22:50 Blood Blood Culture - Final ESBL-producing E COLI 01/24/17 19:15 Nasal MRSA (PCR) - Final Laboratory Results WBC 11.7 x10^3/uL (4.8-10.8) H 01/28/17 05:25 RBC 2.49 10^6/uL (4.20-5.40) L 01/28/17 05:25 Hgb 8.3 g/dL (12.0-16.0) L 01/28/17 05:25 Hct 25.5 % (37.0-47.0) L 01/28/17 05:25 MCV 102.8 fL (81.0-99.0) H 01/28/17 05:25 MCH 33.3 pg (27.0-31.0) H 01/28/17 05:25 MCHC 32.4 g/dL (32.0-36.0) 01/28/17 05:25 RDW 18.3 % (12.0-15.0) H 01/28/17 05:25 Plt Count 214 10^3/uL (130-450) 01/28/17 05:25 MPV 7.7 fL (7.9-10.8) L 01/28/17 05:25 Neut # Not Reportable 01/28/17 05:25 Lymph # Not Reportable 01/28/17 05:25 Travis # Not Reportable 01/28/17 05:25 Eos # Not Reportable 01/28/17 05:25 Baso # Not Reportable 01/28/17 05:25 Absolute Nucleated RBC Not Reportable 01/28/17 05:25 Total Counted 100 01/28/17 05:25 Band Neuts % (Manual) 0 % (0-10) 01/28/17 05:25 Metamyelocytes % 1 % (-0) H 01/28/17 05:25 Myelocytes % 1 % (-0) H 01/28/17 05:25 Neutrophils # (Manual) 9.2 10^3/uL (1.5-6.6) H 01/28/17 05:25 Lymphocytes # (Manual) 1.1 10^3/uL (1.5-3.5) L 01/28/17 05:25 Monocytes # (Manual) 1.2 10^3/uL (0.0-1.0) H 01/28/17 05:25 Nucleated RBCs 1 % 01/28/17 05:25 Differential Comment MANUAL DIFFERENTIAL 01/28/17 05:25 Platelet Estimate NORMAL (130-450,000) (NORMAL) 01/28/17 05:25 Platelet Morphology 1+ LARGE PLATELETS (NORMAL) 01/24/17 18:43 RBC Morph Micro Appear 3+ ANISOCYTOSIS (NORMAL) 1+ MACROCYTOSIS (NORMAL) 2+ ACANTHOCYTES (NORMAL) 01/24/17 18:43 RBC Morph Micro Appear NORMAL APPEARANCE (NORMAL) 01/27/17 05:00 RBC Morph Micro Appear NORMAL APPEARANCE (NORMAL) 01/28/17 05:25 PT 11.8 secs (9.9-12.6) 01/28/17 05:25 INR 1.0 (0.8-1.2) 01/28/17 05:25 VBG pH 7.173 (7.31-7.41) L 01/24/17 18:43 Ionized Calcium 1.13 mmol/L (1.15-1.33) L 01/24/17 18:43 Sodium 136 mmol/L (135-145) 01/28/17 05:25 Potassium 3.9 mmol/L (3.5-5.0) 01/28/17 05:25 Chloride 108 mmol/L (101-111) 01/28/17 05:25 Carbon Dioxide 23 mmol/L (21-32) 01/28/17 05:25 Anion Gap 5.0 (6-13) L 01/28/17 05:25 BUN 15 mg/dL (6-20) 01/28/17 05:25 Creatinine 0.8 mg/dL (0.4-1.0) 01/28/17 05:25 Estimated GFR (MDRD) 69 (>89) L 01/28/17 05:25 Glucose 107 mg/dL (70-100) H 01/28/17 05:25 POC Whole Bld Glucose 112 mg/dL (70 - 100) H 01/26/17 07:49 Lactic Acid 1.2 mmol/L (0.5-2.2) 01/25/17 08:11 Calcium 7.8 mg/dL (8.5-10.3) L 01/28/17 05:25 Ionized Calcium YES 01/24/17 18:43 Phosphorus 2.8 mg/dL (2.5-4.6) 01/28/17 05:25 Magnesium 1.4 mg/dL (1.7-2.8) L 01/28/17 05:25 Total Bilirubin 0.4 mg/dL (0.2-1.0) 01/28/17 05:25 AST 27 IU/L (10-42) 01/28/17 05:25 ALT 18 IU/L (10-60) 01/28/17 05:25 Alkaline Phosphatase 64 IU/L (42-121) 01/28/17 05:25 Troponin I 0.21 ng/mL (<0.49) 01/23/17 22:50 B-Natriuretic Peptide 456 pg/mL (5-100) H 01/23/17 22:50 Total Protein 5.3 g/dL (6.7-8.2) L 01/28/17 05:25 Albumin 2.4 g/dL (3.2-5.5) L 01/28/17 05:25 Globulin 2.9 g/dL (2.1-4.2) 01/28/17 05:25 Albumin/Globulin Ratio 0.8 (1.0-2.2) L 01/28/17 05:25 Lipase 21 U/L (22-51) L 01/23/17 22:50 Cortisol AM Sample 9.1 ug/dL 01/25/17 08:11 Urine Color LT. YELLOW 01/24/17 00:37 Urine Clarity CLEAR (CLEAR) 01/24/17 00:37 Urine pH 5.5 PH (5.0-7.5) 01/24/17 00:37 Ur Specific [place] 1.015 (1.002-1.030) 01/24/17 00:37 Urine Protein TRACE mg/dL (NEGATIVE) 01/24/17 00:37 Urine Glucose (UA) NEGATIVE mg/dL (NEGATIVE) 01/24/17 00:37 Urine Ketones NEGATIVE mg/dL (NEGATIVE) 01/24/17 00:37 Urine Occult Blood TRACE-LYSE (NEGATIVE) 01/24/17 00:37 Urine Nitrite NEGATIVE (NEGATIVE) 01/24/17 00:37 Urine Bilirubin NEGATIVE (NEGATIVE) 01/24/17 00:37 Urine Urobilinogen 0.2 (NORMAL) E.U./dL (NORMAL) 01/24/17 00:37 Ur Leukocyte Esterase SMALL (NEGATIVE) H 01/24/17 00:37 Urine RBC 0-5 /HPF (0-5) 01/24/17 00:37 Urine WBC 6-10 /HPF (0-5) H 01/24/17 00:37 Urine WBC Clumps PRESENT 01/24/17 00:37 Ur Squamous Epith Cells NONE SEEN (<= Few) 01/24/17 00:37 Urine Bacteria Few /HPF (None Seen) 01/24/17 00:37 Ur Microscopic Review INDICATED 01/24/17 00:37 Urine Culture Comments INDICATED 01/24/17 00:37 Last Dose Date UNK 01/24/17 22:06 Last Dose Time UNK 01/24/17 22:06 Random Gentamicin 10.0 ug/mL 01/24/17 22:06 Digoxin 0.8 ng/mL 01/23/17 22:50 Influenza A (Rapid) Negative (Negative) 01/24/17 04:16 Influenza B (Rapid) Negative (Negative) 01/24/17 04:16 Influenza Types A,B Ag - 01/24/17 04:16 - DIAGNOSTIC IMAGING Diagnostic Imaging Results: Final report reviewed Diagnostic Imaging Results Comments: Chest x-ray Impression: 1. Minimal left basilar atelectasis or infiltrate. 2. Otherwise no acute abnormality seen Echocardiogram Impression: 1. Overall left ventricular systolic function is lower levels of normal with an ejection fraction of 50-55%. 2. As compared to prior echo, the ejection fraction has improved from 20-25%. - FOLLOW UP Follow Up: Patient will follow up with her primary care physician in the next week. She will undergo lab work with CBC and chemistry in 1 week to monitor her counts while she is on ertapenem. Patient will get 2 weeks of outpatient IV antibiotics with ertapenem at the [facility]. The patient will follow up with her oncologist. The patient will also be followed up by palliative care as an outpatient. - TIME SPENT Time Spent in Discharge (Minutes): 45
[2017-01-28] MEDS: MAGNESIUM OXIDE 400 MG TABLET PO SCH (11:59)
[2017-01-28 13:19] VITALS: BP 132/68
--- NOTE | 2017-02-09 12:41 | HISTORY & PHYSICAL EXAMINATION ---
DATE OF ADMISSION: 01/24/2017 HISTORY OF PRESENT ILLNESS: This is a 71-year-old white female with a history of cancer, for which shari rodney has received chemotherapy. She was admitted here approximately 3 weeks ago with fever, neutropenia following chemotherapy, septic shock with blood pressure 70/40 requiring dopamine, pressor support in the ICU and fluid resuscitation, pneumonia on chest x-ray and evidence of new cardiomyopathy with ec ho showing an EF of 20% to 25%. She was treated with IV antibiotics, fluids and pressors and also had improvement and eventual initiation of beta melania, DENZEL inhibitor, spironolactone, and Lasix. The patient presents now with a slow onset of shortness of breath that is mild and a cough that is no nproductive of sputum and fever and chills as well as weakness and poor appetite. The patient had bee n here 2 days ago in the emergency room for poor appetite and weakness and was discharged home with a diagnosis of dehydration and poor calorie intake. MEDICATIONS Currently are: 1. Lopressor 25 mg p.o. b.i.d. 2. Tylenol p.r.n. 3. Lasix 20 mg p.o. daily. 4. Lidocaine patch topically daily p.r.n. 5. Vitamin D3. 6. Imodium p.r.n. 7. Claritin every evening. 8. Hycamtin 3 mg p.o. daily. 9. Digoxin 125 mcg p.o. every other day. 10. Lisinopril 2.5 mg p.o. daily. 11. Magnesium oxide 400 mg p.o. daily. 12. Potassium chloride 40 mEq p.o. daily. 13. Spironolactone 25 mg p.o. daily. 14. Levaquin 250 mg p.o. daily. ALLERGIES: SULFA. REVIEW OF SYSTEMS: The pertinent positives or negatives are as above. The patient also has a history of type 2 diabetes only on diet control, chronic vision loss, osteoarthritis with chronic back pain. There has been no recent anginal pain, palpitations, syncope, leg edema, rash. FAMILY HISTORY: Noncontributory. SOCIAL HISTORY: The patient drinks alcohol and is a "light smoker." PHYSICAL EXAMINATION GENERAL: Examination reveals an elderly, thin white female who appears older than her age. She is in no distress. SKIN: Warm and dry. VITAL SIGNS: Blood pressure 85/40 and on repeat 90/45 after fluid administration. Her heart rate on a dmission was 123 and is now 95 in atrial fibrillation. HEENT: Unremarkable. Her mucosa is moist. NECK: No JVD at a 45 degree upright angle. No carotid bruits. CHEST: Clear lungs sounds at the anterior bases. HEART: Sounds are normal with a 2/6 systolic murmur at the lower left sternal border. There is no gal lop or heave. ABDOMEN: Soft with positive bowel sounds. EXTREMITIES: No clubbing, cyanosis or edema. LABORATORY DATA: Sodium 134, potassium 4.9, BUN 42, creatinine 1.5 (her baseline creatinine is 0.8 fr om the admission 3 weeks ago), glucose 141. Lactic acid level 3.1. BNP 456. Normal lipase. White bloo d count 16.7 with a left shift, hemoglobin 9.7, platelet count normal. Digoxin level 0.8. Urinalysis pH of 5.5, specific gravity 1.015, negative ketones and negative nitrites. CHEST X-RAY: Minimal left basilar atelectasis or infiltrate. EKG: Atrial fibrillation with a rapid rate. Diffuse nonspecific ST-T changes. IMPRESSION: Sepsis with tachycardia, fever, elevated white blood count with left shift. ASSESSMENT AND PLAN 1. The patient probably has a borderline blood pressure, chronically, but is probably low from volume depletion due to her poor diet and also being on 2 diuretics. Rule out septic shock as a reason for the low blood pressure. Put on hold the lisinopril, Lasix, and spironolactone for now. 2. Pneumonia. This is probably the source of the sepsis as the patient is immunocompromised from her chemotherapy. IV antibiotics using Zosyn and vancomycin will be started and followup of her chest x-r ay, inhaler as needed, follow her white blood count and begin supplemental oxygen. 3. Rapid atrial fibrillation. The patient is in chronic atrial fibrillation and has had rapid rates w hen she has low blood pressures previously. Continue with gentle rehydration to help the heart rate r eturn to normal and continue with her pre-hospital beta-melania. 4. History of lung cancer with chemotherapy. The patient has not had chemotherapy now in 6 weeks and has had recovery of her pancytopenia which was present 3 weeks ago on the admission. 5. Diabetes on diet only. Continue with this plan and follow glucoses. 6. Acute renal insufficiency. This is likely due to the volume depletion from poor p.o. intake and di uretics. Gentle rehydration and follow the creatinine and electrolytes will be ordered. 7. Lung cancer. The patient continues to smoke and education will be repeated regarding the importanc e of stopping. JOB #: [id number] EXT JOB #:[id number]
== END 2017-01-28 13:26 | disposition home health service (06) | DRG 872 ==
LOC: EDUNIT# → ED 22:16 → MS2 01-24 00:20 → ICU 01-24 19:12
PROVIDERS: ADMIT Internal Medicine; ATTEND Internal Medicine
DX: A41.9 Sepsis, unspecified organism (principal); J18.9 Pneumonia, unspecified organism; I48.91 Unspecified atrial fibrillation; I95.9 Hypotension, unspecified; A41.51 Sepsis due to Escherichia coli [E. coli]; I50.9 Heart failure, unspecified; E11.9 Type 2 diabetes mellitus without complications; F17.200 Nicotine dependence, unspecified, uncomplicated; N30.00 Acute cystitis without hematuria; N17.9 Acute kidney failure, unspecified; I50.22 Chronic systolic (congestive) heart failure; C34.92 Malignant neoplasm of unspecified part of left bronchus or lung; Z68.1 Body mass index [BMI] 19.9 or less, adult; R65.20 Severe sepsis without septic shock; I95.89 Other hypotension; I11.0 Hypertensive heart disease with heart failure; I48.2 Chronic atrial fibrillation; E11.649 Type 2 diabetes mellitus with hypoglycemia without coma; R63.0 Anorexia; R63.4 Abnormal weight loss; K21.9 Gastro-esophageal reflux disease without esophagitis; F17.210 Nicotine dependence, cigarettes, uncomplicated; Z16.12 Extended spectrum beta lactamase (ESBL) resistance; Z66 Do not resuscitate; I25.2 Old myocardial infarction; Z92.21 Personal history of antineoplastic chemotherapy; Z95.828 Presence of other vascular implants and grafts; Z71.6 Tobacco abuse counseling; Z92.3 Personal history of irradiation; Z74.01 Bed confinement status; C34.90 Malignant neoplasm of unspecified part of unspecified bronchus or lung; Z79.899 Other long term (current) drug therapy
CPT/HCPCS: 36415; 51701; 71020; 80048; 80053; 80162; 80170; 81001; 81003; 82330; 82533; 82947; 83605; 83690; 83735; 83880; 84100; 84484; 85025; 85610; 87040; 87086; 87150; 87275; 87276; 93005; 93308; 96361; 96365; 96368; 99222; 99284; 99285; 99406

== ENCOUNTER 2017-02-03 12:59 | Outpatient (CLI) | payer MEDICARE, OTHER ==
--- NOTE | 2017-02-06 06:36 | PROVIDER PROGRESS NOTE ---
Palliative Care Follow Up - Referral Referring Provider: Dr. Patience Pagan Time of Visit: 02/03 [id number] Referral setting: [facility] [place] Referral Reason: Small Cell Lung Cancer - Information Sources Records Reviewed: RN notes reviewed, Old records reviewed History obtained from: Patient, Family ( Juno) Exam limitations: Clinical condition (patient with moderate cognitive deficits; primary caregiver and provided of history) - History of Present Illness Update Brief HPI Update: This is a 76-year-old woman with recurrent/metastatic small cell lung cancer involving the left lower lung. She most recently was discharged from the hospital for yet another admission for sepsis, bacteremia with ESBL, and a urinary tract infection with ESBL, requiring on going antibiotic-coated for 2 weeks. Her functional status continues to decline, this is most likely multifactorial in origin. She is quite deconditioned, has had weight loss, diminished intake, and on discharge 01/28 with anemic at 25.5. As a result of her brain irradiation, patient does present with cognitive deficits, and very little insight into her current situation. Her presents today, with significant caregiver fatigue, and struggling and how best to meet both their needs. Patient does have systolic heart failure, but with improved EF confirmed on echo to 50-55%. had contacted PCP office related to patient's lower extremity edema, had restarted furosemide at 10 mg, was concerned about her continued swelling and called again today with instructions to increase to 40 mg daily her baseline issue she 20 mg a day. On examination patient's edema is 1 -2+ up to midcalf, and no crackles in her lungs. Given her weakness, dizziness, requested he continue at 10 mg through the weekend. Will evaluate her labs and further symptoms of swelling before accessing furosemide further. Social History - Living Situation Living arrangement: At home Living Situation: With spouse/s.o. (has HH from [facility]; feeling may need further and more intense support) Support System: Daughter is a nurse and he depends on her to help navigate the system. Does have HH support through [facility] Medications/Allergies - Medications Home Medications: Ambulatory Orders Medication Instructions Recorded Confirmed Metoprolol Tartrate [Lopressor] 25 mg PO BID 12/11/12 01/30/17 Acetaminophen [Tylenol] 650 mg PO BID PRN 12/10/13 01/30/17 Lidocaine Patch 5% [Lidoderm Patch] 1 each TOP DAILY PRN 06/02/15 01/30/17 Cholecalciferol (Vitamin D3) 2,000 units PO DAILY 04/05/16 01/30/17 [Vitamin D3] Loperamide HCl [Imodium A-D] 2 mg PO QID PRN 04/12/16 01/30/17 Loratadine [Claritin] 10 mg PO QPM 08/30/16 01/30/17 Digoxin [Lanoxin] 125 mcg PO UD #12 tablet 01/04/17 01/30/17 Lisinopril [Zestril] 2.5 mg PO DAILY #30 tablet 01/04/17 01/30/17 Magnesium Oxide [Mag Ox] 400 mg PO DAILYWM #30 tablet 01/04/17 01/30/17 Loratadine 10 mg PO DAILY 01/24/17 01/30/17 Potassium Chloride 20 meq PO DAILY 01/24/17 01/30/17 Spironolactone [Aldactone] 25 mg PO DAILY 01/24/17 01/30/17 Topotecan HCl [Hycamtin] 3 mg PO UD 01/24/17 01/30/17 Saccharomyces Boulardii [Florastor] 250 mg PO BID #28 capsule 01/28/17 01/30/17 Furosemide 10 mg PO DAILY 02/06/17 02/06/17 - Allergies Allergies/Adverse Reactions: Allergies Allergy/AdvReac Type Severity Reaction Status Date / Time Sulfa (Sulfonamide Allergy Intermediate Rash Verified 01/23/17 22:25 Antibiotics) Review of Systems - Constitutional Constitutional: reports: Fatigue, Weakness, Poor appetite, Weight loss - Eyes Eyes: reports: Corrective lenses - Ears, Nose & Throat Ears, Nose & Throat: reports: Hearing loss - Cardiovascular Cariovascular: reports: Edema (had called PCP, not available and told to start 40 mg Lasix today, which took this AM), Lightheadedness, Exertional dyspnea, Decr. exercise tolerance. denies: Chest pain - Respiratory Respiratory: reports: SOB with exertion. denies: SOB at rest - Gastrointestinal Gastrointestinal: reports: Poor appetite - Genitourinary Genitourinary: reports: Frequency (with furosemide), Urgency, Incontinence - Musculoskeletal Musculoskeletal: reports: Muscle weakness - Integumentary Integumentary: reports: Dryness - Neurological Neurological: reports: General weakness, Memory problems, Abnormal gait (unable to walk; using wheelchair and pivot transfers) - Psychiatric Psychiatric: reports: Anxiety. denies: Depression - Endocrine Endocrine: reports: Intolerance to cold - Hematologic/Lymphatic Hematologic/Lymphatic: reports: Recurrent infections (getting 2 weeks of AB for ESBL ecoli) - All Other Systems All Other Systems: reports: Reviewed and negative Physical Examination - Vital Signs Pulse Rate: 88 Respiratory Rate: 18 Blood Pressure: 115/60 - Physical Exam General Appearance: positive: Mild distress Eyes Bilateral: positive: Normal inspection ENT: positive: Dry mucous membranes, Other (no s/s of candidiasis at this time) Neck: positive: Trachea midline Respiratory: positive: Other (diminished in bases). negative: Wheezes, Rales, Rhonchi Cardiovascular: positive: Regular rate & rhythm Abdomen: positive: Nml bowel sounds, No distention Skin: positive: Pallor, Other (alopecia) Extremities: positive: Pedal edema (slight and pitting up to mid calf; has support hose on), Other (need max assist for transfers) Neurologic/Psychiatric: positive: Mood/affect nml, Disoriented to time, Weakness Palliative Care - POLST Patient has POLST: Yes POLST Status: DNR, Comfort Measures Pain: No pain Drowsiness: Mild (1-3) Nausea: None Anxiety: Mild (1-3) Dyspnea: Moderate (4-6) (with exertion; not at rest) Anorexia: Mild (1-3), Weight loss Insomnia: Sleeps poorly (up at night to void; has to transfer to w/c very difficult for both she and ) Constipation: No Feelings of wellbeing/Perceived Quality of Life: Worsening Performance Status: Patient unable to ambulate, needing assistance with transfers to the wheelchair , having increased trouble with weightbearing. Tolerates activity very poorly. Nighttime trips to the bathroom have impacted 's sleep. Palliative Care Performance Status [40%]. - Palliative Care Discussion: Surrogate decision maker-Juno Jacome with limited understanding of the seriousness of her current situation. and daughter have been discussing possible transition to hospice. They are awaiting input from Dr. Almaguer, and do have followup with their PCP Dr. Pagan in the upcoming week. Has been acknowledges her increasing care needs are becoming more than he can handle. In patients both functional and cognitive status continued to decline. I believe some of the struggle comes, with the realization that the patient is not going to be able to participate in this final decision making. Husbands goal, is to finish antibiotics and then come to some decisions with provider input. Impression and Recommendations - Palliative Care Impression: This is a janis 76-year-old woman with metastatic/recurrent small cell lung cancer, most recently discharged creatinine other hospitalization for sepsis. She is currently receiving antibiotics regarding her increasing multiresistant UTI with ESBL for two weeks outpatient. She presents with ongoing functional and cognitive decline, weight loss, and increased dependence on meeting her care needs. Recommendations/Counseling Done: 1. Peripheral edema. Patient does have systolic heart failure. She does present with 1-2+ pitting edema to mid calf, she does not have any crackles, and her blood pressures are running fairly hypotensive. She does have her support stockings on, and concern with patient's functional decline dizziness, and weakness, instructed to continue the furosemide at 10 mg over the weekend. Will reevaluate dosing based on labs and further symptoms. Signs and symptoms of acute on chronic failure reviewed with , he continues to track her blood pressures, unable her weight is currently. 2. Fatigue most likely multifactorial in origin. Patient is due for full labs on Monday. She was anemic on discharge with a hemoglobin of 8.3 and hematocrit 20.5. Is working with physical [facility] from [facility], recommended focusing on pacing and activities and safety. Had been told no further bathing assistance available through benefit, patient does need continued support requested if further problems regarding this to let me know and I would followup. 3. Anorexia/weight loss. Patient perceives she's eating just fine, she does eat a small amount of small portions of each meal. In review of her total caloric intake is less than adequate. Encouraged the use of supplements as patient allows. 4. Advanced care planning. Patient does present with functional cognitive decline, most likely is not a further candidate for treatment in weighing the benefits and burdens. Patient at high risk for recurrent hospitalizations for infection, sequela from a fall, for exacerbation of her heart failure. Patient dislikes being in the hospital, family struggling regarding transition of care and at what point to start hospice. Encouraged to have daughter contact me for further information and to address questions. Time Spent: 30 minutes spent in counseling regarding anticipatory guidance, symptom management and review of the continuum of care.
== END 2017-02-03 13:00 | disposition home or self-care (01) ==
LOC: PC 12:59
PROVIDERS: ATTEND Nurse Practitioner Adult Health
DX: Z51.5 Encounter for palliative care (principal); R60.0 Localized edema; R53.83 Other fatigue; R63.0 Anorexia; C34.32 Malignant neoplasm of lower lobe, left bronchus or lung; R41.89 Other symptoms and signs involving cognitive functions and awareness; I50.20 Unspecified systolic (congestive) heart failure; R42 Dizziness and giddiness; R06.09 Other forms of dyspnea; R35.0 Frequency of micturition; R39.15 Urgency of urination; R32 Unspecified urinary incontinence; M62.81 Muscle weakness (generalized); R26.9 Unspecified abnormalities of gait and mobility; Z99.3 Dependence on wheelchair; F41.9 Anxiety disorder, unspecified; Z66 Do not resuscitate
CPT/HCPCS: 99214

== ENCOUNTER 2017-03-10 08:00 | Outpatient (CLI) | payer MEDICARE, OTHER ==
[2017-03-10 15:52] LABS: BASOPHILS % (AUTO) 0.5 %; EOSINOPHILS # (AUTO) 0.1 10^3/uL (0.0-0.7); EOSINOPHILS % (AUTO) 0.7 %; HCT - HEMATOCRIT 36.4 % (37.0-47.0); HGB - HEMOGLOBIN 11.9 g/dL (12.0-16.0); LYMPHOCYTES # (AUTO) 1.1 10^3/uL (1.5-3.5); LYMPHOCYTES % (AUTO) 12.2 %; MEAN CORPUSCULAR HEMOGLOBIN 30.6 pg (27.0-31.0); MEAN CORPUSCULAR HGB CONC 32.6 g/dL (32.0-36.0); MEAN CORPUSCULAR VOLUME 93.7 fL (81.0-99.0); MONOCYTES # (AUTO) 0.6 10^3/uL (0.0-1.0); MONOCYTES % (AUTO) 6.1 %; NEUTROPHILS # (AUTO) 7.4 10^3/uL (1.5-6.6); NEUTROPHILS % (AUTO) 80.5 %; NUCLEATED RED BLOOD CELLS AUTO 0.1 /100WBC; RED BLOOD COUNT 3.89 10^6/uL (4.20-5.40); RED CELL DISTRIBUTION WIDTH 20.7 % (12.0-15.0); UNCORRECTED WHITE BLOOD COUNT 9.2 x10^3/uL; WHITE BLOOD COUNT 9.2 x10^3/uL (4.8-10.8)
[2017-03-10 16:12] LABS: PLATELET ESTIMATE, MANUAL NORMAL (130-450,000) (NORMAL); PLATELET MORPHOLOGY NORMAL APPEARANCE (NORMAL)
[2017-03-10 16:27] LABS: ALBUMIN/GLOBULIN RATIO 0.9 (1.0-2.2); BILIRUBIN,TOTAL 0.6 mg/dL (0.2-1.0); CALCIUM 8.4 mg/dL (8.5-10.3); CREATININE 0.8 mg/dL (0.4-1.0); MAGNESIUM 1.7 mg/dL (1.7-2.8); POTASSIUM 4.5 mmol/L (3.5-5.0); TOTAL PROTEIN 7.1 g/dL (6.7-8.2)
== END 2017-03-10 08:01 | disposition home or self-care (01) ==
LOC: LAB.R 08:00
PROVIDERS: ATTEND Family Medicine
DX: I50.22 Chronic systolic (congestive) heart failure (principal); D63.8 Anemia in other chronic diseases classified elsewhere; E87.1 Hypo-osmolality and hyponatremia; E11.9 Type 2 diabetes mellitus without complications; E78.5 Hyperlipidemia, unspecified; I10 Essential (primary) hypertension
CPT/HCPCS: 80053; 83735; 85025

== ENCOUNTER 2017-04-06 13:00 | Outpatient (CLI) | payer MEDICARE, OTHER ==
--- NOTE | 2017-04-06 20:22 | CONSULTATION NOTE ---
Palliative Care Follow Up - Referral Referring Provider: Dr. Opal Pagan Time of Visit: [id number] Referral setting: Home (It is a taxing and considerable effort for the patient to leave the home secondary to new avulsion fracture and wheelchair bound status ) Referral Reason: Small Cell Lung Cancer - Information Sources Records reviewed: Previous records reviewed History/Review of Systems obtained from: Patient, Family (Daughter Priya and Juno) Exam limitations: Clinical condition (patient with severe short term memory deficits and cognitive decline) - History of Present Illness Update Brief HPI Update: This is a janis 76-year-old woman with a significant past history for small cell lung cancer originally diagnosed with limited stage with concurrent chemoradiation that was completed in January 2014. This did include prophylactic brain radiation that has resulted in progressive memory loss and cognitive decline. She was diagnosed with recurrent small cell lung cancer the left lung and 03/2016 and had received chemotherapy for this, most recently she is currently not receiving further chemotherapy, this has much to do with patient's underlying functional status, weight loss, and cognitive decline. Agreement had been due just to wait and see, and eventually transition to her to hospice. Unfortunately on 03/28 she did have a fall that resulted in an avulsion fracture of her left hip. Was a portion of the greater trochanter that was not affecting her left hip arthroplasty. It has left her mostly wheelchair bound. She continues to be quite impulsive which has added to the complexity of her care. She does have pain in that left hip managed probably not maximally but moderately with oxycodone one half tab in the a.m. 1 tablet at bedtime. She does continue to appear quite frail, with decreased intake, and sleeping more. She does report anorexia. She does have support of [employer] as well as some private caregiving support that they are looking at increasing after the holidays. Social History - Living Situation Living arrangement: At home Living Situation: With spouse/s.o. Support System: She has 3 adult children with grandchildren as well. Her daughter Priya is very much involved in her care she does live in [place]. And her spouse is very good caregiver though has been very frustrated with her impulsivity and cognitive decline. Patient does have some awareness of this but is unable to remember most things. Though she remains quite delightful and positive in her responses today. Medications/Allergies - Medications Home Medications: Ambulatory Orders Medication Instructions Recorded Confirmed Metoprolol Tartrate [Lopressor] 25 mg PO BID 12/11/12 03/29/17 Acetaminophen [Tylenol] 1,000 mg PO BID 12/10/13 03/29/17 Lidocaine Patch 5% [Lidoderm Patch] 1 each TOP DAILY PRN 06/02/15 03/29/17 Cholecalciferol (Vitamin D3) 2,000 units PO DAILY 04/05/16 03/29/17 [Vitamin D3] Loperamide HCl [Imodium A-D] 2 mg PO QID PRN 04/12/16 03/29/17 Loratadine [Claritin] 10 mg PO QPM 08/30/16 03/29/17 Lisinopril [Zestril] 2.5 mg PO DAILY #30 tablet 01/04/17 03/29/17 Furosemide 10 mg PO DAILY 02/06/17 03/29/17 Aspirin [Aspirin EC] 2 tab PO DAILY 03/14/17 03/29/17 Ondansetron [Ondansetron Odt] 8 mg PO PRN PRN 03/14/17 03/29/17 oxyCODONE [Roxicodone] 2.5 - 5 mg PO Q4HR PRN 04/06/17 04/06/17 - Allergies Allergies/Adverse Reactions: Allergies Allergy/AdvReac Type Severity Reaction Status Date / Time Sulfa (Sulfonamide Allergy Intermediate Rash Verified 01/23/17 22:25 Antibiotics) Review of Systems - Constitutional Constitutional: reports: Fatigue, Poor appetite, Weight loss - Ears, Nose & Throat Ears, Nose & Throat: reports: Hearing loss - Cardiovascular Cardiovascular: reports: Exertional dyspnea, Decr. exercise tolerance. denies: Chest pain - Respiratory Respiratory: reports: Cough, Sputum production (mostly at night), SOB with exertion - Gastrointestinal Gastrointestinal: reports: Poor appetite, Early satiety. denies: Abdominal pain , Constipation, Nausea - Genitourinary Genitourinary: reports: Frequency - Musculoskeletal Musculoskeletal: reports: Stiffness, Muscle weakness - Integumentary Integumentary: reports: Dryness, Hair changes (alopecia) - Neurological Neurological: reports: General weakness, Memory problems - Psychiatric Psychiatric: reports: Other (impulsive, does not ask for assistance despite pain and gets up unsupervised). denies: Depression - Hematologic/Lymphatic Hematologic/Lymphatic: denies: Recurrent infections - All Other Systems All Other Systems: reports: Reviewed and negative Physical Exam - Vital Signs Temperature: 97.4 C Pulse Rate: 60 Respiratory Rate: 18 O2 Saturation: 96 (ra @ rest) Blood Pressure: 104/64 - Physical Exam General Appearance: positive: No acute distress Eyes Bilateral: positive: Normal inspection ENT: positive: ENT inspection nml, No signs of dehydration Neck: positive: Trachea midline Cardiovascular: positive: Irregularly irregular Respiratory: positive: Diminished in bases Abdomen: positive: Soft, Nml bowel sounds Skin: positive: Pallor, Pressure wound (Stage I with some dark tissue injury on sacral/coccyx area about 3 x 5 cm area total), Other (severe skin peeling on feet and ankles) Extremities: positive: Pedal edema (slight pedal edema in ankles only; sits dependent most of the day unable to prop feet up secondary to the pain) Neurologic/Psychiatric: positive: Mood/affect nml, Disoriented to time, Weakness Palliative Care - POLST Patient has POLST: Yes POLST Status: DNR, Comfort Measures Pain: Pain worsening, Location (left hip, worsens with weight bearing; worse at night; patient has difficulty remembering not to get up or that she is to be careful) Tiredness/Fatigue: Moderate (4-6) Drowsiness/Sedation: Mild (1-3) Nausea: None Depression: None Anxiety: None Dyspnea: Mild (1-3) Anorexia: Severe (7-10), Weight loss (unable to weigh with nonweightbearing) Sleep: Variable sleep pattern Constipation: No Feelings of wellbeing/Perceived Quality of Life: Fair, Acceptable, Worsening Performance Status: Patient spends majority of her time in the recliner, Now needing to transfer to the wheelchair and to go to bed or for toileting. They do have bathing assist once a week, looking at adding a second time. Patient can feed herself though is quite frustrating to has been unable to really direct which she wants to eat with her poor appetite. She is working with OT on improve transfers and some strengthening. - Palliative Care Discussion: Home visit was made to facilitate family conference. Patient quite happy and content "tach in" she has a beautiful view of the sound. She reports everything is "fine". She is looking forward to Thanksgiving. She does have a picture of an ultrasound of her new [facility], which is due in September. She is quite excited about this. I suspect everyone is somewhat sad that most likely she will not live to see this. I did introduce again the concept of hospice, support for her and her family given she does have a serious illness. Similar to the previous responses, she is right reports not yet. We did agree that it is inevitable, is not going to beThe "if" with the "when" Pain the groundwork for future referral. Family is quite open to this support, but awaiting patient to be ready. We did discuss they do have home health support currently, but at the point of time this discharge that this would be a good segue into continued support. We also reviewed that if she were urgently to decline or it did feel like this would be welcome sooner to contact myself to facilitate referral. Patient does seem somewhat circumspect, despite her cognitive decline she says she does have some "what if questions" but is not ready to ask them yet, she did say she felt comfortable though being able to approach that with myself later. I did spend some time with the discussing her current state of affairs, her limitations with her cognitive deficits, and ways to respond and approach her given her limitations. He does feel quite guilty that he gets so short with her and frustrated. I did expand on hospice support somewhat more with him to increase his understanding. He does feel this would be helpful in the future. They are having a family gathering around [place] and are looking forward to being together. Bellsylvietiffany though recognizing it most likely is her last Thanksgiving together Impression and Recommendations - Palliative Care Impression: This is a janis 76-year-old woman with recurrent small cell lung cancer, she does have continued cognitive and functional decline. She has a recent acute fracture that has added to her pain and distress, as well as her needing to be wheelchair bound. She presents with fairly high symptom burden of uncontrolled pain, anorexia, fatigue, and severe short-term memory loss. She is appropriate for hospice referral, awaiting transition to when patient and family accepting of services. Will continue with palliative care until this time. Recommendations/Counseling Done: 1. Pain attributed to acute fracture. Patient does complain of moderate to severe pain, even after sitting for several minutes up to an hour. They are using half a tablet of oxycodone and 1 tab at bedtime. This is 5 mg. Counseling regarding most likely not lasting that long duration of results is usually 3-4 hours. Did encourage to at least add half a 5 mg tab in the middle of the day. Could repeat as needed. Patient does seem to tolerate them without increased sedation and is describing uncontrolled pain. They also use acetaminophen to bolster this. She was on 650 mg scheduled twice daily, they will increase this to thousand milligrams twice daily. 2. Anorexia. Patient with early satiety, taste changes, she denies nausea reports her bowels are moving without difficulty. Counseling for strategies to increase intake, also provided reassurance that this most likely is attributed to her progressive disease status as well. 3. Lower extremity edema. She is sitting with her feet dependent. She really only has trace edema in her ankles. Did discuss changing her Lasix from 20 mg daily to a half tab daily for 10 mg. 4. Stage I decub. Prescription was provided for wheelchair/chair cushion for pressure relief. Reviewed back condition is too low putting more pressure on backside. Patient high risk for further skin breakdown is being seen by feedings and home health will follow up with them for monitoring and possible use of Mepilex for protection. 5. Advanced care planning. Did introduce hospice support, will continue to monitor for acceptance. Does appear goals of care of family are in alignment, patient is the one he is resistant. The patient does not really have understanding in weighing benefits and burdens related to her current cognitive status. She will though most often deferred her . We did agree to revisit this after the holidays. Time Spent: 60 minutes with greater than 50% of this done in counseling regarding opioid use , pain control, ways to adjust patient's diminishing caloric intake, as well as anticipatory guidance towards moving to hospice.
== END 2017-04-06 13:01 | disposition home or self-care (01) ==
LOC: PC 13:00
PROVIDERS: ATTEND Nurse Practitioner Adult Health
DX: Z51.5 Encounter for palliative care (principal); S72.002D Fracture of unspecified part of neck of left femur, subsequent encounter for closed fracture with routine healing; R63.0 Anorexia; R60.0 Localized edema; L89.151 Pressure ulcer of sacral region, stage 1; R41.3 Other amnesia; R45.87 Impulsiveness; Z79.82 Long term (current) use of aspirin; Z79.891 Long term (current) use of opiate analgesic; R53.83 Other fatigue; R06.09 Other forms of dyspnea; R05 Cough; M62.81 Muscle weakness (generalized); Z99.3 Dependence on wheelchair; Z66 Do not resuscitate
CPT/HCPCS: 99350

== ENCOUNTER 2017-04-25 14:00 | Outpatient (CLI) | payer MEDICARE, OTHER ==
--- NOTE | 2017-04-25 19:32 | CONSULTATION NOTE ---
Palliative Care Follow Up - Referral Referring Provider: Dr. Patience Pagan Time of Visit: [id number] Referral setting: Home (it is a taxing and considerable effort for the patient to leave the home secondary to hip fx and fatigue) Referral Reason: NonSmall Cell Lung Cancer - Information Sources Records reviewed: Previous records reviewed History/Review of Systems obtained from: Patient, Family ( Juno present during the visit) Exam limitations: Clinical condition - History of Present Illness Update Brief HPI Update: This is a janis 76-year-old woman with significant past history for small cell lung cancer originally diagnosed with limited stage, with concurrent chemoradiation that was completed in January 2014. This did include prophylactic brain radiation and has continued to result in progressive memory loss and ongoing cognitive decline. She has since been diagnosed with recurrent small cell lung cancer and left lung, has received chemotherapy, but given her underlying functional status, weight loss and ongoing decline at this point in time she is receiving only supportive care. The plan is to transition to hospice in the next couple weeks. Unfortunately early March she had a fall that resulted in a avulsion fracture of her left hip. This is left her mostly wheelchair bound though she is making progress. Her pain has improved and is only needing oxycodone 1 tablet at bedtime. She continues to be quite frail, quite pale in color, her appetite has improved though. But what has most distressing and problematic is been her impulsiveness, her short-term memory issues, and her fatigue.Thus putting her at risk for another fall and the sequela relating to this. Social History - Living Situation Living arrangement: At home Living Situation: With spouse/s.o. Support System: Spouse Juno, is her caregiver. He is quite exhausted as she needs 24 hour supervision. They do have a alarm that does help remind her and notify him when she gets up. They are winding up with home health care, to have some bathing assistance, and continue to encourage increased use of respite Medications/Allergies - Medications Home Medications: Ambulatory Orders Medication Instructions Recorded Confirmed Metoprolol Tartrate [Lopressor] 25 mg PO BID 12/11/12 04/25/17 Acetaminophen [Tylenol] 1,000 mg PO BID 12/10/13 04/25/17 Lidocaine Patch 5% [Lidoderm Patch] 1 each TOP DAILY PRN 06/02/15 04/25/17 Cholecalciferol (Vitamin D3) 2,000 units PO DAILY 11/15/16 12/05/17 [Vitamin D3] Loperamide HCl [Imodium A-D] 2 mg PO QID PRN 04/12/16 04/25/17 Loratadine [Claritin] 10 mg PO QPM 08/30/16 04/25/17 Lisinopril [Zestril] 2.5 mg PO DAILY #30 tablet 01/04/17 04/25/17 Furosemide 10 mg PO DAILY 02/06/17 04/25/17 Aspirin [Aspirin EC] 2 tab PO DAILY 03/14/17 04/25/17 Ondansetron [Ondansetron Odt] 8 mg PO PRN PRN 03/14/17 04/25/17 oxyCODONE [Roxicodone] 2.5 - 5 mg PO Q4HR PRN 04/06/17 04/25/17 - Allergies Allergies/Adverse Reactions: Allergies Allergy/AdvReac Type Severity Reaction Status Date / Time Sulfa (Sulfonamide Allergy Intermediate Rash Verified 01/23/17 22:25 Antibiotics) Review of Systems - Constitutional Constitutional: reports: Fatigue - Eyes Eyes: reports: Vision loss, Corrective lenses - Ears, Nose & Throat Ears, Nose & Throat: reports: Hearing loss, Postnasal drainage - Cardiovascular Cardiovascular: reports: Decr. exercise tolerance - Respiratory Respiratory: reports: Cough, SOB with exertion - Gastrointestinal Gastrointestinal: reports: Good appetite. denies: Constipation, Nausea, Reflux/ heartburn - Genitourinary Genitourinary: reports: Frequency (up 2-3 times at night) - Musculoskeletal Musculoskeletal: reports: Muscle weakness, Transfer issues - Integumentary Integumentary: reports: Dryness - Neurological Neurological: reports: General weakness, Memory problems (These are worsening, patient is able to speak in full sentences, but has reports is unable to remember even 5-10 minutes ago. She does have some long-term memory. She is still quite social and interactive.) - Psychiatric Psychiatric: denies: Depression - Endocrine Endocrine: reports: Intolerance to cold - Hematologic/Lymphatic Hematologic/Lymphatic: reports: Anemia. denies: Recurrent infections - All Other Systems All Other Systems: reports: Reviewed and negative Physical Exam - Vital Signs Temperature: 97.5 C Pulse Rate: 96 Respiratory Rate: 18 O2 Saturation: 95 (ra@rest) Blood Pressure: 112/70 - Physical Exam General Appearance: positive: No acute distress, Alert Eyes Bilateral: positive: Normal inspection ENT: positive: No signs of dehydration Neck: positive: No JVD, Trachea midline Cardiovascular: positive: Regular rate & rhythm Respiratory: positive: Diminished throughout, Rales (crackles in left lower lobe ) Abdomen: positive: Non-tender, Soft, Nml bowel sounds Skin: positive: Pallor, Pressure wound (Stage I decub on coccyx/sacral area. Is on pressure relief cushion. Stage II area does appear healed and filled and , no moist desquamation at this point in time.), Other (Small crack on her right heel.Less than 0.5 cm and slit in nature. Heels very dry, no skin peeling , feet with poor circulation and cold to touch. She has no pedal edema though. No signs or symptoms of infection) Extremities: positive: No pedal edema, Other (Hands and feet slightly bluish in color, cool to touch. Patient denies distress with this.) Palliative Care - POLST Patient has POLST: Yes POLST Status: DNR, Comfort Measures Pain: Pain improved (mostly with weight bearing left hip) Tiredness/Fatigue: Moderate (4-6) Drowsiness/Sedation: None Nausea: None Depression: None Anxiety: Mild (1-3) Dyspnea: Mild (1-3) Anorexia: Mild (1-3) Sleep: Sleep improved Constipation: Yes, Managed Feelings of wellbeing/Perceived Quality of Life: Fair, Acceptable, Comment ( Perceives herself as doing fairly well for having cancer is her observation) Performance Status: Patient able to stand and transfer to wheelchair, manages a few steps. Unfortunately with the pain improved less likely to ask for assistance or use her walker. She is getting assistance with bathing. - Palliative Care Discussion: Patient when asked how she is feeling about how things are going, she reports she has more anger versus sadness. She denies depression, she reports she has always been somewhat compliant, and not a complainer. She recalls she had been a young child with rheumatic fever and had lots going on to her life. She perceives herself as excepting, but is frustrated with her lack of memory. She perceives her current quality of life is acceptable. Does seem to understand the seriousness of her illness, but unable to really critically think her process some of this. Did discuss with as home health wrapping up, patient does appear to be more frail, would recommend we start looking at transition to hospice. Discussed given her current memory issues most likely would not remember much regarding the transition other than just more support in the home. Agreed would get port flush, make sure there is no further intervention to assist with fatigue i.e. blood transfusion, will contact [facility] to see about transitioning in the next week. Impression and Recommendations - Palliative Care Impression: This is a 76-year-old woman with small cell lung cancer, currently with just palliative and supportive care. She has recently had a left hip avulsion fracture does appear to be healing with pain improved. She continues with memory issues, most likely attributed to radiation side effects and possibly hyponatremia. 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 Patient's symptom burden low at this time. But does appear quite frail and continuing to have both functional and cognitive decline Recommendations/Counseling Done: 1. Left hip pain secondary to avulsion fracture. This does appear to be healing , pain is only with weightbearing. Is managing with Tylenol thousand milligrams twice daily, as well as 1 tab of oxycodone at bedtime. Patient does not congruent and reporting of pain, at the time of visit she denies it. But does seem to reflect at times that it is quite bad. manages by watching for pain behaviors, does report this is improved. 2. Stage I decub on coccyx. This has improved, they do have pressure relief cushion, patient reports feeling better 3. Wound on right heel, does appear to be cracked from dryness, reviewed using ointment and moisturizing after bathing. Be quite cold to touch, reflecting poor circulation patient denies it is uncomfortable. No pedal edema. 4. Lower extremity edema this is currently resolved, will have labs drawn on , may consider discontinuing Lasix at this point in time. 5. Anorexia. She is doing better with food and fluid intake, is not giving her any choices on just some providing foods this is taken to stress off for both of them. Did encourage as patient missing going out for lunch with friends, to have friends bring take out to her, will decrease her isolation as well as stimulate increased intake. #6 advanced care planning. Patient really not able to participate in weighing benefits and burdens of transition to hospice, she does seem to have understanding of the seriousness of her illness and that we are no longer going to be offering treatment is the question as far as her ability to hold on that thought process. Has been is ready for increased support, he is quite anxious about her impending decline, would benefit greatly from ongoing hospice support as well as anticipatory guidance. Did review expected decline and high risk for sequela of a fall and or other acute event. Will follow up with ASHLEY PETERSON to see if timing gibson they are wrapping up to initiate hospice referral. Time Spent: 45 minutes with greater than 50% of this done in counseling regarding anticipatory guidance, transition to hospice, management of feelings regarding her impending decline as well as coordination of care. We will go ahead and order labs, transfuse if indicated, and follow-up with Ashley to consider transition to hospice in the next week.
== END 2017-04-25 14:01 | disposition home or self-care (01) ==
LOC: PC 14:00
PROVIDERS: ATTEND Nurse Practitioner Adult Health
DX: Z51.5 Encounter for palliative care (principal); S72.092D Other fracture of head and neck of left femur, subsequent encounter for closed fracture with routine healing; M25.552 Pain in left hip; L89.151 Pressure ulcer of sacral region, stage 1; R63.0 Anorexia; R41.81 Age-related cognitive decline; Z99.3 Dependence on wheelchair; R45.87 Impulsiveness; R41.3 Other amnesia; Z79.82 Long term (current) use of aspirin; Z79.891 Long term (current) use of opiate analgesic; R53.83 Other fatigue; R05 Cough; R06.09 Other forms of dyspnea; E87.1 Hypo-osmolality and hyponatremia; M62.81 Muscle weakness (generalized); Z66 Do not resuscitate
CPT/HCPCS: 99349